=== PATIENT | female | born 1975 | race Caucasian/White ===

== ENCOUNTER 2024-06-21 19:34 | Observation (INO) | payer MEDICAID, SELFPAY ==
[2024-06-21 19:35] VITALS: BMI 40.7
--- NOTE | 2024-06-21 19:39 | EKG_ITS ---
[facility] Test Date: 2024-06-21 Pat Name: LUZ MEZA Department: Room: - Gender: Female Physician Compensation Analyst: : 1975 Requested By: ED Temporary Provider Order Number: [id number] Reading MD: ED Temporary Provider Measurements Intervals [place] Rate: 90 P: 47 IL: 169 QRS: 78 QRSD: 165 T: -5 QT: 434 QTc: 532 Interpretive Statements SINUS RHYTHM INDETERMINATE AXIS RIGHT BUNDLE BRANCH BLOCK [120+ ms QRS DURATION, UPRIGHT V1, 40+ ms S IN I/aVL/V4/V5/V6] MODERATE T-WAVE ABNORMALITY, CONSIDER LATERAL ISCHEMIA [-0.1+ mV T WAVE IN I/aVL/V5/V6] Compared to ECG 03/17/2023 07:43:30 Indeterminate axis now present Sinus tachycardia no longer present Left posterior fascicular block no longer present T-wave abnormality still present Possible ischemia still present /store/S0/[id number]/ecg/[id number].pdf
[2024-06-21 20:18] VITALS: BP 153/97; PULSE 91; RESP 18; TEMP 36.9; O2SAT 96
--- NOTE | 2024-06-21 20:21 | XR_ITS ---
Examination: PA lateral chest 2 views Technique: Upright PA lateral chest 2 views Exam date and time: June 21, 2024 0827 hrs. Indications: Chest pain beginning 3 days ago. Findings: Normal heart size Early pneumonia right middle lobe Pulmonary nodule left upper lobe again depicted, 12 mm Osseous structures intact Impression: Early pneumonia right middle lobe Recommend AP lordotic chest follow-up to confirm pulmonary nodule left upper lobe
--- NOTE | 2024-06-21 20:21 | PD.EDRME ---
Rapid Medical Screening Exam E Arrival date/time: 06/21/24 19:34 48-year-old female presents emergency department complaining of chest pain that radiates to left arm and upper neck with nausea for several days. Chief Complaint: Chest Pain Time Seen by Provider: 06/21/24 20:18 Vital signs: Vital Signs Temperature 98.4 F 06/21/24 20:18 Pulse Rate 91 06/21/24 20:18 Respiratory Rate 18 06/21/24 20:18 Blood Pressure 153/97 H 06/21/24 20:18 Pulse Oximetry (%) 96 06/21/24 20:18 Oxygen Delivery Method Room Air 06/21/24 20:18 Vital signs reviewed by provider: Yes
[2024-06-21 20:47] LABS: Collection Type, Urine Clean Catch
[2024-06-21 21:13] LABS: Bilirubin,Urine Negative (Negative); Blood,Urine Negative (Negative); Clarity,Urine Clear (Clear/Hazy); Color,Urine Yellow (Lt Yel-Yel); Glucose, Urine Negative (Negative); Ketones,Urine Negative (Negative); Leukocyte Esterase,Urine Negative (Negative); Nitrite,Urine Negative (Negative); PH,Urine 6.5 (5.0-7.0); Protein,Urine Trace (Neg - Trace); RBC,Urine 2 /hpf (0-3); Specific Gravity,Urine 1.021 (1.001-1.035); Squamous Epithelial Cell,Urine 2 /hpf (0-5); WBC,Urine 2 /hpf (0-5)
[2024-06-21 21:23] LABS: Amphetamine/Methamp Scrn,U Negative (Negative); Barbiturate Screen,Urine Negative (Negative); Benzodiazepines Screen,Urine Negative (Negative); Benzoylecgonine Screen, Ur Negative (Negative); Fentanyl Screen,Urine Negative (Negative); Opiate Screen,Urine Negative (Negative); THC Screen,Urine Positive (Negative)
[2024-06-21 21:37] LABS: Basophils # (Auto) 0.1 Thou/mm3 (0.0-0.2); Basophils % (Auto) 1 % (0-2.5); Eosinophils # (Auto) 0.2 Thou/mm3 (0.0-0.5); Eosinophils % (Auto) 3 % (0-10); Hematocrit 38.3 % (36.0-46.0); Hemoglobin 12.3 g/dL (12.0-16.0); Immature Granulocytes % (Auto) 0 % (0-0); Immature Granulocytes Auto 0.02 Thou/mm3 (0.00-0.00); Lymphocytes % (Auto) 37 % (10-50); Mean Corpuscular HGB Conc 32.1 g/dl (31.0-37.0); Mean Corpuscular Hemoglobin 28.9 pg (25.0-35.0); Mean Corpuscular Volume 90 fL (80-100); Monocytes # (Auto) 0.5 Thou/mm3 (0.0-0.8); Monocytes % (Auto) 6 % (0-12); Neutrophils # (Auto) 4.3 Thou/mm3 (1.8-7.7); Neutrophils % (Auto) 54 % (37-80); Nucleated Red Blood Cell % 0 /100 WBC (0); Platelet Count 212 Thou/mm3 (140-440); RDW Standard Deviation 44.9 fL (36.4-46.3); Red Blood Count 4.26 Miln/mm3 (4.00-5.20)
[2024-06-21 21:54] LABS: Partial Thromboplastin Time 28.4 Seconds (22.0-36.0); Prothrombin Time 11.4 Seconds (9.0-12.2)
[2024-06-21 21:56] LABS: B-Type Natriuretic Peptide < 20 pg/mL (0-100)
[2024-06-21 22:07] LABS: Alanine Aminotransferase 11 U/L (10-49); Albumin, Serum 4.3 gm/dL (3.5-5.0); Albumin/Globulin Ratio 1.5 (1.2-2.2); Alkaline Phosphatase 80 U/L (46-116); Anion Gap 6 (7-16); Aspartate Amino Transferase 20 U/L (0-34); BUN/Creatinine Ratio 11 Ratio (12-20); Bilirubin,Total 0.6 mg/dL (0.3-1.2); Blood Urea Nitrogen 9 mg/dL (9-23); Carbon Dioxide 33.4 mMol/L (20.0-31.0); Chloride 99 mMol/L (98-107); Creatinine (Component) 0.8 mg/dL (0.6-1.3); Estimated Creatinine Clearance 97.2 mL/min (>60); Globulin 2.8 gm/dL (2.3-3.5); Glucose 94 mg/dL (74-106); Magnesium 1.8 mg/dL (1.6-2.6); Osmolality,Calculated 274 (275-295); Potassium 3.8 mMol/L (3.4-5.1); Sodium 138 mMol/L (136-145); Total Protein 7.1 gm/dL (5.7-8.2); Troponin I < 0.020 ng/mL (0.0-0.045); eGFR > 60 See Note
[2024-06-21 22:15] LABS: Calcium 6.6 mg/dL (8.3-10.6); Calcium (Corrected) 6.6 mg/dL (8.5-10.1)
[2024-06-21 23:48] LABS: Free T4 (Free Thyroxine) 1.19 ng/dL (0.89-1.76)
[2024-06-22] VITALS (18 sets, daily range): BP systolic 131–193; BP diastolic 81–112; PULSE 56–92; RESP 12–98; TEMP 36.6–36.9; O2SAT 94–98; BMI 46.2
--- NOTE | 2024-06-22 01:39 | PD.EDCHEST ---
ED Chest Pain RME/HPI General Chief Complaint: Chest Pain Stated Complaint: CHEST PAIN X 2 DAYS Time Seen by Provider: 06/21/24 20:18 Arrival date/time: 06/21/24 19:34 RME / HPI RME / HPI narrative: 06/21/24 19:34 48-year-old female presents emergency department complaining of chest pain that radiates to left arm and upper neck with nausea for several days. ---- Dr. Lauren?s Main ED Evaluation: 48yo female with pmhx COPD, HTN, asthma, cardiomyopathy, hypothyroidism presents to the ED for a chief complaint of intermittent chest pain x today. Patient states her pain radiates up her neck and to her left arm. She reports associated muscle spasms and cramps, nausea, a headache, numbness, tingling, and sweating. Patient states she took her sublingual nitroglycerin at home without any alleviation of symptoms, so she came in for evaluation. Patient denies any shortness of breath or any other associated symptoms. No known allergies. Patient is currently on a loop recorder, reporting she has a follow-up visit with Dr. Park in 2.5 months to get it read. Related Data Home Medications ?Medication ?Instructions ?Recorded ?Confirmed olanzapine 2.5 mg tablet (Zyprexa) 5 mg PO QDAY 04/25/18 03/28/19 venlafaxine 75 mg capsule,extended 75 mg PO QHS 04/25/18 03/28/19 release 24 hr (Effexor XR) losartan 100 1 tab PO QDAY 04/30/18 03/28/19 mg-hydrochlorothiazide 25 mg tablet amlodipine 5 mg tablet 5 mg PO DAILY 03/28/19 03/28/19 buprenorphine 12 mg-naloxone 3 mg 12 mg buccal BID 03/28/19 03/28/19 sublingual film (Suboxone) levothyroxine 125 mcg tablet 125 mcg PO DAILY 03/28/19 03/28/19 Previous Rx's ?Medication ?Instructions ?Recorded furosemide 20 mg tablet (Lasix) 20 mg PO QAM PRN edema #10 tabs 03/28/19 potassium chloride 10 mEq 10 meq PO QDAY #10 tabs 03/28/19 tablet,extended release nirmatrelvir 300 mg (150 mg See Rx Instructions PO .COMPLEX 09/13/23 x2)-ritonavir 100 mg tablet,dose #30 tabs pack (Paxlovid) Allergies Allergy/AdvReac Type Severity Reaction Status Date / Time No Known Allergies Allergy Verified 06/21/24 19:38 Review of Systems Review of Systems Systems Reviewed: All systems reviewed, normal except as documented Past Medical History Past Medical History NEUROLOGIC: Negative Neurological Disorders or Seizures CARDIAC: Positive Cardiac Disorders, Cardiomyopathy and Hypertension; Negative Congestive Heart Failure RESPIRATORY: Positive Chronic Obstructive Pulmonary Disease (COPD), Asthma and Pneumonia GASTROINTESTINAL: Positive Gastrointestinal Disorders, Gall Bladder Disease and Ulcer; Negative Hepatitis or Colorectal Cancer GENITOURINARY: Negative Genitourinary Disorders or Renal Disease REPRODUCTIVE: Positive Previous Pregnancies; Negative Breast Cancer or Pelvic Inflammatory Disease MUSCULOSKELETAL: Positive Musculoskeletal Disorders, Scoliosis and Fractures ENT: Positive Ear Infection ENDOCRINE: Negative Endocrine Disorders, Diabetes Mellitus Type 1 or Diabetes Mellitus Type 2 HEMATOLOGIC: Positive Blood Disorders and Anemia PSYCHO/SOCIAL: Positive Depression and Anxiety OTHER HISTORY: Positive Shingles, Chicken Pox and Mumps; Negative Hospitalization, Autoimmune Disease, Down Syndrome, Developmental Delay, Falls, Blood Transfusions, Anesthesia Reactions, Organ Transplant, Chemotherapy, Radiation Therapy, Hyperbaric Therapy, MRSA, VRSA, Vancomycin-Resistant Enterococci, Human Immunodeficiency Virus (HIV), Measles, Rubella (Australian Measles), Pertussis, Clostridium Difficile, Breast Cancer, Cervical Cancer or Colorectal Cancer Family History FAMILY HISTORY: Positive Family Respiratory Disorders, Family Cardiac Disorders and Family Cancer; Negative Family Psychiatric Problems, Family Gastrointestinal Problems, Family Surgery or Family Anesthesia Reaction Surgical History SURGICAL: Positive Thyroidectomy, Abdominal Surgery and Tubal Ligation; Negative Cardiac Surgery, Endocrine Surgery, Ear Surgery, Nephrectomy, Joint Replacement, Mastectomy, Lumpectomy or Organ Transplant Social History SMOKING STATUS: Never smoker SUBSTANCE USE: does not use ED Exam Narrative Physical exam: GENERAL APPEARANCE: alert and oriented x 4, well-developed, well-nourished, no acute distress VITALS: All vitals were reviewed and the pulse ox is 98% on room air, which is normal according to my interpretation. HEENT: Normocephalic, atraumatic; pupils equal, round, reactive to light; EOMI; mucous membranes pink, moist; oropharynx clear NECK: Supple LUNGS: CTABL; no wheezes, no rales, no rhonchi HEART: Regular rate, regular rhythm; normal S1, S2; no murmurs ABDOMEN: non distended; normal BS; soft, no tenderness, no guarding, no rebound; no masses, no organomegaly, no hernia BACK: no CVA tenderness EXTREMITIES: atraumatic; no edema NEUROLOGIC: awake; alert and oriented x4; cranial nerves II-XII grossly intact; no focal sensory or motor deficits PSYCHIATRIC: appropriate mood and affect SKIN: warm, dry, normal color; no rashes Course Course Course Narrative: CXR is ordered for determining the etiology of chest pain. Quality Measures none Orders Category Date Time Status EKG (ED ONLY) *Do not use* NOW Care 06/21/24 19:39 Completed EKG (ED Only) Stat Exams 06/21/24 19:39 Draft XR chest 2V Stat Exams 06/21/24 20:21 Completed B-Type Natriuretic Peptide Stat Lab 06/21/24 20:57 Completed CBC Stat Lab 06/21/24 20:57 Completed Comprehensive Metabolic Panel Stat Lab 06/21/24 20:57 Completed Drug Screen,Urine Stat Lab 06/21/24 20:36 Completed Free T4 (Free Thyroxine) Stat Lab 06/21/24 20:57 Completed Magnesium Stat Lab 06/21/24 20:57 Completed Partial Thromboplastin Time Stat Lab 06/21/24 20:57 Completed Prothrombin Time with INR Stat Lab 06/21/24 20:57 Completed TSH [Thyroid Stimulating Hormone] Stat Lab 06/21/24 20:57 Completed Troponin I Stat Lab 06/21/24 20:57 Completed Urinalysis Stat Lab 06/21/24 20:36 Completed Vital Signs Vital signs: Vital Signs Temperature 98.4 F 06/21/24 20:18 Pulse Rate 91 06/21/24 20:18 Respiratory Rate 18 06/21/24 20:18 Blood Pressure 153/97 H 06/21/24 20:18 Pulse Oximetry (%) 96 06/21/24 20:18 Oxygen Delivery Method Room Air 06/21/24 20:18 Chest Pain MDM Narrative MDM Narrative:: Scribe Attestation: 06/22/24 Zena Hogue am scribing for and in the presence of Dr. Lauren. Patient data External records reviewed:: [facility] previous records (Per chart review, patient was seen here on 01/12/24 for anxiety disorder.) Clinical information provided by:: patient Social determinants that could affect healthcare access:: none Patient has the following chronic illnesses:: COPD, HTN, asthma, cardiomyopathy, hypothyroidism How is presenting disease/condition affected by chronic disease/condition?: exacerbated by Evaluation data The following diagnostics were reviewed and interpreted by me:: lab results, radiology exam(s) and EKG tracing(s) Lab and/or radiology exams considered but not ordered:: none Interpretation Summary: CBC is normal, Calcium is low at 6.6, troponin is normal, TSH is elevated at 5.80, Free T4 is normal, UA is unremarkable, UDS is positive for marijuana, according to my interpretation. EKG done at 2014, NSR, rate of 90, normal axis, RBBB, no ectopy, generalized ST abnormalities, QRS: 165, QTc: 483, according to my interpretation. --------- [facility] Report Signed Patient: LUZ MEZA Record#: [id number] Birthdate: 1975 Age/Sex: 48 / F Location: [facility] Attending Dr: Ordering Physician: Sarah Cheung (NGOZI)Dwayne Date of Service: 06/21/24 Procedure(s): XR chest 2V Accession Number(s): [id number] cc: Yulissa Carrington; Art Veras MD; Sarah Cheung (NGOZI)Dwayne~ Examination: PA lateral chest 2 views Technique: Upright PA lateral chest 2 views Exam date and time: June 21, 2024 0827 hrs. Indications: Chest pain beginning 3 days ago. Findings: Normal heart size Early pneumonia right middle lobe Pulmonary nodule left upper lobe again depicted, 12 mm Osseous structures intact Impression: Early pneumonia right middle lobe Recommend AP lordotic chest follow-up to confirm pulmonary nodule left upper lobe Dictated By: Art Veras MD Signed By: <Electronically signed by Art Veras MD in OV> 06/21/24 6425 Medications / Prescriptions Medications or Prescriptions considered but not ordered:: none Medication administrations:: see above Consultations Consultation(s) initiated? (list below): Yes Consultation #1 (Physician, Specialty, Details): Discussed case with [the resident physician, attending Dr. Guerra] from Hospitalist service regarding admission. Discussed patients ED course, exam findings, labs, and radiology results. The Hospitalist [agrees] to accept the patient for admission. Time: 02:29 Diagnosis Chest Pain Differential Diagnosis: pneumothorax and other (STEMI, NSTEMI, PE, aortic dissection) Most likely diagnosis given after review of the tests above:: see below Admission Indicated Admission indicated?: indicated Admission Request Was there a request for admission?: Yes Admission Attestation Admission request attestation: Discussed case with [] from Hospitalist service regarding admission. Discussed patients ED course, exam findings, labs, and radiology results. The Hospitalist [agrees,declines] to accept the patient for admission. Disposition Plan Disposition Plan: Admit Discharge Plan Plan Patient Disposition: Admit Acute Care w/in Hospital Prescriptions/Referrals Prescriptions/Med Rec: No Action venlafaxine [Effexor XR] 75 mg capsule,extended release 24hr 75 mg PO QHS olanzapine [Zyprexa] 2.5 mg tablet 5 mg PO QDAY losartan-hydrochlorothiazide 100-25 mg Tablet 1 tab PO QDAY amlodipine 5 mg Tablet 5 mg PO DAILY levothyroxine 125 mcg Tablet 125 mcg PO DAILY buprenorphine-naloxone [Suboxone] 12-3 mg Film 12 mg buccal BID furosemide [Lasix] 20 mg tablet 20 mg PO QAM PRN (Reason: edema) Qty: 10 0RF potassium chloride 10 mEq tablet extended release 10 meq PO QDAY Qty: 10 0RF Rx Instructions: take with lasix Paxlovid 300 mg (150 mg x 2)-100 mg tablets,dose pack See Rx Instructions .ROUTE .COMPLEX Qty: 30 0RF Rx Instructions: take TWO 150 mg tablets of nirmatrelvir with ONE 100 mg tablet of ritonavir twice daily for 5 days Referrals: Yulissa Carrington PA-C [Primary Care Provider] - In 1 week Problem List Clinical Impression: Hypocalcemia, Chest pain Patient/Caregiver Discharge Instructions Print Language: [place] Island[place] Stand Alone Forms: Evelia Award Info., Patient Portal Info Letter
[2024-06-22] MEDS: MAGNESIUM OXIDE 400 MG TABLET PO (02:49)
[2024-06-22] MEDS: ACETAMINOPHEN IVPB 1,000 MG/100 ML VIAL 250 MG IV (02:49)
--- NOTE | 2024-06-22 04:02 | PD.RESHP ---
Documentation for date of: 06/22/24 HPI History of Present Illness Chief complaint: chest pain History of present illness: HPI: Patient is a 48 year old female with a past medical history significant for essential hypertension, palpitations with implantable loop recorder, depression, anxiety, hypothyroidism s/p total thyroidectomy 2019, obesity, COPD. She follows up with her termite renewal inspector Dr. Park in [place] and PCP at [facility]. Presented to the ED today with a chief complaint of chest pain. Patient endorsed that her chest pain started about 3 days ago. Patient said that she woke up in the morning from sleep and then noticed her chest was hurting. Stated that it was right-sided, both stabbing and pressure like in nature and associated with some tingling of the fingers of her left hand. It lasted for a few moments and then went away. Over the course of the following 3 days patient again had intermittent episodes of chest pain which resolved with sublingual nitroglycerin and acetaminophen. Patient presented to the ED around 3 PM yesterday because she was concerned that her chest pain was not resolving and still had intermittent episodes. Of note patient had complete cardiac workup in the past. She stated that last year December she had a right and left heart catheterization which was reported as normal by her. She also had a transthoracic echocardiogram done which she also stated was normal. Patient also stated that recently she was not compliant with her calcium and vitamin D supplements. ED course: BP 153/97, pulse 91, RR 18, temp 98.4 F, SpO2 96% on room air. Labs significant for Hb 12.3, HCT 38.3, K3.8, Mg 1.8, corrected calcium 6.6, TSH 4.58, Trop <0.02 EKG significant for sinus rhythm, rate 90, RBBB and Q waves in inferior leads. Chest x-ray significant for implantable loop recorder along left fifth rib as well as 12 mm pulmonary nodule left upper lobe. In the ED patient received acetaminophen 1000 Mg IV x 1, magnesium oxide 400 Mg p.o. x 1 and calcium carbonate 600 Mg p.o. x 1. Patient will be admitted to observation for nonspecific chest pain and symptomatic hypocalcemia. Past Medical History Past Medical History Comments PMH COMMENT: Past medical history: ? Palpitations ? Essential hypertension ? Hypothyroidism ? Depression ? Anxiety ? Obesity ? Ex-smoker ? History of alcohol dependence ? COPD Medication list: ?Levothyroxine 137 mcg p.o. daily ? Losartan 100 milligrams p.o. daily ? Aspirin 81 mg p.o. daily ? Gabapentin 300 mg p.o. 3 times daily ? Cymbalta 60 mg p.o. daily ? Suboxone 8/2 1 tab p.o. 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 Previously 20 pack year smoking history. ETHO use: Quit 3 years ago. Previously an alcoholic for 25 years, drank about 24 beers a day. Illicit drug use: Denies Social History Note: lives with and kids Exam Vital Signs Temp Pulse Resp BP Pulse Ox O2 Del Method 98.1 F 60 16 145/95 H 98 Room Air 06/22/24 01:28 06/22/24 01:28 06/22/24 01:28 06/22/24 01:28 06/22/24 01:28 06/22/24 01:28 Results: Labs 06/21/24 20:57 06/21/24 20:57 Labs: Short CBC 06/21/24 Range/Units 20:57 WBC 8.0 (3.6-11.0) Thou/mm3 Hgb 12.3 (12.0-16.0) g/dL Hct 38.3 (36.0-46.0) % Plt Count 212 (140-440) Thou/mm3 BMP 06/21/24 20:57 Sodium 138 Potassium 3.8 Chloride 99 Carbon Dioxide 33.4 H BUN 9 Creatinine 0.8 Glucose 94 Calcium 6.6 L* Cardiac Enzymes 06/21/24 Range/Units 20:57 Troponin I < 0.020 (0.0-0.045) ng/mL Liver Function 06/21/24 Range/Units 20:57 Total Bilirubin 0.6 (0.3-1.2) mg/dL AST 20 (0-34) U/L ALT 11 (10-49) U/L Alkaline Phosphatase 80 (46-116) U/L Albumin 4.3 (3.5-5.0) gm/dL Urine 06/21/24 Range/Units 20:36 Urine Color Yellow (Lt Yel-Yel) Urine Clarity Clear (Clear/Hazy) Urine pH 6.5 (5.0-7.0) Ur Specific [place] 1.021 (1.001-1.035) Urine Protein Trace (Neg - Trace) Urine Glucose (UA) Negative (Negative) Quality Measures Quality Measures none Medications Home Medications and Allergies Home Medications ?Medication ?Instructions ?Recorded ?Confirmed ?Type olanzapine 2.5 mg tablet (Zyprexa) 5 mg PO QDAY 04/25/18 03/28/19 History venlafaxine 75 mg capsule,extended 75 mg PO QHS 04/25/18 03/28/19 History release 24 hr (Effexor XR) losartan 100 1 tab PO QDAY 04/30/18 03/28/19 History mg-hydrochlorothiazide 25 mg tablet amlodipine 5 mg tablet 5 mg PO DAILY 03/28/19 03/28/19 History buprenorphine 12 mg-naloxone 3 mg 12 mg buccal BID 03/28/19 03/28/19 History sublingual film (Suboxone) levothyroxine 125 mcg tablet 125 mcg PO DAILY 03/28/19 03/28/19 History Allergies Allergy/AdvReac Type Severity Reaction Status Date / Time No Known Allergies Allergy Verified 06/21/24 19:38 Visit Medications Acetaminophen (Acetaminophen 325 Mg Tablet) 650 mg PO Q6H PRN PRN Reason: Fever >100.3 or pain Stop: 07/22/24 03:44 Aspirin (Aspirin Ec 81 Mg Tabec) 81 mg PO QDAY MASSIMO Stop: 07/22/24 08:59 Duloxetine HCl (Duloxetine Hcl 30 Mg Capsule) 60 mg PO QDAY MASSIMO Stop: 07/22/24 08:59 Gabapentin (Gabapentin 300 Mg Capsule) 300 mg PO TID MASSIMO Stop: 07/22/24 05:59 Heparin Sodium (Porcine) (Heparin Sod Inj 5000 Unit/Ml Vial) 5,000 unit SC BID MASSIMO Stop: 07/06/24 08:59 Magnesium Sulfate (Magnesium Sulfate Ivpb) 2 gm in 50 mls @ 25 mls/hr IV X1 ONE Stop: 06/22/24 05:56 Levothyroxine Sodium (Levothyroxine Sodium 125 Mcg Tablet) 137 mcg PO ACBR MASSIMO Stop: 07/22/24 05:59 Losartan Potassium (Losartan Potassium 25 Mg Tablet) 100 mg PO QDAY MASSIMO Stop: 07/22/24 08:59 Ondansetron HCl (Ondansetron Inj 2 Mg/Ml Inj 2 Ml) 4 mg IV Q6H PRN; Protocol PRN Reason: NAUSEA OR VOMITING Stop: 07/22/24 03:49 Pantoprazole Sodium (Pantoprazole 40 Mg Tablet) 40 mg PO QDAY MASSIMO Stop: 07/22/24 08:59 Sennosides (Senna Tablet) 1 tab PO QDAY MASSIMO; Protocol Stop: 07/22/24 08:59 Discontinued Medications Calcium Carbonate (Calcium Carbonate 600 Mg Tablet) 600 mg PO X1 ONE Stop: 06/22/24 02:32 Calcium Gluconate (Calcium Gluconate 10% Inj 1 Gm/10 Ml Vial) 1 gm IV X1 ONE Stop: 06/22/24 03:57 Acetaminophen (Ofirmev Inj) 1,000 mg in 100 mls @ 250 mls/hr IV NOW ONE Stop: 06/22/24 02:52 Last Admin: 06/22/24 02:49 Dose: 250 mls/hr Magnesium Oxide (Magnesium Oxide 400 Mg Tablet) 400 mg PO X1 ONE Stop: 06/22/24 02:33 Last Admin: 06/22/24 02:49 Dose: 400 mg Assessment & Plan Plan Patient is a 48 year old female with a past medical history significant for essential hypertension, palpitations with implantable loop recorder, depression, anxiety, hypothyroidism s/p total thyroidectomy 2018, obesity, COPD. She follows up with her termite renewal inspector Dr. Park in [place] and PCP at [facility]. Presented to the ED today with a chief complaint of chest pain. Patient will be admitted to observation for nonspecific chest pain and symptomatic hypocalcemia. 1. Chest pain, unspecified 2. Symptomatic hypocalcemia 3. Palpitations Patient presented with nonspecific chest pain. She stated that it was right-sided stabbing in nature as well as pressure. Also intermittent and resolved with sublingual nitro as well as acetaminophen. Pain did not change in intensity today but patient was worried it might be something serious so she came into the hospital. DDx: Symptomatic hypocalcemia, anxiety, musculoskeletal, pleuritic pain Patient also had an implantable loop recorder placed April 2024 by her recording studio set up worker Dr. Park. EKG significant for sinus rhythm, rate 90, RBBB and Q waves in inferior leads. Trop <0.02 Corrected Ca 6.6, Mg 1.8, K 3.8 Of note patient had complete cardiac workup in the past. She stated that last year December she had a right and left heart catheterization which was reported as normal by her. She also had a transthoracic echocardiogram done which she also stated was normal. Patient also stated that recently she was not compliant with her calcium and vitamin D supplements. Plan: ? Cardiac diet - Telemetry monitoring - PTH - 25 hydroxy vitamin D ? Calcium gluconate 1 g IV x 1 ? Magnesium sulfate 2 g IV x 1 ? KCl 20 mEq p.o. x 1 4. Essential hypertension Home medication losartan 100 Mg p.o. daily Plan: ? Continue home medication losartan 100 Mg p.o. daily 5. Hypothyroidism s/p total thyroidectomy 2018 Patient had total thyroidectomy secondary to malignant nodule. Patient unsure of what type and was lost to follow-up. Home medication levothyroxine 137 mcg p.o. daily, calcium and vitamin D supplements Plan: ? Resume home medication levothyroxine 137 mcg p.o. daily 6. Depression 7. Anxiety Home medication gabapentin 300 Mg p.o. 3 times daily, Cymbalta 60 Mg p.o. daily Plan: ? Resume home medication gabapentin 300 Mg p.o. 3 times daily and Cymbalta 60 Mg p.o. daily Patient quit smoking last year December but previously had 8. Obesity class III Ex-Smoker 96-eexs-piwk history. BMI 40.7 9. History of Alcohol dependence Patient previously had a history of alcohol dependence. Drank for 25 years approximately 24 beers per day. Sober for the past 3 years and currently on Suboxone 8/2 3 times daily. 10. COPD Patient states that she has COPD but not on any home inhalers or medication. Plan: ? DuoNebs as needed Health maintenance: Disposition: IV calcium. Hypocalcemia workup. Observation. Anticipate discharge within next 24 hours Diet: Cardiac Lines: pIVs GI Prophylaxis: Pantoprazole Thrombo Prophylaxis: Heparin Code status: FULL CODE Plan of care discussed with Attending Dr. Sadia Borrego MD PGY 1 Attending Provider Attestation/Addendum 48-year-old obese female with hypertension, hypothyroidism COPD, is being admitted for evaluation and management of chest pain. She currently has a loop recorder. Chest x-ray showed early right-sided pneumonia, there is also a left lung nodule 12 mm. Patient states she's had [place] fever. She seess termite renewal inspector Dr. Park. She's had negative coronary (radial approach) angiogram last December. EKG showed right bundle branch block. Troponin is 0.02. Calcium 6.6.
[2024-06-22] MEDS: CALCIUM CARBONATE 600 MG TABLET PO (04:03)
--- NOTE | 2024-06-22 04:44 | PC.NURSE ---
[address] MADISYN FINE TO GIVE IV CALCIUM AND MAGNESIUM.
[2024-06-22] MEDS: CALCIUM GLUCONATE 10% INJ 1 GM/10 ML VIAL IV (05:19)
[2024-06-22] MEDS: LEVOTHYROXINE SODIUM 25 MCG TABLET PO (05:20)
[2024-06-22] MEDS: Magnesium Sulfate 2 GM Ivpb 2 GM/50 ML BAG IV (05:20)
[2024-06-22] MEDS: POTASSIUM CHLORIDE 20 mEq TABCR PO (05:20)
[2024-06-22] MEDS: GABAPENTIN 300 MG CAPSULE PO ×3 (05:20→21:15)
[2024-06-22] MEDS: LEVOTHYROXINE SODIUM 112 MCG TABLET PO (06:09)
[2024-06-22 07:03] LABS: Basophils % (Auto) 1 % (0-2.5); Eosinophils # (Auto) 0.1 Thou/mm3 (0.0-0.5); Eosinophils % (Auto) 2 % (0-10); Hematocrit 36.1 % (36.0-46.0); Hemoglobin 11.9 g/dL (12.0-16.0); Immature Granulocytes % (Auto) 0 % (0-0); Immature Granulocytes Auto 0.02 Thou/mm3 (0.00-0.00); Lymphocytes # (Auto) 2.4 Thou/mm3 (1.0-4.8); Lymphocytes % (Auto) 35 % (10-50); Mean Corpuscular Hemoglobin 29.1 pg (25.0-35.0); Mean Corpuscular Volume 88 fL (80-100); Monocytes # (Auto) 0.5 Thou/mm3 (0.0-0.8); Monocytes % (Auto) 7 % (0-12); Neutrophils # (Auto) 3.7 Thou/mm3 (1.8-7.7); Neutrophils % (Auto) 55 % (37-80); Nucleated Red Blood Cell % 0 /100 WBC (0); Platelet Count 204 Thou/mm3 (140-440); RDW Standard Deviation 44.9 fL (36.4-46.3); Red Blood Count 4.09 Miln/mm3 (4.00-5.20); White Blood Count 6.8 Thou/mm3 (3.6-11.0)
[2024-06-22 07:49] LABS: Alanine Aminotransferase 13 U/L (10-49); Albumin, Serum 4.2 gm/dL (3.5-5.0); Albumin/Globulin Ratio 1.7 (1.2-2.2); Alkaline Phosphatase 76 U/L (46-116); Anion Gap 8 (7-16); Aspartate Amino Transferase 16 U/L (0-34); BUN/Creatinine Ratio 13 Ratio (12-20); Bilirubin,Total 0.7 mg/dL (0.3-1.2); Blood Urea Nitrogen 9 mg/dL (9-23); Carbon Dioxide 30.7 mMol/L (20.0-31.0); Cardiac Risk Estimate 3.1 RATIO (3.7-5.6); Chloride 98 mMol/L (98-107); Cholesterol 153 mg/dL (132-200); Creatinine (Component) 0.7 mg/dL (0.6-1.3); Estimated Creatinine Clearance 111.1 mL/min (>60); Globulin 2.5 gm/dL (2.3-3.5); Glucose 97 mg/dL (74-106); HDL Cholesterol 50 mg/dL (40-60); LDL Cholesterol,Calculated 90 mg/dL (0-130); Magnesium 2.3 mg/dL (1.6-2.6); Osmolality,Calculated 272 (275-295); Potassium 3.3 mMol/L (3.4-5.1); Sodium 137 mMol/L (136-145); Total Protein 6.7 gm/dL (5.7-8.2); Triglycerides 63 mg/dL (30-150); eGFR > 60 See Note
[2024-06-22 08:12] LABS: Calcium 6.9 mg/dL (8.3-10.6); Calcium (Corrected) 6.9 mg/dL (8.5-10.1)
[2024-06-22] MEDS: SENNA TABLET 1 TAB PO (08:28)
[2024-06-22] MEDS: ASPIRIN EC 81 MG TABEC PO (08:30)
[2024-06-22] MEDS: POTASSIUM CHL 10 mEq IVPB 10 MEQ/100 ML BAG 100 MEQ IV ×3 (08:30→15:46)
[2024-06-22] MEDS: PANTOPRAZOLE 40 MG TABLET PO (08:30)
[2024-06-22] MEDS: LOSARTAN POTASSIUM 25 MG TABLET 100 MG PO (08:31)
[2024-06-22] MEDS: HEPARIN SOD INJ 5000 UNIT/ML VIAL SC ×2 (08:33→21:20)
[2024-06-22] MEDS: DULoxetine HCL 30 MG CAPSULE 60 MG PO (08:46)
[2024-06-22 10:13] LABS: Calcium 7.1 mg/dL (8.3-10.6)
[2024-06-22] MEDS: POTASSIUM CHL 10 mEq IVPB 10 MEQ/100 ML BAG 50 MEQ IV (11:09)
[2024-06-22] MEDS: CALCIUM GLUC/NS 1000MG IVPB 1,000 MG/50 ML BAG 50 MG IV (11:10)
[2024-06-22] MEDS: cefTRIAXone/D5w 1gm IV premix 50 ML IV (11:13)
--- NOTE | 2024-06-22 11:47 | PC.CC ---
Pt Ivis Romero is a 48 yr old female admitted to hospitalist services for chest pain, symptomatic hypocalcemia, palpitations, essential hypertension. ASW met with pt complete initial assessment. At time of encounter pt is noted to be alert and oriented to person, place and situation. Pt expressed understanding admission orders. Pt able to confirm all demographic information. Pt is from home [address] In the home pt lives with her Kristofer Kauffman [phone]. Pt identifies her as surrogate DM. At baseline pt reports being independent with her ADLs and with ambulation. Pt is not diabetic and is not on dialysis. Pt does not require supplemental O2. Pt is followed by [facility] for primary care. At time of D/c pt will return home with transport provided by her family.
--- NOTE | 2024-06-22 11:49 | ECHO_ITS ---
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 16 - 28 cm?/m? Ascending Aorta Diameter 3.0 cm M-MODE Aortic Root Diameter MM 2.9 cm LA Systolic Diameter MM 3.9 cm LA Ao Ratio MM 1.3 AV Cusp Separation MM 2.2 cm DOPPLER AV Peak Velocity 164.0 cm/s AV Peak Gradient 10.8 mmHg AV Mean Gradient 6.0 mmHg AV Velocity Time Integral 38.4 cm LVOT Peak Velocity 105.0 cm/s LVOT Peak Gradient 4.4 mmHg LVOT Velocity Time Integral 25.6 cm LVOT Cardiac Index 2184.4 cm?/min?m? AV Area Cont Eq vti 2.1 cm? AV Area Cont Eq pk 2.0 cm? MV Peak Velocity 116.0 cm/s MV Peak Gradient 5.4 mmHg MV Mean Velocity 65.8 cm/s MV Mean Gradient 2.0 mmHg MV Area PHT 3.1 cm? MR Peak Velocity 486.0 cm/s MR Peak Gradient 94.5 mmHg Mitral E Point Velocity 91.7 cm/s Mitral A Point Velocity 85.4 cm/s Mitral E to A Ratio 1.1 LV E' Lateral Velocity 11.7 cm/s Mitral E to LV E' Lateral Ratio 7.8 LV E' Septal Velocity 7.5 cm/s Mitral E to LV E' Septal Ratio 12.2 TR Peak Velocity 246.0 cm/s TR Peak Gradient 24.2 mmHg FINDINGS Left Ventricle Normal left ventricular size, wall thickness, systolic function with no obvious regional wall motion abnormalities. The ejection fraction is visually estimated at 55-60%. Right Ventricle The right ventricle is normal in size and systolic function. The estimated right ventricular systoli c pressure, 29mmHg. RAP 5. Left Atrium The left atrium is normal by two-dimensional, color flow and Doppler imaging with no structural abnormalities, no thrombus formation present. Right Atrium The right atrium is normal by two-dimensional imaging, color flow and Doppler imaging with no struct ural abnormalities, no thrombus formation present. Atrial Septum The interatrial septum appears normal with no evidence of a shunt. Aorta The aorta is normal by two-dimensional, color flow and Doppler interrogation. Mitral Valve The mitral valve is normal by two-dimensional, color flow and Doppler interrogation. There is mild m itral valve regurgitation. Aortic Valve The aortic valve is trileaflet and normal by two-dimensional, color flow and Doppler interrogation. There is no significant aortic valve regurgitation. Tricuspid Valve The tricuspid valve is normal by two-dimensional, color flow and Doppler interrogation. There is tra ce tricuspid valve regurgitation. Pulmonic Valve There is no significant pulmonic valve regurgitation. Vessels The pulmonary artery appears normal. The inferior vena cava pulmonary and hepatic veins appear tootie l. Pericardium The pericardium is normal by two-dimensional imaging. There is no significant pericardial effusion. CONCLUSIONS Indication: Chest pain Normal LV size and function. Stage I diastolic dysfunction. Estimated EF 55-60% Normal RV size and function. Mild MR. Trace TR. EF appeared normal but images of the apex are not clear. Recommended to follow-up echo with primary casino assistant manager in [place] with [facility] as it is unavailable at this institution. Asher Robert (Electronically Signed) Final Date: 23 June 2024 12:50
--- NOTE | 2024-06-22 12:02 | PD.RESPRO ---
Documentation for date of: 06/22/24 Subjective Subjective Interval history: Patient seen today at the bedside fine awake, alert, oriented x 3. No overnight events reported. Vital signs at this time significant for hypertension, started on nifedipine. Chest x-ray showed signs of pneumonia started on started on ceftriaxone. Corrected calcium was found to be low on morning labs was repleted, ordered PTH, vitamin D, we will follow-up on those. Cardiology Dr. Robert consulted, appreciate recommendations. Exam Vital Signs Temp Pulse Resp BP Pulse Ox O2 Del Method 98.5 F 61 14 152/81 H 95 Room Air 06/22/24 10:40 06/22/24 10:40 06/22/24 10:40 06/22/24 10:40 06/22/24 10:40 06/22/24 10:40 Narrative Exam Physical Exam GENERAL: NAD, AAOx3, obese HEENT: Moist mucosa. Eyes open, symmetrical, & clear CARDIO: Heart RRR, no obvious murmurs PULM: No noted coughing/[id number]-[id number] wheezing GI: Abdomen soft, nondistended, no pain on palpation. BSx4 SKIN/MSK/EXT: No wounds/rashes/edema/amputations, no pain on palpation. Pedal pulses present B/L, paresthesias in left upper, bilateral lower extremities NEURO: AAOx3, no focal neuro deficits, able to move all 4 extremities Objective Labs 06/22/24 06:18 06/22/24 06:18 Labs: Laboratory Results - last 24 hr 06/21/24 06/21/24 06/22/24 20:36 20:57 06:18 WBC 8.0 6.8 RBC 4.26 4.09 Hgb 12.3 11.9 L Hct 38.3 36.1 MCV 90 88 MCH 28.9 29.1 MCHC 32.1 33.0 RDW Std Deviation 44.9 44.9 Plt Count 212 204 Neut % (Auto) 54 55 Lymph % (Auto) 37 35 [place] % (Auto) 6 7 Eos % (Auto) 3 2 Baso % (Auto) 1 1 Neut # (Auto) 4.3 3.7 Lymph # (Auto) 3.0 2.4 [place] # (Auto) 0.5 0.5 Eos # (Auto) 0.2 0.1 Baso # (Auto) 0.1 0.0 Immature Gran # (Auto) 0.02 H 0.02 H Absolute Nucleated RBC 0.00 0.00 Immature Gran % 0 0 Nucleated RBC % 0 0 PT 11.4 INR 1.0 APTT 28.4 Sodium 138 137 Potassium 3.8 3.3 L D Chloride 99 98 Carbon Dioxide 33.4 H 30.7 Anion Gap 6 L 8 BUN 9 9 Creatinine 0.8 0.7 Estim Creat Clear Calc 97.2 111.1 eGFR > 60 > 60 BUN/Creatinine Ratio 11 L 13 Glucose 94 97 Calculated Osmolality 274 L 272 L Calcium 6.6 L* 6.9 L Corrected Calcium 6.6 L* 6.9 L* Magnesium 1.8 2.3 Total Bilirubin 0.6 0.7 AST 20 16 ALT 11 13 Alkaline Phosphatase 80 76 Troponin I < 0.020 B-Natriuretic Peptide < 20 Total Protein 7.1 6.7 Albumin 4.3 4.2 Globulin 2.8 2.5 Albumin/Globulin Ratio 1.5 1.7 Triglycerides 63 Cholesterol 153 LDL Cholesterol, Calc 90 HDL Cholesterol 50 Cholesterol/HDL Ratio 3.1 L TSH 5.80 H Free T4 1.19 Ur Collection Type Clean Catch Urine Color Yellow Urine Clarity Clear Urine pH 6.5 Ur Specific [place] 1.021 Urine Protein Trace Urine Glucose (UA) Negative Urine Ketones Negative Urine Blood Negative Urine Nitrite Negative Urine Bilirubin Negative Urine Urobilinogen (Auto) 2.0 Ur Leukocyte Esterase Negative Urine RBC 2 Urine WBC 2 Ur Squamous Epith Cells 2 Urine Bacteria None Urine Opiates Screen Negative Urine Fentanyl Screen Negative Ur Barbiturates Screen Negative U Amphetamin/Meth Scrn Negative U Benzodiazepines Scrn Negative U Cocaine Metab Screen Negative U Marijuana (THC) Screen Positive A 06/22/24 09:23 WBC RBC Hgb Hct MCV MCH MCHC RDW Std Deviation Plt Count Neut % (Auto) Lymph % (Auto) [place] % (Auto) Eos % (Auto) Baso % (Auto) Neut # (Auto) Lymph # (Auto) [place] # (Auto) Eos # (Auto) Baso # (Auto) Immature Gran # (Auto) Absolute Nucleated RBC Immature Gran % Nucleated RBC % PT INR APTT Sodium Potassium Chloride Carbon Dioxide Anion Gap BUN Creatinine Estim Creat Clear Calc eGFR BUN/Creatinine Ratio Glucose Calculated Osmolality Calcium 7.1 L Corrected Calcium Magnesium Total Bilirubin AST ALT Alkaline Phosphatase Troponin I B-Natriuretic Peptide Total Protein Albumin Globulin Albumin/Globulin Ratio Triglycerides Cholesterol LDL Cholesterol, Calc HDL Cholesterol Cholesterol/HDL Ratio TSH Free T4 Ur Collection Type Urine Color Urine Clarity Urine pH Ur Specific [place] Urine Protein Urine Glucose (UA) Urine Ketones Urine Blood Urine Nitrite Urine Bilirubin Urine Urobilinogen (Auto) Ur Leukocyte Esterase Urine RBC Urine WBC Ur Squamous Epith Cells Urine Bacteria Urine Opiates Screen Urine Fentanyl Screen Ur Barbiturates Screen U Amphetamin/Meth Scrn U Benzodiazepines Scrn U Cocaine Metab Screen U Marijuana (THC) Screen Quality Measures Quality Measures none Assessment & Plan Assessment Current Active Medications: Generic Name Dose Route Start Last Admin Trade Name Freq PRN Reason Stop Dose Admin Acetaminophen 650 mg 06/22/24 03:45 Acetaminophen 325 Mg Tablet PO 07/22/24 03:44 Q6H PRN Fever >100.3 or pain Aspirin 81 mg 06/22/24 09:00 06/22/24 08:30 Aspirin Ec 81 Mg Tabec PO 07/22/24 08:59 81 mg QDAY MASSIMO Administration Duloxetine HCl 60 mg 06/22/24 09:00 06/22/24 08:46 Duloxetine Hcl 30 Mg Capsule PO 07/22/24 08:59 60 mg QDAY MASSIMO Administration Gabapentin 300 mg 06/22/24 06:00 06/22/24 05:20 Gabapentin 300 Mg Capsule PO 07/22/24 05:59 300 mg TID MASSIMO Administration Heparin Sodium (Porcine) 5,000 unit 06/22/24 09:00 06/22/24 08:33 Heparin Sod Inj 5000 Unit/Ml Vial SC 07/06/24 08:59 5,000 unit BID MASSIMO Administration Potassium Chloride 10 meq in 100 mls @ 100 mls/hr 06/22/24 08:30 06/22/24 11:09 Kcl Ivpb IV 06/22/24 12:29 50 mls/hr Q1H MASSIMO Administration Ceftriaxone Sodium/Dextrose 50 mls @ 100 mls/hr 06/22/24 10:07 06/22/24 11:13 Rocephin/D5w 1gm Iv Premix IV 06/29/24 10:06 100 mls/hr QDAY MASSIMO Administration Levothyroxine Sodium 112 mcg 06/22/24 06:00 06/22/24 06:09 Levothyroxine Sodium 112 Mcg Tablet PO 07/22/24 05:59 112 mcg ACBR MASSIMO Administration Levothyroxine Sodium 25 mcg 06/22/24 06:00 06/22/24 05:20 Levothyroxine Sodium 25 Mcg Tablet PO 07/22/24 05:59 25 mcg ACBR MASSIMO Administration Losartan Potassium 100 mg 06/22/24 09:00 06/22/24 08:31 Losartan Potassium 25 Mg Tablet PO 07/22/24 08:59 100 mg QDAY MASSIMO Administration Ondansetron HCl 4 mg 06/22/24 03:50 Ondansetron Inj 2 Mg/Ml Inj 2 Ml IV 07/22/24 03:49 Q6H PRN NAUSEA OR VOMITING Protocol Pantoprazole Sodium 40 mg 06/22/24 09:00 06/22/24 08:30 Pantoprazole 40 Mg Tablet PO 07/22/24 08:59 40 mg QDAY MASSIMO Administration Sennosides 1 tab 06/22/24 09:00 06/22/24 08:28 Senna Tablet PO 07/22/24 08:59 1 tab QDAY MASSIMO Administration Protocol Plan 48 year old female with a past medical history significant for essential hypertension, palpitations with implantable loop recorder, depression, anxiety, hypothyroidism s/p total thyroidectomy 2018, obesity, COPD. She follows up with her securities settlement processor Dr. Park in [place] and PCP at [facility] [[email or web address] Presented to the ED today with a chief complaint of chest pain. Patient will be admitted to observation for nonspecific chest pain and symptomatic hypocalcemia. #Chest pain, unspecified #Palpitations Patient presented with nonspecific chest pain. Pain described as right-sided stabbing in nature as well as pressure like Also intermittent and resolved with sublingual nitro as well as acetaminophen. Pain did not change in intensity today but patient was worried it might be something serious so she came into the hospital. Patient states this chest pain has been going on for about 6 months coming in and out has used nitro in the past which helped with the pain but this time pain was ongoing for 2 to 3 days nitro was not helping. At this time patient has no chest pain only paresthesias in the upper and lower extremities. DDx: Symptomatic hypocalcemia, anxiety, musculoskeletal, pleuritic pain Patient also had an implantable loop recorder placed April [address] Park. EKG significant for sinus rhythm, rate 90, RBBB and Q waves in inferior leads. Corrected Ca 6.6, Mg 1.8, K 3.8, Trop <0.02 Of note patient had complete cardiac workup in the past. She stated that last year December she had a right and left heart catheterization which was reported as normal by her. She also had a transthoracic echocardiogram done which she also stated was normal. Patient also stated that recently she was not compliant with her calcium and vitamin D supplements. - Cardiology consulted, appreciate recommendations - Telemetry monitoring - PTH - 25 hydroxy vitamin D - Calcium gluconate 1 g IV x 1 #Community-acquired pneumonia Evidence of early pneumonia on chest x-ray Patient without SIRS criteria - On ceftriaxone 1 g daily # Hypertensive urgency Home medication losartan 100 Mg p.o. daily - Continue home medication losartan 100 Mg p.o. 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 Patient unsure of what type and was lost to follow-up. Home medication levothyroxine 137 mcg p.o. daily, calcium and vitamin D supplements ? Resume home medication levothyroxine 137 mcg p.o. daily # Depression #Anxiety Home medication gabapentin 300 Mg p.o. 3 times daily, Cymbalta 60 Mg p.o. daily ? on home medication gabapentin 300 Mg p.o. 3 times daily and Cymbalta 60 Mg p.o. daily #Former smoker #Obesity class III Ex-Smoker [id number] history. BMI 40.7 #History of Alcohol dependence Patient previously had a history of alcohol dependence. Drank for 25 years approximately 24 beers per day. Sober for the past 3 years and currently on Suboxone 8/2 3 times daily. #COPD Patient states that she has COPD but not on any home inhalers or medication. ? DuoNebs as needed Case discussed with my senior Dr. Jules PGY-[address] Yonatan Portillo MD PGY-1 Disposition: Med telemetry Fluids: None Feeding: Cardiac diet Thrombo prophylaxis: Heparin Gastric Ulcer prophylaxis: Pantoprazole CODE STATUS: Full code Senior resident attestation: Patient evaluated and examined at the bedside, plan of care discussed with rest of the team including my attending physician, except as noted. Patient is a 48-year-old female past medical history of hypertension, palpitations with implantable loop, followed by securities settlement processor Dr. Park in [place], history of anxiety and hypothyroidism following total thyroidectomy, and COPD. Patient came into the ER complaining of nonspecific chest pain. She took nitroglycerin at home but found no relief and decided to come to the emergency room. Noted to have hypertensive urgency and hypercalcemia on labs. Troponins negative, will repeat troponins due to persistent chest pain. Chest x-ray showed pneumonia, will start antibiotics. #Chest pain #Pneumonia #Hypertensive urgency #History of COPD #Hypokalemia #Hypocalcemia Quresh PGY2
[2024-06-22] MEDS: ACETAMINOPHEN 325 MG TABLET 650 MG PO (12:42)
--- NOTE | 2024-06-22 13:52 | ESCONSULT_ITS ---
<Statement entered by Asher Robert MD - 06/23/24 01:43> I have personally seen and examined the patient separately on the above date of service and discussed the plan of care with the resident. I reviewed the resident Dr. Sharma consultation progress note and agree with the resident findings and plan in the note above and have also edited the documentation to reflect my findings and plan. Patient known to me from one of the previous admissions in March 2023. 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 Park in January 2024, morbid obesity, essential hypertension, hypothyroidism, depression, anxiety, history of cholelithiasis, asthma, COPD, current smoker, history of scoliosis, alcohol dependence, history of marijuana use presented to the emergency department for further evaluation of chest pain. Patient apparently has been having chest pain and palpitations which started a few days ago. Which is mostly right-sided and the stabbing in nature and was intermittent associated with some tingling and numbness of the left hand. She has been having on and off chest pains for the last year along with some palpitations for which she had extensive workup done at [facility] by primary manager integration Dr. Park. Patient apparently had a Holter monitoring and eventually a loop recorder was placed in January 2024. I reviewed the records from [facility] and it showed that patient did have mild systolic congestive heart failure with an EF of 45% suggestive of possible Takotsubo syndrome and patient did have a left heart cardiac catheterization did not show any overt CAD but there was questionable mild myocardial bridging that was noted. EKG reviewed here and it showed some Q waves in the inferior leads otherwise shows right bundle branch block and normal sinus rhythm without other acute ST-T changes. Troponins 2 sets were negative and patient does not complain of any chest pain or chest pressure at the present point of time. Chest x-ray did not show any overt heart failure. Recommend echocardiogram to rule out any regional wall motion for medicine to reevaluate her LV ejection fraction and see if patient improved from her previous Takotsubo syndrome. Patient given her history of Takotsubo syndrome along with mild heart failure as well as mild myocardial bridging should be on beta-shira metoprolol XL 25 mg once daily and continue to uptitrate it. Continue amlodipine also if there is blood pressure room has both beta-blockers and calcium channel blockers due to help the myocardial bridging. Patient is on ARB and recommend to continue with losartan for now. Strict input output, daily weights and 2 g sodium diet. Continue brass roller given the patient history of palpitations the patient can follow-up with primary manager integration for the loop recorder results for further evaluation. Check TSH and free T4 for now along with lipid profile and A1c. On admission patient also noted to have severe hypocalcemia at 6.6 and even corrected calcium was only 6.8. Patient also had hypomagnesemia at 1.8 and mild hypokalemia at 3.8. Patient does have a history of thyroid cancer status post thyroidectomy recommend to obtain the operative report and consider further evaluation of the calcium patient declined wishing to have possible palpitations. Check PTH as well as TSH and free T4 as noted above. Management of rest of the medical conditions as per primary team. Thank you for the consult and allowing me to participate in the care of the patient. Cardiology will continue to follow. Asher Robert M.D. Interventional Cardiology HPI Data of Consult Requesting Physician: Lyn Tam MD Admitting Provider: Yfn Mccullough MD Attending Provider: Lyn Tam MD Primary Care Provider: Yulissa Carrington PA-C Consult Narrative History of present illness: Ivis is a 48 y/o female with PMHx of hypothyroidism s/p total thyroidectomy [address] Olivas, HTN, palpitations s/p implantable loop recorder (Done in April 2024), depression, anxiety, obesity, COPD, and substance abuse (Meth) who is currently being evaluated for palpitations that have been ongoing for about 3 days ago, described as intermittent and now constant and worsening, that have becme painful rated 5/10, not alleviated with aspirin or nitro, not worse with exertion or position, and has had these symptoms before. She says that she has has these symptoms before, she also says that she sees Dr. Park manager integration and he had done a Cardiac cath recently which was normal as well. She also gotten an Echo recently and it was also normal as well. She also states that she has gotten a thyrodiectomy for possible cancer, however did not have her parathyroids removed. She also takes magnesium as well but does not take calcium supplements consistently. She has been told that she has had low calcium before. She does note that she has also noticed facial twitching at times. She denies any SOB, NVD, constipation, headache at this time. ED Course: She arrived with BP 153/97, pulse 91, RR 18, temp 98.4 F, SpO2 96% on room air. Labs showed, Hgb 12.3, HCT 38.3, K3.8, Mg 1.8, corrected calcium 6.6, TSH 4.58, Trop <0.02, EKG significant for sinus rhythm, rate 90, RBBB and Q waves in inferior leads. Chest x-ray significant for implantable loop recorder along left fifth rib as well as 12 mm pulmonary nodule left upper lobe. In the ED patient received acetaminophen 1000 Mg IV x 1, magnesium oxide 400 Mg p.o. x 1 and calcium carbonate 600 Mg p.o. x 1. Medicine and cardiology were consulted and pt was admitted to floors. PMHx: As above Surgeries: Total thyroidectomy, uterine ablation, cholecystectomy, and umbilical hernia repair Allergies: NKDA Meds: Levothyroxine 137 mcg p.o. daily, Losartan 100 milligrams p.o. daily, Aspirin 81 mg p.o. daily, Gabapentin 300 mg p.o. 3 times daily, Cymbalta 60 mg p.o. daily, Suboxone 8/2 1 tab p.o. 3 times daily Family Hx: Hx of CAD and heart attacks in parents later in life. Siblings have pacemakers put into them due to having sick sinus syndrome. Social Hx: About 20 pack year smoking hx, with 4 kids, quit drinking about 3 years ago and was an alcoholic at some point Lives with and kids. Hasnt used meth in over 20 years. Takes suboxone cc:: cc: Lyn Tam MD Review of Systems Review of Systems Narrative Review of Systems: Constitutional: No fever, chills, fatigue, weakness, weight loss HEENT: No eye pain, vision loss, ear pain, hearing loss, dysphagia, Cardiovascular: + chest pain, +palpitations, no edema, pain with walking Respiratory: No cough, shortness of breath, wheezing GI: No NVD, abdominal pain, constipation, blood in stool, loss of appetite, heartburn Extremities: No presence of pitting edema MSK: No back pain, joint pain, joint swelling Neuro: No dizziness, weakness, headaches, seizures, tremors, +facial twitching Psych: No anxiety, depression Exam Vital Signs Temp Pulse Resp BP Pulse Ox O2 Del Method 98.5 F 61 14 152/81 H 95 Room Air 06/22/24 10:40 06/22/24 10:40 06/22/24 10:40 06/22/24 10:40 06/22/24 10:40 06/22/24 10:40 Narrative Exam General: AAOx3, NAD, morbidly obese female lying down HEENT: Moist mucous membranes, conjunctiva clear, EOMI, PERRLA, does have some facial twitching Cardiovascular: S1, S2, radial pulses +2 bilat, RRR Pulmonary: CTAB bilat no cough, no wheezing GI: No tenderness to light or deep palpitation, no guarding, rigidity, rebound tenderness or distension Extremities: No presence of trace or pitting edema in lower extremities bilaterally, dorsalis pedis pulses +2 bilaterally Neuro: AAOx3, no focal motor or sensory deficits in the UE or LE bilat Psych: Good judgement, thought and behavior. Cooperative Results Labs 06/22/24 06:18 06/22/24 06:18 Labs: Short CBC 06/21/24 06/22/24 Range/Units 20:57 06:18 WBC 8.0 6.8 (3.6-11.0) Thou/mm3 Hgb 12.3 11.9 L (12.0-16.0) g/dL Hct 38.3 36.1 (36.0-46.0) % Plt Count 212 204 (140-440) Thou/mm3 BMP 06/21/24 06/22/24 06/22/24 20:57 06:18 09:23 Sodium 138 137 Potassium 3.8 3.3 L D Chloride 99 98 Carbon Dioxide 33.4 H 30.7 BUN 9 9 Creatinine 0.8 0.7 Glucose 94 97 Calcium 6.6 L* 6.9 L 7.1 L Cardiac Enzymes 06/21/24 Range/Units 20:57 Troponin I < 0.020 (0.0-0.045) ng/mL Liver Function 06/21/24 06/22/24 Range/Units 20:57 06:18 Total Bilirubin 0.6 0.7 (0.3-1.2) mg/dL AST 20 16 (0-34) U/L ALT 11 13 (10-49) U/L Alkaline Phosphatase 80 76 (46-116) U/L Albumin 4.3 4.2 (3.5-5.0) gm/dL Urine 06/21/24 Range/Units 20:36 Urine Color Yellow (Lt Yel-Yel) Urine Clarity Clear (Clear/Hazy) Urine pH 6.5 (5.0-7.0) Ur Specific [place] 1.021 (1.001-1.035) Urine Protein Trace (Neg - Trace) Urine Glucose (UA) Negative (Negative) Quality Measures Quality Measures none Medications Home Medications and Allergies Home Medications ?Medication ?Instructions ?Recorded ?Confirmed ?Type olanzapine 2.5 mg tablet (Zyprexa) 5 mg PO QDAY 04/25/18 03/28/19 History venlafaxine 75 mg capsule,extended 75 mg PO QHS 04/25/18 03/28/19 History release 24 hr (Effexor XR) losartan 100 1 tab PO QDAY 04/30/18 03/28/19 History mg-hydrochlorothiazide 25 mg tablet amlodipine 5 mg tablet 5 mg PO DAILY 03/28/19 03/28/19 History buprenorphine 12 mg-naloxone 3 mg 12 mg buccal BID 03/28/19 03/28/19 History sublingual film (Suboxone) levothyroxine 125 mcg tablet 125 mcg PO DAILY 03/28/19 03/28/19 History buprenorphine 8 mg-naloxone 2 mg 1 film buccal 3XD 06/22/24 06/22/24 History sublingual film gabapentin 300 mg capsule 300 mg PO 3XD 06/22/24 06/22/24 History levothyroxine 137 mcg tablet 137 mcg PO 1XD 06/22/24 06/22/24 History Allergies Allergy/AdvReac Type Severity Reaction Status Date / Time No Known Allergies Allergy Verified 06/21/24 19:38 Visit Medications Acetaminophen (Acetaminophen 325 Mg Tablet) 650 mg PO Q6H PRN PRN Reason: Fever >100.3 or pain Stop: 07/22/24 03:44 Last Admin: 06/22/24 12:42 Dose: 650 mg Aspirin (Aspirin Ec 81 Mg Tabec) 81 mg PO QDAY [facility] Stop: 07/22/24 08:59 Last Admin: 06/22/24 08:30 Dose: 81 mg Duloxetine HCl (Duloxetine Hcl 30 Mg Capsule) 60 mg PO QDAY [facility] Stop: 07/22/24 08:59 Last Admin: 06/22/24 08:46 Dose: 60 mg Gabapentin (Gabapentin 300 Mg Capsule) 300 mg PO TID [facility] Stop: 07/22/24 05:59 Last Admin: 06/22/24 05:20 Dose: 300 mg Heparin Sodium (Porcine) (Heparin Sod Inj 5000 Unit/Ml Vial) 5,000 unit SC BID [facility] Stop: 07/06/24 08:59 Last Admin: 06/22/24 08:33 Dose: 5,000 unit Ceftriaxone Sodium/Dextrose (Rocephin/D5w 1gm Iv Premix) 50 mls @ 100 mls/hr IV QDAY [facility] Stop: 06/29/24 10:06 Last Infusion: 06/22/24 12:16 Dose: Infused Levothyroxine Sodium (Levothyroxine Sodium 112 Mcg Tablet) 112 mcg PO [facility] Stop: 07/22/24 05:59 Last Admin: 06/22/24 06:09 Dose: 112 mcg Levothyroxine Sodium (Levothyroxine Sodium 25 Mcg Tablet) 25 mcg PO [facility] Stop: 07/22/24 05:59 Last Admin: 06/22/24 05:20 Dose: 25 mcg Losartan Potassium (Losartan Potassium 25 Mg Tablet) 100 mg PO QDAY [facility] Stop: 07/22/24 08:59 Last Admin: 06/22/24 08:31 Dose: 100 mg Nifedipine (Nifedipine Xl 30 Mg Tabcr) 30 mg PO QDAY [facility] Stop: 07/22/24 13:29 Ondansetron HCl (Ondansetron Inj 2 Mg/Ml Inj 2 Ml) 4 mg IV Q6H PRN; Protocol PRN Reason: NAUSEA OR VOMITING Stop: 07/22/24 03:49 Pantoprazole Sodium (Pantoprazole 40 Mg Tablet) 40 mg PO QDAY [facility] Stop: 07/22/24 08:59 Last Admin: 06/22/24 08:30 Dose: 40 mg Sennosides (Senna Tablet) 1 tab PO QDAY [facility]; Protocol Stop: 07/22/24 08:59 Last Admin: 06/22/24 08:28 Dose: 1 tab Discontinued Medications Calcium Carbonate (Calcium Carbonate 600 Mg Tablet) 600 mg PO X1 ONE Stop: 06/22/24 02:32 Last Admin: 06/22/24 04:03 Dose: 600 mg Calcium Gluconate (Calcium Gluconate 10% Inj 1 Gm/10 Ml Vial) 1 gm IV X1 ONE Stop: 06/22/24 03:57 Last Admin: 06/22/24 05:19 Dose: 1 gm Acetaminophen (Ofirmev Inj) 1,000 mg in 100 mls @ 250 mls/hr IV NOW ONE Stop: 06/22/24 02:52 Last Infusion: 06/22/24 03:30 Dose: Infused Magnesium Sulfate (Magnesium Sulfate Ivpb) 2 gm in 50 mls @ 25 mls/hr IV X1 ONE Stop: 06/22/24 05:56 Last Infusion: 06/22/24 07:14 Dose: Infused Potassium Chloride (Kcl Ivpb) 10 meq in 100 mls @ 100 mls/hr IV Q1H [facility] Stop: 06/22/24 12:29 Last Admin: 06/22/24 12:43 Dose: 100 mls/hr Calcium Chloride 10 ml/ Sodium (Chloride) 110 mls @ 110 mls/hr IV X1 ONE Stop: 06/22/24 09:59 Last Admin: 06/22/24 11:05 Dose: Not Given Calcium Gluconate/Sodium Chloride (Calcium Gluc/Ns 1000mg Ivpb) 1,000 mg in 50 mls @ 50 mls/hr IV X1 ONE Stop: 06/22/24 11:14 Last Infusion: 06/22/24 12:16 Dose: Infused Magnesium Oxide (Magnesium Oxide 400 Mg Tablet) 400 mg PO X1 ONE Stop: 06/22/24 02:33 Last Admin: 06/22/24 02:49 Dose: 400 mg Potassium Chloride (Potassium Chloride 20 Meq Tabcr) 20 meq PO X1 ONE Stop: 06/22/24 04:24 Last Admin: 06/22/24 05:20 Dose: 20 meq Assessment & Plan Plan Assessment Ivis is a 48 y/o female with PMHx of hypothyroidism s/p total thyroidectomy [address] Olivas, HTN, palpitations s/p implantable loop recorder (Done in April 2024), depression, anxiety, obesity, COPD, and substance abuse (Meth) who is currently being admitted for evaluation of chest pain and palpitations. #Chest pain #Symptomatic hypocalcemia #Palpitations At this point, chest pain and palpitations could most likely be attributed due to symptomatic hypocalcemia which has been present in the past She has gotten a loop recorder implanted in her by Dr. Park. Previous cardiac workup including echo and cath have been unremarkable At this point, we will need to further work up her hypocalcemia and address those levels to see if pt improves symptoms scott EKG significant for sinus rhythm, rate 90, RBBB and Q waves in inferior leads. Trop <0.02 Corrected Ca 6.6, Mg 1.8, K 3.8 Pt is not having hypocalcemia at this point due to issues with albumin, pt does not have CKD either so it cannot be secondary either Plan: ? Cardiac diet - Telemetry monitoring - PTH - Follow up Echo - 25 hydroxy vitamin D -Replenish calcium - Keep potassium and mag above 4 and 2 respectively #Essential hypertension Home medication losartan 100 Mg p.o. daily Plan: ? Continue home medication losartan 100 Mg p.o. daily #Elevated BUN Pt's BUN levels went from 52 to 48, Cr went from 1.3 to 1.1 At this point, we need to investigate if pt is having GI bleed (hgb is stable at this time), steroid use, pre or post renal MONALISA, or hypovolemia Plan: Will let primary manage and further workup #Hypothyroidism s/p total thyroidectomy 2018 #Depression #Anxiety #Obesity class III #History of Alcohol dependence #COPD Managed by primary hospitalist team Patient seen and care discussed with my attending physician, Dr. Jakob Mirza, PGY-1 Attending Provider Attestation/Addendum 48-year-old obese female with hypertension, hypothyroidism COPD, is being admitted for evaluation and management of chest pain. She currently has a loop recorder. Chest x-ray showed early right-sided pneumonia, there is also a left lung nodule 12 mm. Patient states she's had [place] fever. She seess manager integration Dr. Park. She's had negative coronary (radial approach) angiogram last December. EKG showed right bundle branch block. Troponin is 0.02. Calcium 6.6.
--- NOTE | 2024-06-22 14:35 | PC.NURSE ---
RECEIVED REPORT FROM ADE IN ER. PATIENT ARRIVED AT 14:05 NO POTASSIUM RUNNING. I WAS ON LUNCH WHEN PATIENT ARRIVED ON FLOOR. WILL CONTINUE POTASSIUM.
[2024-06-22 15:25] LABS: Troponin I < 0.020 ng/mL (0.0-0.045)
[2024-06-22] MEDS: NIFEdipine XL 30 MG TABCR PO (15:45)
--- NOTE | 2024-06-22 15:52 | PC.NURSE ---
Taking patients suboxone to pharmacy one film. Patient took one IN ER this morning at 1am from her purse. I educated patient not to please not self medicate herself from any other medications from her purse.
[2024-06-22 20:41] LABS: Parathyroid Hormone Intact 22.7 pg/ml (18.5-88.0)
[2024-06-23] VITALS (11 sets, daily range): BP systolic 129–167; BP diastolic 82–110; PULSE 60–77; RESP 16–97; TEMP 36.1–36.4; O2SAT 95–99
[2024-06-23] MEDS: LEVOTHYROXINE SODIUM 112 MCG TABLET PO (05:33)
[2024-06-23] MEDS: LEVOTHYROXINE SODIUM 25 MCG TABLET PO (05:33)
[2024-06-23] MEDS: GABAPENTIN 300 MG CAPSULE PO ×2 (05:33→13:46)
[2024-06-23] MEDS: ACETAMINOPHEN 325 MG TABLET 650 MG PO (05:52)
[2024-06-23 06:49] LABS: Basophils % (Auto) 1 % (0-2.5); Eosinophils # (Auto) 0.2 Thou/mm3 (0.0-0.5); Eosinophils % (Auto) 2 % (0-10); Hematocrit 41.7 % (36.0-46.0); Hemoglobin 13.3 g/dL (12.0-16.0); Immature Granulocytes % (Auto) 0 % (0-0); Immature Granulocytes Auto 0.02 Thou/mm3 (0.00-0.00); Lymphocytes # (Auto) 2.4 Thou/mm3 (1.0-4.8); Lymphocytes % (Auto) 33 % (10-50); Mean Corpuscular HGB Conc 31.9 g/dl (31.0-37.0); Mean Corpuscular Hemoglobin 28.6 pg (25.0-35.0); Mean Corpuscular Volume 90 fL (80-100); Monocytes # (Auto) 0.4 Thou/mm3 (0.0-0.8); Monocytes % (Auto) 6 % (0-12); Neutrophils # (Auto) 4.2 Thou/mm3 (1.8-7.7); Neutrophils % (Auto) 58 % (37-80); Nucleated Red Blood Cell % 0 /100 WBC (0); Platelet Count 220 Thou/mm3 (140-440); RDW Standard Deviation 46.1 fL (36.4-46.3); Red Blood Count 4.65 Miln/mm3 (4.00-5.20); White Blood Count 7.3 Thou/mm3 (3.6-11.0)
[2024-06-23 07:09] LABS: Alanine Aminotransferase 11 U/L (10-49); Albumin, Serum 4.2 gm/dL (3.5-5.0); Albumin/Globulin Ratio 1.4 (1.2-2.2); Alkaline Phosphatase 80 U/L (46-116); Anion Gap 6 (7-16); Aspartate Amino Transferase 15 U/L (0-34); BUN/Creatinine Ratio 13 Ratio (12-20); Bilirubin,Total 0.7 mg/dL (0.3-1.2); Blood Urea Nitrogen 10 mg/dL (9-23); Calcium 7.2 mg/dL (8.3-10.6); Calcium (Corrected) 7.2 mg/dL (8.5-10.1); Carbon Dioxide 32.6 mMol/L (20.0-31.0); Chloride 102 mMol/L (98-107); Creatinine (Component) 0.8 mg/dL (0.6-1.3); Estimated Creatinine Clearance 104.7 mL/min (>60); Glucose 92 mg/dL (74-106); Osmolality,Calculated 280 (275-295); Phosphorous 4.8 mg/dL (2.4-5.1); Potassium 4.6 mMol/L (3.4-5.1); Sodium 141 mMol/L (136-145); Total Protein 7.2 gm/dL (5.7-8.2); eGFR > 60 See Note
[2024-06-23] MEDS: BUPRENORPHINE SL (07:42)
[2024-06-23] MEDS: NALOXONE SL (07:42)
[2024-06-23] MEDS: LOSARTAN POTASSIUM 25 MG TABLET 100 MG PO (08:35)
[2024-06-23] MEDS: SENNA TABLET 1 TAB PO (08:35)
[2024-06-23] MEDS: PANTOPRAZOLE 40 MG TABLET PO (08:36)
[2024-06-23] MEDS: ASPIRIN EC 81 MG TABEC PO (08:36)
[2024-06-23] MEDS: DULoxetine HCL 30 MG CAPSULE 60 MG PO (08:36)
[2024-06-23] MEDS: HEPARIN SOD INJ 5000 UNIT/ML VIAL SC (08:38)
[2024-06-23] MEDS: cefTRIAXone/D5w 1gm IV premix 50 ML IV (08:40)
[2024-06-23] MEDS: NIFEdipine XL 30 MG TABCR PO (08:48)
[2024-06-23 09:05] LABS: Glucose Estimated Average 117 mg/dL (80-131); Hemoglobin A1C 5.7 % Hgb (4.8-6.0)
[2024-06-23] MEDS: METOPROLOL SUCCINATE XL 25 MG TABCR PO (09:20)
[2024-06-23 11:07] LABS: Vitamin D 25 Hydroxy Total 23.1 ng/mL (7.3-40.2)
--- NOTE | 2024-06-23 11:13 | ESPR_ITS ---
<Statement entered by Asher Robert MD - 06/23/24 21:19> I have personally seen and examined the patient separately on the above date of service and discussed the plan of care with the resident. I reviewed the resident Dr. Sharma consultation progress note and agree with the resident findings and plan in the note above and have also edited the documentation to reflect my findings and plan. Patient seen and examined at the bedside. Patient doing much better and denies any chest pain or chest pressure. Echocardiogram showed an EF of 55 to 60% with no major regional wall motion abnormalities but the PACs would not be seen well but appears to be marky. Recommended to follow-up with primary yard switcher and get an echo with Def[facility] which is not available at this institution. She did have possible Takotsubo previously which probably has improved at this point of time. Patient troponins were negative on admission and now denies any complaints. Reviewed cardiac catheterization. [facility] and did show that patient had mild LAD bridging and hence recommended to start the patient on beta-shira and continue amlodipine. Patient should be on both beta-shira as well as calcium channel shira based on the blood pressure measurements. Otherwise patient recommended to continue rest of her medications as indicated. Calcium still continues to be low and patient's PTH and vitamin D level are normal. Patient still continues to have occasional palpitations and recommend to follow-up with her primary yard switcher for the Holter monitoring results as the primary team is discharging the patient today and telemetry here is uneventful. Management of rest of the medical conditions as per primary team and other consultants. Thank you for the consult and allowing me to participate in the care of the patient. Cardiology will continue to follow. Asher Robert M.D. Interventional Cardiology Documentation for date of: 06/23/24 Subjective Subjective Interval history: Patient examined at bedside today. No significant events on telemetry overnight was maintaining heart rates in the 70s. Patient examined at bedside today. Reports that she is experiencing no chest pain or palpitations this time she does not feel short of breath. She says she slept great. She does not use a CPAP overnight. Does not have sleep apnea. She is wondering when she can go home. Patient informed that her calcium levels are still low and needs to be further monitored for that. Also said that she has had low calcium before. No other complaints at this time Exam Vital Signs Temp Pulse Resp BP Pulse Ox O2 Del Method 96.9 F 60 16 160/105 H 98 Room Air 06/23/24 08:00 06/23/24 09:20 06/23/24 08:16 06/23/24 09:20 06/23/24 08:00 06/23/24 08:00 Narrative Exam General: AAOx3, NAD, morbidly obese female lying down HEENT: Moist mucous membranes, conjunctiva clear, EOMI, PERRLA, does have some facial twitching Cardiovascular: S1, S2, radial pulses +2 bilat, RRR Pulmonary: CTAB bilat no cough, no wheezing GI: No tenderness to light or deep palpitation, no guarding, rigidity, rebound tenderness or distension Extremities: No presence of trace or pitting edema in lower extremities bilaterally, dorsalis pedis pulses +2 bilaterally Neuro: AAOx3, no focal motor or sensory deficits in the UE or LE bilat Psych: Good judgement, thought and behavior. Cooperative Objective Labs 06/23/24 05:47 06/23/24 05:47 Labs: Laboratory Results - last 24 hr 06/22/24 06/22/24 06/23/24 06:18 14:54 05:47 WBC 7.3 RBC 4.65 Hgb 13.3 Hct 41.7 MCV 90 MCH 28.6 MCHC 31.9 RDW Std Deviation 46.1 Plt Count 220 Neut % (Auto) 58 Lymph % (Auto) 33 [place] % (Auto) 6 Eos % (Auto) 2 Baso % (Auto) 1 Neut # (Auto) 4.2 Lymph # (Auto) 2.4 [place] # (Auto) 0.4 Eos # (Auto) 0.2 Baso # (Auto) 0.0 Immature Gran # (Auto) 0.02 H Absolute Nucleated RBC 0.00 Immature Gran % 0 Nucleated RBC % 0 Sodium 141 Potassium 4.6 D Chloride 102 Carbon Dioxide 32.6 H Anion Gap 6 L BUN 10 Creatinine 0.8 Estim Creat Clear Calc 104.7 eGFR > 60 BUN/Creatinine Ratio [address] Glu mg/dL 117 Hemoglobin A1c 5.7 Calculated Osmolality 280 Calcium 7.2 L Corrected Calcium 7.2 L Phosphorus 4.8 Magnesium 2.0 Total Bilirubin 0.7 AST 15 ALT 11 Alkaline Phosphatase 80 Troponin I < 0.020 Total Protein 7.2 Albumin 4.2 Globulin 3.0 Albumin/Globulin Ratio 1.4 25-OH Vitamin D Total 23.1 PTH Intact 22.7 Quality Measures Quality Measures none Assessment & Plan Assessment Current Active Medications: Generic Name Dose Route Start Last Admin Trade Name Freq PRN Reason Stop Dose Admin Acetaminophen 650 mg 06/22/24 03:45 06/23/24 05:52 Acetaminophen 325 Mg Tablet PO 07/22/24 03:44 650 mg Q6H PRN Administration Fever >100.3 or pain Aspirin 81 mg 06/22/24 09:00 06/23/24 08:36 Aspirin Ec 81 Mg Tabec PO 07/22/24 08:59 81 mg QDAY MASSIMO Administration Carvedilol 6.25 mg 06/23/24 12:00 Carvedilol 3.125 Mg Tablet PO 07/23/24 11:59 BIDWM MASSIMO Buprenorphine/ 0 ea 06/23/24 07:00 06/23/24 07:42 Naloxone 8mg/2mg SL 07/23/24 06:59 1 film Sublingual Film BID@[id number],1900 MASSIMO Administration Protocol Duloxetine HCl 60 mg 06/22/24 09:00 06/23/24 08:36 Duloxetine Hcl 30 Mg Capsule PO 07/22/24 08:59 60 mg QDAY MASSIMO Administration Gabapentin 300 mg 06/22/24 06:00 06/23/24 05:33 Gabapentin 300 Mg Capsule PO 07/22/24 05:59 300 mg TID MASSIMO Administration Heparin Sodium (Porcine) 5,000 unit 06/22/24 09:00 06/23/24 08:38 Heparin Sod Inj 5000 Unit/Ml Vial SC 07/06/24 08:59 5,000 unit BID MASSIMO Administration Ceftriaxone Sodium/Dextrose 50 mls @ 100 mls/hr 06/22/24 10:07 06/23/24 08:40 Rocephin/D5w 1gm Iv Premix IV 06/29/24 10:06 100 mls/hr QDAY MASSIMO Administration Calcium Gluconate/Sodium Chloride 1,000 mg in 50 mls @ 50 mls/hr 06/23/24 10:52 Calcium Gluc/Ns 1000mg Ivpb IV 06/23/24 11:51 X1 ONE Levothyroxine Sodium 112 mcg 06/22/24 06:00 06/23/24 05:33 Levothyroxine Sodium 112 Mcg Tablet PO 07/22/24 05:59 112 mcg ACBR MASSIMO Administration Levothyroxine Sodium 25 mcg 06/22/24 06:00 06/23/24 05:33 Levothyroxine Sodium 25 Mcg Tablet PO 07/22/24 05:59 25 mcg ACBR MASSIMO Administration Losartan Potassium 100 mg 06/22/24 09:00 06/23/24 08:35 Losartan Potassium 25 Mg Tablet PO 07/22/24 08:59 100 mg QDAY MASSIMO Administration Nifedipine 30 mg 06/22/24 13:30 06/23/24 08:48 Nifedipine Xl 30 Mg Tabcr PO 07/22/24 13:29 30 mg QDAY MASSIMO Administration Ondansetron HCl 4 mg 06/22/24 03:50 Ondansetron Inj 2 Mg/Ml Inj 2 Ml IV 07/22/24 03:49 Q6H PRN NAUSEA OR VOMITING Protocol Pantoprazole Sodium 40 mg 06/22/24 09:00 06/23/24 08:36 Pantoprazole 40 Mg Tablet PO 07/22/24 08:59 40 mg QDAY MASSIMO Administration Sennosides 1 tab 06/22/24 09:00 06/23/24 08:35 Senna Tablet PO 07/22/24 08:59 1 tab QDAY MASSIMO Administration Protocol Plan Assessment Ivis is a 48 y/o female with PMHx of hypothyroidism s/p total thyroidectomy [address] Olivas, HTN, palpitations s/p implantable loop recorder (Done in April 2024), depression, anxiety, obesity, COPD, and substance abuse (Meth) who is currently being admitted for evaluation of chest pain and palpitations. #Chest pain #Symptomatic hypocalcemia #Palpitations #? Hx of Takotsubo syndrome #Hx of HFrEF At this point, chest pain and palpitations could most likely be attributed due to symptomatic hypocalcemia which has been present in the past She has gotten a loop recorder implanted in her by Dr. Park. Previous cardiac workup including echo and cath have been unremarkable At this point, we will need to further work up her hypocalcemia and address those levels to see if pt improves symptoms scott EKG significant for sinus rhythm, rate 90, RBBB and Q waves in inferior leads. Trop <0.02 Corrected Ca 6.6, Mg 1.8, K 3.8 Pt is not having hypocalcemia at this point due to issues with albumin, pt does not have CKD either so it cannot be secondary either Some records from [facility] were reviewed and patient could have possibly experience Takotsubo, echo was reviewed and showed some mild systolic congestive heart failure with EF of 45 and left heart cath did not show overt CAD PTH and Vitamin D Normal Will need to see if there was a decline in her heart function, pt will also need to follow up with her yard switcher, Dr. Park and her loop recorder results Also need to further workup for hypocalcemia as PTH and Vit D normal Plan: ? Cardiac diet - Telemetry monitoring - Follow up Echo read - Replenish calcium ?Follow-up urinary calcium - Keep potassium and mag above 4 and 2 respectively #Essential hypertension Home medication losartan 100 Mg p.o. daily Plan: ?Continue home medication losartan 100 Mg p.o. dailyyyy ?Coreg 6.25 BID and nifedipine 30 mg qday started by primary team #Hypothyroidism s/p total thyroidectomy 2018 #Depression #Anxiety #Obesity class III #History of Alcohol dependence #COPD Managed by primary hospitalist team Patient seen and care discussed with my attending physician, Dr. Jakob Mirza, PGY-1
[2024-06-23] MEDS: IBUPROFEN TAB 400 MG TABLET PO (11:25)
[2024-06-23] MEDS: carVEDILOL 3.125 MG TABLET 6.25 MG PO (12:11)
[2024-06-23] MEDS: CALCIUM GLUC/NS 1000MG IVPB 1,000 MG/50 ML BAG 50 MG IV (12:12)
--- NOTE | 2024-06-23 12:35 | PD.RESDS ---
Planned Discharge Date 06/23/24 DS: Providers Provider Date of admission: 06/22/24 03:45 Primary care physician: Yulissa Carrington PA-C Admitting Provider: Yfn Mccullough MD Attending Provider on Admission: Lam Storey MD Consults: 06/22/24 10:28 Consult to Cardiology Stat Comment: Consulting Provider: Asher Robert Attending Provider on DC: Lam Storey MD Discharging Provider: Nitesh Portillo MD Anticipated date of discharge: 06/23/24 DS: Diagnosis Problem List Completed Was Problem List Reviewed/Reconciled?: Yes Hospital Course Hospital Course Hospital course: 48 year old female with a past medical history significant for essential hypertension, palpitations with implantable loop recorder, depression, anxiety, hypothyroidism s/p total thyroidectomy 2019, obesity, COPD who presented to the ED due to right-sided nonspecific chest pain. Patient will be admitted to observation for nonspecific chest pain and symptomatic hypocalcemia. During hospital stay patient was calcium levels were repleted, labs were ordered including PTH vitamin D all which were within normal limits. She had evidence of community-acquired pneumonia which was treated with IV antibiotics namely ceftriaxone. Patient on admission had very high blood pressure likely hypertensive urgency which was managed with losartan 100 mg and nifedipine 30 mg daily and was also started on Coreg 6.25 mg twice daily. Cardiology was consulted and recommendations were given and was evaluated with echocardiogram. For anxiety depression patient's home gabapentin and Cymbalta were resumed as taken at home. Hypothyroidism was managed with resuming patient's levothyroxine. Patient history of alcohol dependence and is currently undergoing Suboxone therapy which was resumed as taken. Patient has history of COPD DuoNebs were prescribed as needed. At this time patient is medically stable for discharge. Recommended to follow up with primary care provider within 1 week of discharge. Recommend to follow up with Cardiology within 2 weeks of discharge. Follow-up with endocrinology for follow up on calcium levels, you may need a referral from your primary doctor for Motorized Squad Captain appointment. Will discharge patient with calcium and vitamin D supplements. Please return to emergency room, if symptoms worsen. Problem list: #Chest pain, unspecified #Symptomatic hypocalcemia #? Hx of Takotsubo syndrome #Hx of HFrEF #Palpitations #Community-acquired pneumonia # Hypertensive urgency-resolved #Hypothyroidism s/p total thyroidectomy 2018 #Symptomatic hypocalcemia # Depression #Anxiety #Former smoker #Obesity class III #History of Alcohol dependence #COPD Case discussed with my attending Dr. Raleigh Portillo MD PGY-1 Status at Discharge Functional status at discharge: independent ambulation Overall status at discharge: patient is back to baseline Time Spent with Patient Time attestation: Total time spent providing and/or coordinating discharge services: Time spent: Greater than 30 minutes Exam Vital Signs Temp Pulse Resp BP Pulse Ox O2 Del Method 96.9 F 76 16 150/110 H 98 Room Air 06/23/24 08:00 06/23/24 12:11 06/23/24 08:16 06/23/24 12:11 06/23/24 08:00 06/23/24 08:00 Narrative Exam Physical Exam GENERAL: NAD, AAOx3, obese HEENT: Moist mucosa. Eyes open, symmetrical, & clear CARDIO: Heart RRR, no obvious murmurs PULM: No noted coughing/[id number]-[id number]-[id number] wheezing GI: Abdomen soft, nondistended, no pain on palpation. BSx4 SKIN/MSK/EXT: No wounds/rashes/edema/amputations, no pain on palpation. Pedal pulses present B/L, paresthesias in left upper, bilateral lower extremities NEURO: AAOx3, no focal neuro deficits, able to move all 4 extremities Discharge Plan Plan Patient Disposition: HOME (Self Care) Care Plan Goals: Recommended to follow up with primary care provider within 1 week of discharge. Recommend to follow up with Cardiology within 2 weeks of discharge . Followup with endocrinology for follow up on calcium levels, you may need a referral from your primary doctor for Motorized Squad Captain appointment, Will discharge patient with calcium and vitamin D supplements. Please return to emergency room, if symptoms worsen. Prescriptions/Referrals Prescriptions/Med Rec: New losartan 50 mg tablet 50 mg PO BID 30 Days Qty: 60 0RF nifedipine 30 mg Tablet Extended Release 24hr 30 mg PO QDAY 30 Days Qty: 30 0RF metoprolol succinate 25 mg Tablet Extended Release 24 Hr 25 mg PO QDAY 30 Days Qty: 30 0RF cholecalciferol (vitamin D3) 250 mcg (10,000 unit) capsule 250 mcg PO QWEEK Qty: 10 0RF amoxicillin 500 mg capsule 500 mg PO TID Qty: 14 0RF Continued levothyroxine 137 mcg tablet 137 mcg PO 1XD Patient Comments: TAKE ONE TABLET BY MOUTH ONCE DAILY BEFORE BREAKFAST gabapentin 300 mg capsule 300 mg PO 3XD buprenorphine-naloxone 8-2 mg film 1 film BUCCAL 3XD Patient Comments: COMPLETELY DISSOLVE 1 FILM UNDER THE TONGUE THREE TIMES A DAY FOR 4 TO 8 MINUTES aspirin 81 mg Tablet 81 mg PO QDAY duloxetine 60 mg capsule,delayed release(DR/EC) 60 mg PO DAILY magnesium oxide 400 mg (241.3 mg magnesium) tablet 400 mg PO BID Rx Instructions: last dose a wek ago before admission. calcium carbonate 500 mg calcium (1,250 mg) tablet 500 mg PO DAILY Patient Comments: TAKE ONE TABLET BY MOUTH EVERY DAY WITH FOOD Rx Instructions: last dose a month ago before admission. ramelteon 8 mg tablet 8 mg PO HS PRN (Reason: Sleep) Referrals: Yulissa Carrington PA-C [Primary Care Provider] - Patient/Caregiver Discharge Instructions Education Materials: Discharge Instructions for ..., ED Chest Pain, Uncertain Cause Print Language: Colombian Stand Alone Forms: Evelia Award Info., Patient Portal Info Letter, Work/Release Restrictions Discharge Order Discharge Orders: Discharge (Routine); Ordered 06/23/24 Ordered By: Nitesh Portillo Quality Discharge Quality Measures VTE prophylaxis Attestestation Attestation I reviewed labs, imaging, EKG, home medications and prior available records. Face to face evaluation was performed by me. I have personally examined the patient and discussed assessment and plan with the IM team. I reviewed the resident note and agree with the plan with exceptions as below. Atypical chest pain Uncontrolled hypertension Right middle lobe pneumonia Hypocalcemia, symptomatic Her chest pain is likely due to uncontrolled hypertension versus pneumonia. Unlikely ACS. Will discharge on p.o. amoxicillin Continue Coreg, losartan, and nifedipine. Monitor BP as outpatient Follow-up echocardiogram as outpatient Workup of her hypocalcemia is nondiagnostic so far. Continue outpatient follow-up with endocrinology. Calcium was repleted as inpatient Time spent is 40 minutes. More than 50% of the time was spent on patient education and coordination of care.
[2024-06-23 14:47] LABS: Calcium, Random Urine < 1 mg/dL (2-18)
== END 2024-06-23 14:45 | disposition home or self-care (01) ==
LOC: SERX 06-22 02:32 → SERHOLD 06-22 07:23 → S3NX 06-22 16:46 → SERHOLD 06-23 08:18 → S3NX 06-23 08:19
PROVIDERS: Student in an Organized Health Care Education/Training Program; Admitting Provider Internal Medicine; Emergency Provider Emergency Medicine; PCP Physician Assistant; Visit Provider Student in an Organized Health Care Education/Training Program
DX: R07.89 Other chest pain (principal); E66.813 Obesity, class 3; E83.51 Hypocalcemia; E83.52 Hypercalcemia; E87.6 Hypokalemia; E89.0 Postprocedural hypothyroidism; F10.20 Alcohol dependence, uncomplicated; F32.A Depression, unspecified; F41.9 Anxiety disorder, unspecified; I16.0 Hypertensive urgency; I42.9 Cardiomyopathy, unspecified; I45.10 Unspecified right bundle-branch block; I50.22 Chronic systolic (congestive) heart failure; J18.9 Pneumonia, unspecified organism; I11.0 Hypertensive heart disease with heart failure; M41.9 Scoliosis, unspecified; Z68.42 Body mass index [BMI] 45.0-49.9, adult; Z01.810 Encounter for preprocedural cardiovascular examination
CPT/HCPCS: 93314; 36415; 71046; 80053; 80061; 80307; 81001; 82306; 82310; 82340; 83036; 83735; 83880; 83970; 84100; 84439; 84443; 84484; 85025; 85610; 85730; 87400; 87811; 93005; 93306; 96365; 96366; 96372; 99285; G0378; J0131; J0612; J0613; J0696; J1643; J3475; J3480; A9270

== ENCOUNTER 2024-08-25 12:23 | Emergency (ER) | payer MEDICAID, SELFPAY ==
[2024-08-25 13:24] VITALS: BP 134/90; PULSE 47; RESP 18; TEMP 36.9; O2SAT 97; BMI 42.9
--- NOTE | 2024-08-25 13:26 | EKG_ITS ---
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: : 1975 Requested By: Marleen Monreal Order Number: [id number] Reading MD: Marleen Monreal Measurements Intervals [place] Rate: 49 P: 27 NC: 186 QRS: 50 QRSD: 154 T: -3 QT: 542 QTc: 493 Interpretive Statements SINUS BRADYCARDIA INDETERMINATE AXIS RIGHT BUNDLE BRANCH BLOCK [120+ ms QRS DURATION, UPRIGHT V1, 40+ ms S IN I/aVL/V4/V5/V6] POSSIBLE ANTERIOR MYOCARDIAL INFARCTION , OF INDETERMINATE AGE [30 ms Q WAVE IN V3/V4, OR R < 0.2 mV IN V4] Compared to ECG 06/21/2024 20:15:22 Myocardial infarct finding now present Sinus rhythm no longer present T-wave abnormality no longer present Possible ischemia no longer present /store/S0/[id number].pdf
--- NOTE | 2024-08-25 13:26 | XR_ITS ---
Examination: PA lateral chest 2 views Technique: Upright PA lateral chest 2 views Exam date and time: August 25, 2024 1300 hrs. Indications: Chest pain today. Findings: Prominent pulmonary nodule left upper lobe again noted Mild heart failure Mild enlargement cardiac contour with prominent vascular congestion Impression: Mild heart failure
--- NOTE | 2024-08-25 13:27 | XR_ITS ---
Examination: CT brain head without contrast. 2-D sagittal coronal reconstructions Date and time of exam:August 25, 2024 1359 hrs. Indications: Headache generalized body weakness today CTDI: vol (mGy):54.3 DLP: (mGycm):1111 Technique: Multiple CT axial sections of the brain have been obtained, 5 mm slice thickness. Contrast has not been administered. 2-D sagittal, coronal reconstructions have been obtained Low dose protocols were performed. One or more of the following dose reduction techniques were used; automated exposure control, adjustment of the mA and/or KV according to patient size, use of iterative reconstruction technique. Findings: No significant ventricular enlargement. Intra-axial or extra-axial hemorrhage density is not seen. No mass effect or midline shift Basal cisterns are not remarkable. Fourth ventricle is midline. Cranial vault intact. Significant sphenoid sinusitis Impression: Negative for acute hemorrhage, mass effect or midline shift Advise clinical correlation and follow-up accordingly
--- NOTE | 2024-08-25 13:28 | PD.EDRME ---
Rapid Medical Screening Exam RME Arrival date/time: 08/25/24 12:23 This is a 48-year-old female that comes in with complaints of fatigue, brain fog, chest pain. Patient states that she has been having the symptoms for the past few months. Patient is being worked up by primary provider. Patient was told recently that her calcium is low and she has been sent to an project management professional for this problem. The reason patient came today was because her symptoms were getting worse per patient. Patient has a history of having a loop recorder because of history of bradycardia. Patient reports history of stress-induced cardiomyopathy. Patient also has a history of high blood pressure, depression, cholecystectomy, thyroid removal, tubal ligation and ablation. I have greeted and performed a focused initial assessment of this patient. Initial appropriate labs ordered at this time. A comprehensive ED assessment and evaluation of the patient and analysis of all test and completion of medical decision making process will be conducted by additional ED provider. Chief Complaint: General Adult/Misc Complain Time Seen by Provider: 08/25/24 12:52 Vital signs: Vital Signs Temperature 98.4 F 08/25/24 13:24 Pulse Rate 47 L 08/25/24 13:24 Respiratory Rate 18 08/25/24 13:24 Blood Pressure 134/90 H 08/25/24 13:24 Pulse Oximetry (%) 97 08/25/24 13:24 Oxygen Delivery Method Room Air 08/25/24 13:24
[2024-08-25 13:51] LABS: Basophils # (Auto) 0.1 Thou/mm3 (0.0-0.2); Basophils % (Auto) 1 % (0-2.5); Eosinophils # (Auto) 0.2 Thou/mm3 (0.0-0.5); Eosinophils % (Auto) 4 % (0-10); Hemoglobin 12.1 g/dL (12.0-16.0); Immature Granulocytes % (Auto) 0 % (0-0); Immature Granulocytes Auto 0.02 Thou/mm3 (0.00-0.00); Lymphocytes # (Auto) 1.6 Thou/mm3 (1.0-4.8); Lymphocytes % (Auto) 30 % (10-50); Mean Corpuscular HGB Conc 31.8 g/dl (31.0-37.0); Mean Corpuscular Hemoglobin 30.3 pg (25.0-35.0); Mean Corpuscular Volume 95 fL (80-100); Monocytes # (Auto) 0.3 Thou/mm3 (0.0-0.8); Monocytes % (Auto) 6 % (0-12); Neutrophils # (Auto) 3.2 Thou/mm3 (1.8-7.7); Neutrophils % (Auto) 59 % (37-80); Nucleated Red Blood Cell % 0 /100 WBC (0); Platelet Count 207 Thou/mm3 (140-440); RDW Standard Deviation 47.2 fL (36.4-46.3); White Blood Count 5.5 Thou/mm3 (3.6-11.0)
[2024-08-25 14:02] LABS: Collection Type, Urine Voided
[2024-08-25 14:04] LABS: B-Type Natriuretic Peptide 78 pg/mL (0-100)
[2024-08-25 14:06] LABS: Alanine Aminotransferase 68 U/L (10-49); Albumin/Globulin Ratio 1.5 (1.2-2.2); Alkaline Phosphatase 87 U/L (46-116); Anion Gap 6 (7-16); Aspartate Amino Transferase 41 U/L (0-34); BUN/Creatinine Ratio 11 Ratio (12-20); Bilirubin,Total 0.4 mg/dL (0.3-1.2); Blood Urea Nitrogen 10 mg/dL (9-23); Chloride 103 mMol/L (98-107); Creatinine (Component) 0.9 mg/dL (0.6-1.3); Estimated Creatinine Clearance 92.3 mL/min (>60); Globulin 2.6 gm/dL (2.3-3.5); Glucose 137 mg/dL (74-106); Osmolality,Calculated 280 (275-295); Potassium 4.2 mMol/L (3.4-5.1); Sodium 140 mMol/L (136-145); Total Protein 6.6 gm/dL (5.7-8.2); Troponin I < 0.002 ng/mL (0.0-0.045); eGFR > 60 See Note
[2024-08-25 14:11] LABS: Calcium 6.8 mg/dL (8.3-10.6); Calcium (Corrected) 6.8 mg/dL (8.5-10.1)
[2024-08-25 14:19] LABS: Amorphous Crystals,Urine Present (Absent); Bilirubin,Urine Negative (Negative); Blood,Urine Negative (Negative); Clarity,Urine Clear (Clear/Hazy); Color,Urine Yellow (Lt Yel-Yel); Culture Indicated,Urine Not Indicated; Glucose, Urine Negative (Negative); Ketones,Urine Negative (Negative); Leukocyte Esterase,Urine Negative (Negative); Nitrite,Urine Negative (Negative); PH,Urine 6.5 (5.0-7.0); Protein,Urine Trace (Neg - Trace); RBC,Urine 2 /hpf (0-3); Specific Gravity,Urine 1.028 (1.001-1.035); Squamous Epithelial Cell,Urine 1 /hpf (0-5); WBC,Urine 2 /hpf (0-5)
[2024-08-25 14:46] LABS: Amphetamine/Methamp Scrn,U Negative (Negative); Barbiturate Screen,Urine Negative (Negative); Benzodiazepines Screen,Urine Negative (Negative); Benzoylecgonine Screen, Ur Negative (Negative); Fentanyl Screen,Urine Negative (Negative); Opiate Screen,Urine Negative (Negative); THC Screen,Urine Positive (Negative)
--- NOTE | 2024-08-25 15:46 | PD.EDADULT ---
ED General RME/HPI General Chief complaint: General Adult/Misc Complain Stated complaint: LOW CA++-BRAIN FOG/MUSC CRAMPS/FATIGUE 3-4 DAYS Time Seen by Provider: 08/25/24 12:52 Arrival date/time: 08/25/24 12:23 RME / HPI RME / HPI narrative: 08/25/24 12:23 This is a 48-year-old female that comes in with complaints of fatigue, brain fog, chest pain. Patient states that she has been having the symptoms for the past few months. Patient is being worked up by primary provider. Patient was told recently that her calcium is low and she has been sent to an bass viol repairer for this problem. The reason patient came today was because her symptoms were getting worse per patient. Patient has a history of having a loop recorder because of history of bradycardia. Patient reports history of stress-induced cardiomyopathy. Patient also has a history of high blood pressure, depression, cholecystectomy, thyroid removal, tubal ligation and ablation. I have greeted and performed a focused initial assessment of this patient. Initial appropriate labs ordered at this time. A comprehensive ED assessment and evaluation of the patient and analysis of all test and completion of medical decision making process will be conducted by additional ED provider. DR. REY MAIN ED EVALUATION: Related Data Home Medications ?Medication ?Instructions ?Recorded ?Confirmed buprenorphine 8 mg-naloxone 2 mg 1 film buccal 3XD 06/22/24 06/22/24 sublingual film gabapentin 300 mg capsule 300 mg PO 3XD 06/22/24 06/22/24 levothyroxine 137 mcg tablet 137 mcg PO 1XD 06/22/24 06/22/24 aspirin 81 mg tablet 81 mg PO QDAY 06/23/24 06/23/24 calcium carbonate 500 mg PO DAILY 06/23/24 06/23/24 duloxetine 60 mg capsule,delayed 60 mg PO DAILY 06/23/24 06/23/24 release magnesium oxide 400 mg (241.3 mg 400 mg PO BID 06/23/24 06/23/24 magnesium) tablet ramelteon 8 mg tablet 8 mg PO HS PRN Sleep 06/23/24 06/23/24 Previous Rx's ?Medication ?Instructions ?Recorded cholecalciferol (vitamin D3) 250 250 mcg PO QWEEK #10 caps 06/23/24 mcg (10,000 unit) capsule amoxicillin 500 mg capsule 500 mg PO TID Pneumonia #14 caps 06/24/24 Allergies Allergy/AdvReac Type Severity Reaction Status Date / Time No Known Allergies Allergy Verified 08/25/24 12:27 Course Orders Category Date Time Status EKG (ED ONLY) *Do not use* NOW Care 08/25/24 13:[address] head/brain wo con Stat Exams 08/25/24 13:27 Completed EKG (ED Only) Stat Exams 08/25/24 13:26 Draft XR chest 2V Stat Exams 08/25/24 13:26 Completed BNP [B-Type Natriuretic Peptide] Stat Lab 08/25/24 13:40 Completed CBC Stat Lab 08/25/24 13:40 Completed Comprehensive Metabolic Panel Stat Lab 08/25/24 13:40 Results Drug Screen,Urine Stat Lab 08/25/24 13:45 Completed Magnesium Stat Lab 08/25/24 13:40 Results PT [Prothrombin Time with INR] Stat Lab 08/25/24 13:40 Completed Phosphorous Stat Lab 08/25/24 13:40 Results Troponin I Stat Lab 08/25/24 13:40 Results Urinalysis, C/S if Indicated Stat Lab 08/25/24 13:45 Completed Calcium Gluc/Ns 1000MG Ivpb [Calcium Gluc/Ns 1000mg Med 08/25/24 15:26 Active Ivpb] 1,000 mg in 50 ml IV X1 Vital Signs Vital signs: Vital Signs Temperature 98.4 F 08/25/24 13:24 Pulse Rate 47 L 08/25/24 13:24 Respiratory Rate 18 08/25/24 13:24 Blood Pressure 134/90 H 08/25/24 13:24 Pulse Oximetry (%) 97 08/25/24 13:24 Oxygen Delivery Method Room Air 08/25/24 13:24 MDM Medications Medication administrations:: Medication Administration History Calcium Gluconate/Sodium Chloride (Calcium Gluc/Ns 1000mg Ivpb) 1,000 mg in 50 mls @ 50 mls/hr IV X1 ONE Stop: 08/25/24 16:25 Medical Decision Making MDM Narrative MDM Narrative: ICamille am scribing for and in the presence of Dr. Rey. Lab Data 08/25/24 13:40 08/25/24 13:40 Labs: Lab Results 08/25/24 08/25/24 Range/Units 13:40 13:45 WBC 5.5 (3.6-11.0) Thou/mm3 RBC 4.00 (4.00-5.20) Miln/mm3 Hgb 12.1 (12.0-16.0) g/dL Hct 38.0 (36.0-46.0) % MCV 95 (80-100) fL MCH 30.3 (25.0-35.0) pg MCHC 31.8 (31.0-37.0) g/dl RDW Std Deviation 47.2 H (36.4-46.3) fL Plt Count 207 (140-440) Thou/mm3 Neut % (Auto) 59 (37-80) % Lymph % (Auto) 30 (10-50) % [place] % (Auto) 6 (0-12) % Eos % (Auto) 4 (0-10) % Baso % (Auto) 1 (0-2.5) % Neut # (Auto) 3.2 (1.8-7.7) Thou/mm3 Lymph # (Auto) 1.6 (1.0-4.8) Thou/mm3 [place] # (Auto) 0.3 (0.0-0.8) Thou/mm3 Eos # (Auto) 0.2 (0.0-0.5) Thou/mm3 Baso # (Auto) 0.1 (0.0-0.2) Thou/mm3 Immature Gran # (Auto) 0.02 H (0.00-0.00) Thou/mm3 Absolute Nucleated RBC 0.00 (0.00-0.00) Thou/mm3 Immature Gran % 0 (0-0) % Nucleated RBC % 0 (0) /100 WBC PT 11.0 (9.0-12.2) Seconds INR 1.0 (0.9-1.3) Sodium 140 (136-145) mMol/L Potassium 4.2 (3.4-5.1) mMol/L Chloride 103 (98-107) mMol/L Carbon Dioxide 31.0 (20.0-31.0) mMol/L Anion Gap 6 L (7-16) BUN 10 (9-23) mg/dL Creatinine 0.9 (0.6-1.3) mg/dL Estim Creat Clear Calc 92.3 (>60) mL/min eGFR > 60 (60 - ) See Note BUN/Creatinine Ratio 11 L (12-20) Ratio Glucose 137 H (74-106) mg/dL Calculated Osmolality 280 (275-295) Calcium 6.8 L* (8.3-10.6) mg/dL Corrected Calcium 6.8 L* (8.5-10.1) mg/dL Total Bilirubin 0.4 (0.3-1.2) mg/dL AST 41 H (0-34) U/L ALT 68 H (10-49) U/L Alkaline Phosphatase 87 (46-116) U/L Troponin I < 0.002 (0.0-0.045) ng/mL B-Natriuretic Peptide 78 (0-100) pg/mL Total Protein 6.6 (5.7-8.2) gm/dL Albumin 4.0 (3.5-5.0) gm/dL Globulin 2.6 (2.3-3.5) gm/dL Albumin/Globulin Ratio 1.5 (1.2-2.2) Ur Collection Type Voided Urine Color Yellow (Lt Yel-Yel) Urine Clarity Clear (Clear/Hazy) Urine pH 6.5 (5.0-7.0) Ur Specific [place] 1.028 (1.001-1.035) Urine Protein Trace (Neg - Trace) Urine Glucose (UA) Negative (Negative) Urine Ketones Negative (Negative) Urine Blood Negative (Negative) Urine Nitrite Negative (Negative) Urine Bilirubin Negative (Negative) Urine Urobilinogen (Auto) 2.0 (0.0-1.0) mg/dL Ur Leukocyte Esterase Negative (Negative) Urine RBC 2 (0-3) /hpf Urine WBC 2 (0-5) /hpf Ur Squamous Epith Cells 1 (0-5) /hpf Amorphous Crystals Present A (Absent) Urine Bacteria None (None) Ur Culture Indicated? Not Indicated Urine Opiates Screen Negative (Negative) Urine Fentanyl Screen Negative (Negative) Ur Barbiturates Screen Negative (Negative) U Amphetamin/Meth Scrn Negative (Negative) U Benzodiazepines Scrn Negative (Negative) U Cocaine Metab Screen Negative (Negative) U Marijuana (THC) Screen Positive A (Negative) Discharge Plan Prescriptions/Referrals Prescriptions/Med Rec: No Action levothyroxine 137 mcg tablet 137 mcg PO 1XD Patient Comments: TAKE ONE TABLET BY MOUTH ONCE DAILY BEFORE BREAKFAST gabapentin 300 mg capsule 300 mg PO 3XD buprenorphine-naloxone 8-2 mg film 1 film BUCCAL 3XD Patient Comments: COMPLETELY DISSOLVE 1 FILM UNDER THE TONGUE THREE TIMES A DAY FOR 4 TO 8 MINUTES aspirin 81 mg Tablet 81 mg PO QDAY duloxetine 60 mg capsule,delayed release(DR/EC) 60 mg PO DAILY magnesium oxide 400 mg (241.3 mg magnesium) tablet 400 mg PO BID Rx Instructions: last dose a wek ago before admission. calcium carbonate 500 mg calcium (1,250 mg) tablet 500 mg PO DAILY Patient Comments: TAKE ONE TABLET BY MOUTH EVERY DAY WITH FOOD Rx Instructions: last dose a month ago before admission. ramelteon 8 mg tablet 8 mg PO HS PRN (Reason: Sleep) cholecalciferol (vitamin D3) 250 mcg (10,000 unit) capsule 250 mcg PO QWEEK Qty: 10 0RF amoxicillin 500 mg capsule 500 mg PO TID Qty: 14 0RF Referrals: Micheline Becerril FNP [Primary Care Provider] - In 1 week Patient/Caregiver Discharge Instructions Print Language: Divehi
[2024-08-25 16:01] LABS: Magnesium 2.1 mg/dL (1.6-2.6); Phosphorous 5.2 mg/dL (2.4-5.1)
--- NOTE | 2024-08-25 20:42 | PD.EDADDENDU ---
Emergency Room Addendum <Imelda Castro - Last Filed: 08/25/24 21:40> Addendum Narrative: [address] Rey. Past medical, surgical, social and family history reviewed. Vitals and home medications reviewed. Results and treatment plan discussed. I will assume the care of the patient at this time and will follow the patient, pending final disposition. Please refer to the emergency department record for history and examination from initial visit. The following addendum documentation note is intended to reflect any pending information, findings, or radiology results not included in the patient?s initial chart. The previous provider canceled the ER note; however, orders were made at 15:26 for Calcium 1,000 mg in 50 mL IV. The patient was placed in the RP area at 21:05. Patient was evaluated by me at 21:16. This is a 48-year-old female presents with progressive fatigue, brain fog, and chest pain that have been ongoing for the past several months. She reports that her symptoms have worsened recently, prompting today's visit. The patient is currently under evaluation by her primary care provider and was recently found to have low calcium levels, for which she has been referred to an transportation solutions manager. <Zenaeric Portillo - Last Filed: 08/26/24 03:03> Addendum Narrative: [address] Rey. Past medical, surgical, social and family history reviewed. Vitals and home medications reviewed. Results and treatment plan discussed. I will assume the care of the patient at this time and will follow the patient, pending final disposition. Please refer to the emergency department record for history and examination from initial visit. The following addendum documentation note is intended to reflect any pending information, findings, or radiology results not included in the patient?s initial chart. The previous provider canceled the ER note; however, orders were made at 15:26 for Calcium 1,000 mg in 50 mL IV. The patient was placed in the RP area at 21:05. Patient was evaluated by me at 21:16. This is a 48-year-old female presents with progressive fatigue, brain fog, and chest pain that have been ongoing for the past several months. She reports that her symptoms have worsened recently, prompting today's visit. The patient is currently under evaluation by her primary care provider and was recently found to have low calcium levels, for which she has been referred to an transportation solutions manager. 0302: Patient is resting comfortably at this time and feels significantly better. Patient received Calcium Gluconate here. Patient is stable to be discharged home. MD Attestation <Imelda Castro - Last Filed: 08/25/24 21:40> MD Attestation Scribe Attestation: I, Bhavna Castro, am scribing for and in the presence of Dr. Chun. Provider Notation: Although this document has been carefully reviewed, there may still be some phonetic and other typographical errors. These errors are purely grammatical due to imperfections in the software program and should not be construed in any way to compromise the substance of the patient's medical care during this visit.
[2024-08-25 21:18] VITALS: BP 142/78; PULSE 50; RESP 16; TEMP 36.7; O2SAT 98
[2024-08-25] MEDS: CALCIUM GLUC/NS 1000MG IVPB 1,000 MG/50 ML BAG 50 MG IV (21:26)
[2024-08-25] MEDS: ACETAMINOPHEN 325 MG TABLET 650 MG PO (23:00)
[2024-08-25 23:55] VITALS: BP 113/68; PULSE 69; RESP 19; TEMP 37.1; O2SAT 95
[2024-08-26 02:29] VITALS: BP 138/85; PULSE 50; RESP 14; TEMP 36.7; O2SAT 94
== END 2024-08-26 03:27 | disposition home or self-care (01) ==
PROVIDERS: Nurse Practitioner Family; Emergency Provider Emergency Medicine; PCP Nurse Practitioner Family
DX: R53.83 Other fatigue (principal); R07.9 Chest pain, unspecified
CPT/HCPCS: 36415; 70450; 71046; 80053; 80307; 81001; 83735; 83880; 83970; 84100; 84484; 85025; 85610; 93005; 96365; 99284; J0613; A9270

== ENCOUNTER 2024-08-28 15:57 | Inpatient (IN) | payer MEDICAID, SELFPAY ==
[2024-08-28] VITALS (8 sets, daily range): BP systolic 160–195; BP diastolic 87–121; PULSE 41–53; RESP 13–18; TEMP 36.7–37; O2SAT 96–99; BMI 42.5
--- NOTE | 2024-08-28 16:20 | PD.EDWEAK ---
ED Weakness RME/HPI General Chief complaint: Dizziness Stated complaint: DIZZY, FATIGUE, CHEST PAIN Time Seen by Provider: 08/28/24 16:07 Arrival date/time: 08/28/24 15:57 Limitations: no limitations RME / HPI RME / HPI Narrative: DR. GUILLEN MAIN ED EVALUATION: 48 year old female presents to the Emergency Department accompanied by her with multiple complaints including generalized weakness, fatigue, body aches/ muscle cramping, dizziness, decreased appetite, and numbness and tingling to all 4 extremities. Symptoms are mild to moderate. Patient states her calcium level is low and that her appointment with her PCP is until the 24th of this month. PMHx: Essential hypertension, palpitations with implantable loop recorder, depression, anxiety, hypothyroidism s/p total thyroidectomy 2019, obesity, COPD. She follows up with her lead material handler Dr. Park in [place] and PCP at [facility]. Social Hx: No tobacco, alcohol, or substance use. Related Data Home Medications ?Medication ?Instructions ?Recorded ?Confirmed buprenorphine 8 mg-naloxone 2 mg 1 film buccal 3XD 06/22/24 06/22/24 sublingual film gabapentin 300 mg capsule 300 mg PO 3XD 06/22/24 06/22/24 levothyroxine 137 mcg tablet 137 mcg PO 1XD 06/22/24 06/22/24 aspirin 81 mg tablet 81 mg PO QDAY 06/23/24 06/23/24 calcium carbonate 500 mg PO DAILY 06/23/24 06/23/24 duloxetine 60 mg capsule,delayed 60 mg PO DAILY 06/23/24 06/23/24 release magnesium oxide 400 mg (241.3 mg 400 mg PO BID 06/23/24 06/23/24 magnesium) tablet ramelteon 8 mg tablet 8 mg PO HS PRN Sleep 06/23/24 06/23/24 losartan 50 mg tablet 50 mg PO BID 08/28/24 08/28/24 Previous Rx's ?Medication ?Instructions ?Recorded cholecalciferol (vitamin D3) 250 250 mcg PO QWEEK #10 caps 06/23/24 mcg (10,000 unit) capsule amoxicillin 500 mg capsule 500 mg PO TID Pneumonia #14 caps 06/24/24 Allergies Allergy/AdvReac Type Severity Reaction Status Date / Time No Known Allergies Allergy Verified 08/28/24 16:01 Review of Systems Review of Systems Systems Reviewed: All systems reviewed, normal except as documented Narrative Review of Systems: GEN: No fever, no chills, no weight loss, + fatigue, + decreased appetite EYES: No discharge, no visual changes, no pain HEENT: No ear pain, no congestion, no sore throat PULM: No shortness of breath, no cough, no congestion CV: No chest pain, no dyspnea on exertion, no palpitations GI: No nausea, no vomiting, no diarrhea, no pain, no constipation : No frequency, no urgency and no dysuria MUSC/SKEL: + body aches/ muscle cramping, no back pain SKIN: No rash PSYCH: No hallucinations, no depression HEME/LYMPH: No easy bleeding or bruising tendencies NEURO: No weakness, no headache, + generalized weakness, + dizziness, + numbness and tingling to all 4 extremities Past Medical History Past Medical History CARDIAC: Positive Cardiac Disorders, Cardiomyopathy and Hypertension RESPIRATORY: Positive Chronic Obstructive Pulmonary Disease (COPD), Asthma and Pneumonia GASTROINTESTINAL: Positive Gastrointestinal Disorders, Gall Bladder Disease and Ulcer; Negative Hepatitis GENITOURINARY: Negative Genitourinary Disorders or Renal Disease REPRODUCTIVE: Positive Previous Pregnancies; Negative Pelvic Inflammatory Disease MUSCULOSKELETAL: Positive Musculoskeletal Disorders, Scoliosis and Fractures ENT: Positive Ear Infection HEMATOLOGIC: Positive Blood Disorders and Anemia PSYCHO/SOCIAL: Positive Depression and Anxiety OTHER HISTORY: Positive Shingles, Chicken Pox and Mumps Family History FAMILY HISTORY: Positive Family Respiratory Disorders, Family Cardiac Disorders and Family Cancer; Negative Family Psychiatric Problems, Family Gastrointestinal Problems, Family Surgery or Family Anesthesia Reaction Surgical History SURGICAL: Positive Thyroidectomy, Abdominal Surgery and Tubal Ligation; Negative Cardiac Surgery, Endocrine Surgery, Ear Surgery, Nephrectomy, Joint Replacement, Mastectomy or Lumpectomy Social History SMOKING STATUS: Former smoker SUBSTANCE USE: does not use ALCOHOL: Never ED Exam General Limitations: Present no limitations General appearance: Present alert, in no apparent distress, obese and other (tearful and emotional) Head Head exam: Present atraumatic, normocephalic and normal inspection Eye Eye exam: Present normal appearance, PERRL and EOMI ENT ENT exam: Present normal exam, normal oropharynx and mucous membranes moist Neck Neck exam: Present normal inspection, full ROM and trachea midline Chest Chest inspection: Present normal inspection and symmetric chest wall rise Respiratory Respiratory exam: Present normal lung sounds bilaterally Cardiovascular Cardiovascular exam: Present regular rate, normal rhythm and normal heart sounds Abdominal Exam Abdominal exam: Present soft and normal bowel sounds Extremities Exam Extremities exam: Present normal inspection and full ROM Back Exam Back exam: Present normal inspection and full ROM Neurological Exam Neurological exam: Present alert, oriented X3 and CN II-XII intact Psychiatric Psychiatric exam: Present normal affect and normal mood Skin Skin exam: Present warm, dry, intact and normal color Course Course Course Narrative: 1800: Patient was signed out to Dr. Lauren. Past medical, surgical, social and family history reviewed. Vitals and home medications reviewed. Results and treatment plan discussed. They will assume the care of the patient at this time and will follow the patient, pending remainder of diagnostic tests and final disposition. Quality Measures none Orders Category Date Time Status Server Developer Q4H START 00 Care 08/28/24 16:34 Active EKG (ED ONLY) *Do not use* NOW Care 08/28/24 16:25 Completed EKG (ED ONLY) *Do not use* NOW Care 08/28/24 20:01 Completed EKG (ED Only) Stat Exams 08/28/24 16:25 Draft EKG (ED Only) Stat Exams 08/28/24 20:01 Ordered XR chest 1V portable Stat Exams 08/28/24 19:14 Completed B-Type Natriuretic Peptide Stat Lab 08/28/24 16:44 Completed CBC Stat Lab 08/28/24 16:44 Completed CMP [Comprehensive Metabolic Panel] Stat Lab 08/28/24 21:08 Completed Calcium, Ionized Stat Lab 08/28/24 16:44 Completed Comprehensive Metabolic Panel Stat Lab 08/28/24 16:44 Completed Free T4 (Free Thyroxine) Stat Lab 08/28/24 21:08 Completed Lipase Stat Lab 08/28/24 16:44 Completed Magnesium Stat Lab 08/28/24 16:44 Completed PTH [Parathyroid Hormone Intact] Stat Lab 08/28/24 16:44 Received Partial Thromboplastin Time Stat Lab 08/28/24 16:44 Completed Prothrombin Time with INR Stat Lab 08/28/24 16:44 Completed TSH [Thyroid Stimulating Hormone] Stat Lab 08/28/24 16:44 Completed Troponin I Stat Lab 08/28/24 21:08 Completed Urinalysis Stat Lab 08/28/24 17:02 Completed Vitamin D 25 Hydroxy Total Stat Lab 08/28/24 16:44 Received Acetaminophen Ivpb [Ofirmev Inj] Med 08/28/24 18:47 Discontinued 1,000 mg in 100 ml IV X1 Calcium Carbonate Med 08/28/24 17:15 Discontinued 1,200 mg PO X1 ONE Calcium Chloride 10% Inj 10 ml Med 08/28/24 17:15 Discontinued Dextrose 5%-Water [D5w] 100 ml IV X1 Sodium Chloride 0.9% 1000 ml [Ns] 1,000 ml Med 08/28/24 16:45 Active IV 100 mls/hr Vital Signs Vital signs: Vital Signs Temperature 98.6 F 08/28/24 16:39 Pulse Rate 52 L 08/28/24 16:39 Respiratory Rate 18 08/28/24 16:39 Blood Pressure 195/121 H 08/28/24 16:39 Pulse Oximetry (%) 99 08/28/24 16:39 Oxygen Delivery Method Room Air 08/28/24 16:39 Procedures -ED EKG Interpretation #1: Date of EK08/28/24 Time of EK:36 Rate: 50 Interpretation: Interpreted by me Additional EKG comment: sinus bradycardia, rate 50, right bundle branch block, no STEMI Weakness MDM Narrative MDM Narrative:: Camille Manzanares am scribing for and in the presence of Dr. Guillen. Patient data External records reviewed:: [facility] previous records (Reviewed last ED visit dated 08/26/24, discharged with the following: Chronic hypokalemia) Clinical information provided by:: patient and spouse Social determinants that could affect healthcare access:: none Patient has the following chronic illnesses:: Essential hypertension, palpitations with implantable loop recorder, depression, anxiety, hypothyroidism s/p total thyroidectomy 2019, obesity, COPD. She follows up with her lead material handler Dr. Park in [place] and PCP at [facility]. How is presenting disease/condition affected by chronic disease/condition?: exacerbated by Evaluation data The following diagnostics were reviewed and interpreted by me:: lab results and EKG tracing(s) Lab and/or radiology exams considered but not ordered:: none Interpretation Summary: Pending diagnostic tests, patient signout to the warehouse worker 2nd shift provider. Medications / Prescriptions Medications or Prescriptions considered but not ordered:: none Medication administrations:: Medication Administration History Acetaminophen (Acetaminophen 325 Mg Tablet) 650 mg PO Q6H PRN PRN Reason: Fever >100 or pain 1-3 Stop: 09/27/24 22:55 Aspirin (Aspirin Ec 81 Mg Tabec) 81 mg PO QDAY MASSIMO Stop: 09/28/24 08:59 Duloxetine HCl (Duloxetine Hcl 30 Mg Capsule) 60 mg PO HS MASSIMO Stop: 09/27/24 23:19 Last Admin: 08/28/24 23:50 Dose: 60 mg Documented By: EF Gabapentin (Gabapentin 300 Mg Capsule) 300 mg PO TID PRN PRN Reason: cramps and neuropathic pain Stop: 09/28/24 05:59 Sodium Chloride (Ns) 1,000 mls @ 100 mls/hr IV .Q10H MASSIMO Stop: 09/27/24 16:44 Last Admin: 08/28/24 17:37 Dose: 100 mls/hr Documented By: CHIKA Levothyroxine Sodium (Levothyroxine Sodium 25 Mcg Tablet) 25 mcg PO ACBR MASSIMO Stop: 09/28/24 05:59 Levothyroxine Sodium (Levothyroxine Sodium 112 Mcg Tablet) 112 mcg PO ACBR MASSIMO Stop: 09/28/24 05:59 Losartan Potassium (Losartan Potassium 25 Mg Tablet) 50 mg PO QDAY MASSIMO Stop: 09/28/24 08:59 Discontinued Medications Calcium Carbonate (Calcium Carbonate 600 Mg Tablet) 1,200 mg PO X1 ONE Stop: 08/28/24 17:16 Last Admin: 08/28/24 18:19 Dose: 1,200 mg Documented By: CHIKA Hydralazine HCl (Hydralazine Inj 20 Mg/Ml Vial) 5 mg IV X1 ONE Stop: 08/28/24 23:10 Last Admin: 08/28/24 23:49 Dose: 5 mg Documented By: NELSON Calcium Chloride 10 ml/ (Dextrose) 110 mls @ 110 mls/hr IV X1 ONE Stop: 08/28/24 18:14 Last Infusion: 08/28/24 19:20 Dose: Infused Documented By: Admin: 08/28/24 18:20 Dose: 110 mls/hr Documented By: CHIKA Acetaminophen (Ofirmev Inj) 1,000 mg in 100 mls @ 250 mls/hr IV X1 ONE Stop: 08/28/24 19:10 Last Infusion: 08/28/24 19:59 Dose: Infused Documented By: Admin: 08/28/24 19:35 Dose: 250 mls/hr Documented By: EF see above Consultations Consultation(s) initiated? (list below): No Diagnosis Weakness Differential Diagnosis: acute myocardial infarction, anemia, hypoglycemia, sepsis and dehydration Most likely diagnosis given after review of the tests above:: No official diagnoses at this time, still pending diagnostic tests. Patient signout to the warehouse worker 2nd shift provider. Admission Indicated Admission indicated?: not indicated Explain why admission is indicated or not indicated:: No final disposition plan at this time, still pending diagnostic tests. Patient signout to the warehouse worker 2nd shift provider. Admission Request Was there a request for admission?: No Disposition Plan Disposition Plan: other (specify) (Patient signout to the warehouse worker 2nd shift provider. ) Discharge Plan Plan Patient Disposition: Admit Acute Care w/in Hospital Problem List Clinical Impression: Hypocalcemia, Chest pain, Anemia, mild
--- NOTE | 2024-08-28 16:25 | EKG_ITS ---
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
[2024-08-28 16:49] LABS: Calcium, Ionized 3.4 mg/dL (4.6-5.6)
[2024-08-28 17:04] LABS: Basophils # (Auto) 0.1 Thou/mm3 (0.0-0.2); Basophils % (Auto) 1 % (0-2.5); Eosinophils # (Auto) 0.2 Thou/mm3 (0.0-0.5); Eosinophils % (Auto) 4 % (0-10); Hematocrit 35.6 % (36.0-46.0); Hemoglobin 11.7 g/dL (12.0-16.0); Immature Granulocytes % (Auto) 0 % (0-0); Immature Granulocytes Auto 0.01 Thou/mm3 (0.00-0.00); Lymphocytes # (Auto) 2.5 Thou/mm3 (1.0-4.8); Lymphocytes % (Auto) 39 % (10-50); Mean Corpuscular HGB Conc 32.9 g/dl (31.0-37.0); Mean Corpuscular Hemoglobin 30.5 pg (25.0-35.0); Mean Corpuscular Volume 93 fL (80-100); Monocytes # (Auto) 0.4 Thou/mm3 (0.0-0.8); Monocytes % (Auto) 6 % (0-12); Neutrophils # (Auto) 3.1 Thou/mm3 (1.8-7.7); Neutrophils % (Auto) 50 % (37-80); Nucleated Red Blood Cell % 0 /100 WBC (0); Platelet Count 181 Thou/mm3 (140-440); Red Blood Count 3.83 Miln/mm3 (4.00-5.20); White Blood Count 6.2 Thou/mm3 (3.6-11.0)
--- NOTE | 2024-08-28 17:04 | PC.NURSE ---
Patient seen in the emergency room for CC of dizzyiness that has progressively gotten worse in the last 3 days. Pt stated she feels like she is in a rocking boat and c/o chest pain that is mild but still disturbing her. Currently blood pressure was elevated and heart rate is low at 50. Pt has a loop recorder that was placed Apr 2024 and has family history of cardiac issues. Andria pt is in bed continous to c/o dizziness.
[2024-08-28 17:07] LABS: B-Type Natriuretic Peptide 218 pg/mL (0-100)
[2024-08-28 17:11] LABS: Partial Thromboplastin Time 27.1 Seconds (22.0-36.0); Prothrombin Time 10.9 Seconds (9.0-12.2)
[2024-08-28 17:12] LABS: Alanine Aminotransferase 44 U/L (10-49); Albumin, Serum 3.9 gm/dL (3.5-5.0); Albumin/Globulin Ratio 1.5 (1.2-2.2); Alkaline Phosphatase 80 U/L (46-116); Anion Gap 7 (7-16); Aspartate Amino Transferase 28 U/L (0-34); BUN/Creatinine Ratio 12 Ratio (12-20); Bilirubin,Total 0.4 mg/dL (0.3-1.2); Blood Urea Nitrogen 11 mg/dL (9-23); Calcium 6.9 mg/dL (8.3-10.6); Carbon Dioxide 30.8 mMol/L (20.0-31.0); Chloride 104 mMol/L (98-107); Creatinine (Component) 0.9 mg/dL (0.6-1.3); Estimated Creatinine Clearance 88.5 mL/min (>60); Globulin 2.6 gm/dL (2.3-3.5); Glucose 90 mg/dL (74-106); Lipase 31 U/L (12-53); Magnesium 1.9 mg/dL (1.6-2.6); Osmolality,Calculated 282 (275-295); Potassium 4.1 mMol/L (3.4-5.1); Sodium 142 mMol/L (136-145); Thyroid Stimulating Hormone 6.42 uIU/mL (0.55-4.78); Total Protein 6.5 gm/dL (5.7-8.2); eGFR > 60 See Note
[2024-08-28 17:35] LABS: Collection Type, Urine Clean Catch
[2024-08-28] MEDS: SODIUM CHLORIDE 0.9% 1000 ML 1,000 ML 100 ML IV (17:37)
[2024-08-28 17:46] LABS: Bilirubin,Urine Negative (Negative); Blood,Urine Negative (Negative); Clarity,Urine Clear (Clear/Hazy); Color,Urine Lt-Yellow (Lt Yel-Yel); Glucose, Urine Negative (Negative); Ketones,Urine Negative (Negative); Leukocyte Esterase,Urine Negative (Negative); Nitrite,Urine Negative (Negative); Protein,Urine Negative (Neg - Trace); RBC,Urine 4 /hpf (0-3); Squamous Epithelial Cell,Urine 6 /hpf (0-5); Urobilinogen,Urine Negative mg/dL (0.0-1.0); WBC,Urine 2 /hpf (0-5)
--- NOTE | 2024-08-28 18:14 | EDNOTE_ITS ---
Emergency Room Addendum Addendum Narrative: 1800: Care assumed from Dr. Chi, the previous shift emergency physician. Past medical, surgical, social and family history reviewed. Vitals and home medications reviewed. I will assume the care of the patient at this time, pending remainder of diagnostic tests and final disposition. Please refer to the emergency department record for history and examination from initial visit.? 48 year old female with past medical history significant for essential hypertension, palpitations with implantable loop recorder, depression, anxiety, hypothyroidism s/p total thyroidectomy 2019, obesity, COPD. She follows up with her software support technician Dr. Park in [place] and PCP at [facility]. Patient presents with mulitple complaints including generalized weakness, dyspnea, diffuse body aches/ muscle cramping, dizziness, decreased appetite, and numbness and tingling to all 4 extremities. Symptoms are mild to moderate. Patient states her calcium level is low and here is was 6.9. 1920: Discussed test HPI, PMHx, lab, radiology results and/or management with resident working with hospitalist Dr. Tam. Will admit for further evaluation and management. Accepts patient for admission. Diagnoses: -Hypocalcemia -Chest pain -Anemia, mild EKG: Dated 08/28/2024 at 1636 hours. Interpreted by me: sinus bradycardia, rate 50, normal axis, right bundle branch block CRITICAL CARE: TIME: 45 minutes. The high probability of sudden, clinically significant deterioration in the patient?s condition required the highest level of my preparedness to intervene urgently. The services I provided to this patient were to treat and/or prevent clinically significant deterioration. Services included the following: chart data review, reviewing nursing notes and/or old charts, documentation time, framing consultant collaboration regarding findings and treatment options, medication orders and management, direct patient care, vital sign assessments and ordering, interpreting and reviewing diagnostic studies and lab tests. Aggregate critical care time includes only time during which I was engaged in work directly related to the patient?s care, as described above, whether at [facility] or elsewhere in the Emergency Department. It did not include time spent performing other reported procedures or the services of residents, students, nurses or physician assistants.
[2024-08-28] MEDS: CALCIUM CARBONATE 600 MG TABLET 1200 MG PO (18:19)
[2024-08-28] MEDS: Calcium Chloride 10% Inj 10 ML in DEXTROSE 5%-WATER 100 ML 110 ML IV (18:20)
--- NOTE | 2024-08-28 19:14 | XR_ITS ---
Examination: AP chest single view Technique: AP portable upright chest single view Exam date and time: August 28, 2024, 1820 hrs. Comparison August 25, 2024 Indications: Chest pain today Findings: Mild enlargement cardiac contour Moderate vascular congestion Minor subsegmental atelectasis right base No lobar pneumonia Impression: Moderate vascular congestion
[2024-08-28] MEDS: ACETAMINOPHEN IVPB 1,000 MG/100 ML VIAL 250 MG IV (19:35)
--- NOTE | 2024-08-28 20:01 | EKG_ITS ---
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
[2024-08-28 21:38] LABS: Alanine Aminotransferase 46 U/L (10-49); Albumin, Serum 3.9 gm/dL (3.5-5.0); Albumin/Globulin Ratio 1.4 (1.2-2.2); Alkaline Phosphatase 78 U/L (46-116); Anion Gap 7 (7-16); Aspartate Amino Transferase 31 U/L (0-34); BUN/Creatinine Ratio 16 Ratio (12-20); Bilirubin,Total 0.6 mg/dL (0.3-1.2); Blood Urea Nitrogen 11 mg/dL (9-23); Calcium 8.4 mg/dL (8.3-10.6); Calcium (Corrected) 8.5 mg/dL (8.5-10.1); Chloride 105 mMol/L (98-107); Creatinine (Component) 0.7 mg/dL (0.6-1.3); Estimated Creatinine Clearance 113.8 mL/min (>60); Free T4 (Free Thyroxine) 1.14 ng/dL (0.89-1.76); Globulin 2.7 gm/dL (2.3-3.5); Glucose 97 mg/dL (74-106); Osmolality,Calculated 280 (275-295); Sodium 141 mMol/L (136-145); Total Protein 6.6 gm/dL (5.7-8.2); Troponin I < 0.020 ng/mL (0.0-0.045); eGFR > 60 See Note
[2024-08-28] MEDS: hydrALAZINE INJ 20 MG/ML VIAL 5 MG IV (23:49)
[2024-08-28] MEDS: DULoxetine HCL 30 MG CAPSULE 60 MG PO (23:50)
--- NOTE | 2024-08-28 23:55 | ESHP_ITS ---
<Statement entered by Lyn Tam MD - 08/30/24 04:57> 48-year-old female with multiple comorbidities including hypothyroidism status post thyroidectomy, presentation, status post implantable loop recorder (done 04/2024) Takotsubo stress-induced cardiomyopathy with heart failure with preserved EF who presented with generalized weakness found to have symptomatic sinus bradycardia with no evidence of any AV block. Also noted to have hypocalcemia and subsequently plan to give the patient IV calcium.I reviewed above note and agree with findings and plans. I have also personally examined the patient with medicine team and went over assessment and plan with medical team including pharmacy graduate intern and resident physician. Documentation for date of: 08/28/24 HPI History of Present Illness History of present illness: Ivis is a 48 y/o female with PMHx of hypothyroidism s/p total thyroidectomy [address] Olivas, HTN, palpitations s/p implantable loop recorder (Done in April 2024), Takotsubo stress-induced cardiomyopathy, HFpEF (EF ~55-60%, G1DD), depression, anxiety, obesity, ? COPD, and substance abuse (Meth) who comes to [facility] on August 28, 2024 for an evaluation of muscle cramps in upper and lower extremities, weakness, fatigue and some chest pain. Patient reports that the symptoms have been going on for some time. Patient reports that she did come in the ED for similar complaints a couple of days ago and was found to have low calcium and discharged on calcium supplements. She said that her symptoms did not improve and decided to come get evaluated. Her heart rate which was low when being evaluated, she says that her heart rate has never gotten this low which was in the 40s. She says that she was going to follow-up with an address change clerk and her appointment is on September 14 and she was supposed to get her appointment earlier however her primary care doctor referred her to an ENT instead of an address change clerk. 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 She does confirm having low Calcium consistently and that she only got a total thyroidectomy. She denies any recent travel, and changes to diet. She does complain of a little nausea at the time. She has been taking her medicines as prescribed including calcium supplements. Denies hx of seizures. No other complaints at this time. ED Course: She came to the ED with a temperature of 98.6, heart rate of 52, respiratory of 18, blood pressure of 195/121, saturating 99% on room air. She was worked up and found to have a sodium of 142, potassium 4.1, bicarb 31, BUN/creatinine of 11 and 0.9 respectively, glucose of 90, white count 6.2, hemoglobin 11.7, corrected calcium of 7, AST ALT 20 and 44 respectively, TSH of 6.42, albumin 3.9. Patient was given calcium carbonate 1200 mg, calcium chloride 10 mg. Medicine was consulted and patient admitted to floors. PMHx: As above Surgeries: Total thyroidectomy, uterine ablation, cholecystectomy, and umbilical hernia repair Allergies: NKDA Meds: Levothyroxine 137 mcg p.o. daily, Losartan 100 milligrams p.o. daily, Aspirin 81 mg p.o. daily, Gabapentin 300 mg p.o. 3 times daily, Cymbalta 60 mg p.o. daily, Suboxone 8/ 1 tab p.o. 3 times daily Family Hx: Hx of CAD and heart attacks in parents later in life. Siblings have pacemakers put into them due to having sick sinus syndrome. Social Hx: About 20 pack year smoking hx, with 4 kids, quit drinking about 3 years ago and was an alcoholic at some point Lives with and kids. Hasnt used meth in over 20 years. Takes suboxone Review of Systems Review of Systems Narrative Review of Systems: Constitutional: No fever, chills, +fatigue, +weakness, no weight loss HEENT: No eye pain, vision loss, ear pain, hearing loss, dysphagia, Cardiovascular: No chest pain, palpitations, edema, pain with walking Respiratory: No cough, shortness of breath, wheezing GI: No NVD, abdominal pain, constipation, blood in stool, loss of appetite, heartburn Extremities: No presence of pitting edema MSK: No back pain, joint pain, joint swelling Neuro: No dizziness, numbness, +tremors, + weakness, + tetany Psych: No anxiety, depression Exam Vital Signs Temp Pulse Resp BP Pulse Ox O2 Del Method 98.0 F 53 L 13 177/91 H 96 Room Air 08/28/24 23:14 08/28/24 23:49 08/28/24 23:14 08/28/24 23:49 08/28/24 23:14 08/28/24 23:14 Narrative Exam General: AAOx3, NAD, morbidly obese female lying down HEENT: Moist mucous membranes, conjunctiva clear, EOMI, PERRLA, possible + chvostek sign Cardiovascular: S1, S2, radial pulses +2 bilat, RRR Pulmonary: CTAB bilat no cough, no wheezing GI: No tenderness to light or deep palpitation, no guarding, rigidity, rebound tenderness or distension Extremities: No presence of trace or pitting edema in lower extremities bilaterally, dorsalis pedis pulses +2 bilaterally Neuro: AAOx3, no focal motor or sensory deficits in the UE or LE bilat Psych: Good judgement, thought and behavior. Cooperative Results: Labs 08/28/24 16:44 08/28/24 21:08 Labs: Short CBC 08/28/24 Range/Units 16:44 WBC 6.2 (3.6-11.0) Thou/mm3 Hgb 11.7 L (12.0-16.0) g/dL Hct 35.6 L (36.0-46.0) % Plt Count 181 (140-440) Thou/mm3 BMP 08/28/24 08/28/24 16:44 21:08 Sodium 142 141 Potassium 4.1 4.0 Chloride 104 105 Carbon Dioxide 30.8 29.0 BUN 11 11 Creatinine 0.9 0.7 Glucose 90 97 Calcium 6.9 L 8.4 D Cardiac Enzymes 08/28/24 Range/Units 21:08 Troponin I < 0.020 (0.0-0.045) ng/mL Liver Function 08/28/24 08/28/24 Range/Units 16:44 21:08 Total Bilirubin 0.4 0.6 (0.3-1.2) mg/dL AST 28 31 (0-34) U/L ALT 44 46 (10-49) U/L Alkaline Phosphatase 80 78 (46-116) U/L Albumin 3.9 3.9 (3.5-5.0) gm/dL Urine 08/28/24 Range/Units 17:02 Urine Color Lt-Yellow (Lt Yel-Yel) Urine Clarity Clear (Clear/Hazy) Urine pH 8.0 H (5.0-7.0) Ur Specific [place] 1.020 (1.001-1.035) Urine Protein Negative (Neg - Trace) Urine Glucose (UA) Negative (Negative) Quality Measures Quality Measures none Medications Home Medications and Allergies Home Medications ?Medication ?Instructions ?Recorded ?Confirmed ?Type buprenorphine 8 mg-naloxone 2 mg 1 film buccal 3XD 01/0706/22/24 History sublingual film gabapentin 300 mg capsule 300 mg PO 3XD 06/22/2406/22 History levothyroxine 137 mcg tablet 137 mcg PO 1XD 06/22/24 0 06/22/24 History aspirin 81 mg tablet 81 mg PO QDAY 06/23/2406/23 History calcium carbonate 500 mg PO DAILY 06/23/2402/07 History duloxetine 60 mg capsule,delayed 60 mg PO DAILY 06/23/24 History release magnesium oxide 400 mg (241.3 mg 400 mg PO BID 5 06/23/24 History magnesium) tablet ramelteon 8 mg tablet 8 mg PO HS PRN Sleep 5 06/23/24 History losartan 50 mg tablet 50 mg PO BID 08/28/24 History Allergies Allergy/AdvReac Type Severity Reaction Status Date / Time No Known Allergies Allergy Verified 08/28/24 16:01 Visit Medications Acetaminophen (Acetaminophen 325 Mg Tablet) 650 mg PO Q6H PRN PRN Reason: Fever >100 or pain 1-3 Stop: 09/27/24 22:55 Aspirin (Aspirin Ec 81 Mg Tabec) 81 mg PO QDAY MASSIMO Stop: 09/28/24 08:59 Duloxetine HCl (Duloxetine Hcl 30 Mg Capsule) 60 mg PO HS MASSIMO Stop: 09/27/24 23:19 Last Admin: 08/28/24 23:50 Dose: 60 mg Gabapentin (Gabapentin 300 Mg Capsule) 300 mg PO TID PRN PRN Reason: cramps and neuropathic pain Stop: 09/28/24 05:59 Sodium Chloride (Ns) 1,000 mls @ 100 mls/hr IV .Q10H MASSIMO Stop: 09/27/24 16:44 Last Admin: 08/28/24 17:37 Dose: 100 mls/hr Levothyroxine Sodium (Levothyroxine Sodium 25 Mcg Tablet) 25 mcg PO ACBR MASSIMO Stop: 09/28/24 05:59 Levothyroxine Sodium (Levothyroxine Sodium 112 Mcg Tablet) 112 mcg PO ACBR MASSIMO Stop: 09/28/24 05:59 Losartan Potassium (Losartan Potassium 25 Mg Tablet) 50 mg PO QDAY MASSIMO Stop: 09/28/24 08:59 Discontinued Medications Calcium Carbonate (Calcium Carbonate 600 Mg Tablet) 1,200 mg PO X1 ONE Stop: 08/28/24 17:16 Last Admin: 08/28/24 18:19 Dose: 1,200 mg Hydralazine HCl (Hydralazine Inj 20 Mg/Ml Vial) 5 mg IV X1 ONE Stop: 08/28/24 23:10 Last Admin: 08/28/24 23:49 Dose: 5 mg Calcium Chloride 10 ml/ (Dextrose) 110 mls @ 110 mls/hr IV X1 ONE Stop: 08/28/24 18:14 Last Infusion: 08/28/24 19:20 Dose: Infused Acetaminophen (Ofirmev Inj) 1,000 mg in 100 mls @ 250 mls/hr IV X1 ONE Stop: 08/28/24 19:10 Last Infusion: 08/28/24 19:59 Dose: Infused Assessment & Plan Plan Assessment Ivis is a 48 y/o female with PMHx of hypothyroidism s/p total thyroidectomy [address] Olivas, HTN, palpitations s/p implantable loop recorder (Done in April 2024), Takotsubo stress-induced cardiomyopathy, HFpEF (EF ~55-60%, G1DD), depression, anxiety, obesity, ? COPD, and substance abuse (Meth) who is admitted for evaluation of symptomatic bradycardia and hypocalcemia. #Symptomatic sinus bradycardia #RBBB, chronic #HFpEF with EF 55-60%, G1DD #S/p Implantable loop recorder #Hx of Takotsubo stress induced cardiomyopathy DDx: Hypothyroidism, CAD, medication side effect Echo from June 2024: Normal LV size and function. Stage I diastolic dysfunction. Estimated EF 55-60% Normal RV size and function. Mild MR. Trace TR. EF appeared normal but images of the apex are not clear. Recommended to follow-up echo with primary soccer referee in [place] with [employer] as it is unavailable at this institution. Sees soccer referee Dr. Park in [place] EKG today and from a couple of days ago shows sinus bradycardia with a rate in the 40s and right bundle branch block Patient has been having implantable loop recorder since April At this point we do not see AV block, or prolongation of MI Patient has been having ongoing symptoms including palpitations BNP~ 200s TSH was elevated, however, T4 normal Medication side effects only include metoprolol at this time Plan: ? Consider cardiology consult ? Keep magnesium and potassium above 2 and 4 respectively ? Telemetry ? Avoid beta-shira and any other medicines that can slow heart rate ? Consider starting SGLT-2 as part of GDMT ? Atropine 1 mg every 3 minutes as needed for bradycardia 30 or below #Symptomatic chronic hypocalcemia #Status post total thyroidectomy, 2019 #Prolonged QT Patient is symptomatic, having tetany, possible chvostek sign Previous PTH is normal done in June 2024 QT 542 Patient could be having persistent hypocalcemia as patient has history of total thyroidectomy and parathyroids can be affected PTH still can be normal despite hypocalcemia and if there is dysfunction with parathyroid Patient is supposed to see Endo on September 14 Plan: ? Follow-up activated vitamin D ? Follow-up random urine calcium ? Follow-up PTH ? Trend calcium and phosphorus ? Avoid QT prolonging agents ? Consider stool softeners ? Telemetry ? Seizure precautions #History of CAD #Hypertensive emergency #Essential hypertension Patient is symptomatic including chest pains possible headache, no signs of endorgan damage at this time Home medication losartan 100 Mg p.o. daily Gave hydralazine 5 mg IV twice Cardiac cath records show mild LAD bridging Plan: ? Continue home medication losartan 50 mg by mouth every day ? Do not correct systolic blood pressure more than 25% within the first 24 hours ? Hydralazine 5 mg IV every 4 hours as needed for SBP above 180 ? Continued home aspirin #History of hypothyroidism TSH 6.42, free T4 normal Can be reactive at this point, could be attributing to bradycardia Plan: ? Resume home Synthroid 137 mcg #History of meth abuse #History of THC abuse #History of depression #History of anxiety #History of morbid obesity U tox shows marijuana Patient has not used meth in over 20 years per patient Plan: ? Will hold on resuming home Suboxone due to possible QT prolongation ? Resumed home Cymbalta 60 mg at bedtime Patient seen and care discussed with my attending physician, Dr. Yonatan Mirza, PGY-1 Attending Provider Attestation/Addendum 48-year-old obese female with hypertension, hypothyroidism COPD, is being admitted for evaluation and management of chest pain. She currently has a loop recorder. Chest x-ray showed early right-sided pneumonia, there is also a left lung nodule 12 mm. Patient states she's had [place] fever. She seess soccer referee Dr. Park. She's had negative coronary (radial approach) angiogram last December. EKG showed right bundle branch block. Troponin is 0.02. Calcium 6.6.
[2024-08-29] VITALS (15 sets, daily range): BP systolic 120–202; BP diastolic 64–105; PULSE 43–66; RESP 16–18; TEMP 36–36.6; O2SAT 97–98
[2024-08-29] MEDS: hydrALAZINE INJ 20 MG/ML VIAL 5 MG IV (04:59)
[2024-08-29] MEDS: SODIUM CHLORIDE 0.9% 1000 ML 1,000 ML 100 ML IV (05:01)
[2024-08-29] MEDS: GABAPENTIN 300 MG CAPSULE PO ×2 (05:07→14:44)
[2024-08-29] MEDS: LEVOTHYROXINE SODIUM 112 MCG TABLET PO (05:42)
[2024-08-29] MEDS: LEVOTHYROXINE SODIUM 25 MCG TABLET PO (05:42)
[2024-08-29 06:57] LABS: Basophils # (Auto) 0.1 Thou/mm3 (0.0-0.2); Basophils % (Auto) 1 % (0-2.5); Eosinophils # (Auto) 0.2 Thou/mm3 (0.0-0.5); Eosinophils % (Auto) 3 % (0-10); Hemoglobin 12.3 g/dL (12.0-16.0); Immature Granulocytes % (Auto) 0 % (0-0); Immature Granulocytes Auto 0.01 Thou/mm3 (0.00-0.00); Lymphocytes # (Auto) 1.8 Thou/mm3 (1.0-4.8); Lymphocytes % (Auto) 26 % (10-50); Mean Corpuscular HGB Conc 33.2 g/dl (31.0-37.0); Mean Corpuscular Hemoglobin 30.3 pg (25.0-35.0); Mean Corpuscular Volume 91 fL (80-100); Monocytes # (Auto) 0.4 Thou/mm3 (0.0-0.8); Monocytes % (Auto) 5 % (0-12); Neutrophils # (Auto) 4.4 Thou/mm3 (1.8-7.7); Neutrophils % (Auto) 65 % (37-80); Nucleated Red Blood Cell % 0 /100 WBC (0); Platelet Count 189 Thou/mm3 (140-440); Red Blood Count 4.06 Miln/mm3 (4.00-5.20); White Blood Count 6.8 Thou/mm3 (3.6-11.0)
[2024-08-29 07:14] LABS: Alanine Aminotransferase 43 U/L (10-49); Albumin, Serum 4.2 gm/dL (3.5-5.0); Albumin/Globulin Ratio 1.6 (1.2-2.2); Alkaline Phosphatase 84 U/L (46-116); Anion Gap 8 (7-16); Aspartate Amino Transferase 26 U/L (0-34); BUN/Creatinine Ratio 10 Ratio (12-20); Bilirubin,Total 0.7 mg/dL (0.3-1.2); Blood Urea Nitrogen 8 mg/dL (9-23); Calcium 7.9 mg/dL (8.3-10.6); Calcium (Corrected) 7.9 mg/dL (8.5-10.1); Chloride 102 mMol/L (98-107); Creatinine (Component) 0.8 mg/dL (0.6-1.3); Estimated Creatinine Clearance 106.3 mL/min (>60); Globulin 2.7 gm/dL (2.3-3.5); Glucose 103 mg/dL (74-106); Magnesium 1.6 mg/dL (1.6-2.6); Osmolality,Calculated 277 (275-295); Phosphorous 5.3 mg/dL (2.4-5.1); Potassium 4.4 mMol/L (3.4-5.1); Sodium 140 mMol/L (136-145); Total Protein 6.9 gm/dL (5.7-8.2); eGFR > 60 See Note
[2024-08-29] MEDS: CALCITRIOL 0.25 mCg CAPSULE 0.5 MCG PO ×2 (09:19→21:04)
[2024-08-29] MEDS: CALCIUM CARBONATE 600 MG TABLET 1200 MG PO ×2 (09:19→21:04)
[2024-08-29] MEDS: Magnesium Sulfate 4 GM Ivpb 4 GM/50 ML BAG IV ×2 (09:19→21:09)
[2024-08-29] MEDS: ASPIRIN EC 81 MG TABEC PO (09:19)
[2024-08-29] MEDS: LOSARTAN POTASSIUM 25 MG TABLET 50 MG PO ×2 (09:20→21:01)
--- NOTE | 2024-08-29 11:25 | PD.RESPRO ---
Documentation for date of: 08/29/24 Subjective Subjective Interval history: Patient is an overnight admit. Patient states that she has been feeling cramps in her lower extremities and tingling and numbness around her jaw and mouth for some time which has progressively worsened. Patient has been seeing her primary care regularly who referred her to an flask fitter for the management of her hypocalcemia status post total thyroidectomy. Patient has an upcoming appointment, in September. Patient states that she continues to have muscle cramps around her thighs and has a severe headache due to high blood pressure. Patient states she regularly takes all of her medication. Patient denies any palpitations right now however she says that she has substernal chest pain which does not radiate which has been happening for weeks now. Denies orthopnea, PND or diaphoresis. Patient blood pressure remains elevated despite hydralazine and losartan therefore started the patient hydralazine p.o. 3 times daily and held metoprolol and nifedipine due to bradycardia. Patient continues to have a heart rate in the 40s. Labs are reviewed and are within normal findings repeat PTH is pending and TSH is 6.42 and free T41.14. Exam Vital Signs Temp Pulse Resp BP Pulse Ox O2 Del Method 97.0 F 47 L 18 182/104 H 98 Room Air 08/29/24 04:16 08/29/24 09:20 08/29/24 04:16 08/29/24 09:20 08/29/24 04:16 08/29/24 04:16 Narrative Exam GENERAL: A&Ox3 morbidly obese female pleasant to speak to NEURO: no focal neurological deficits HEENT: Atraumatic, Normocephalic. mucous membranes moist. Eyes open, symmetrical, & clear HEART: Normal Heart Sounds LUNGS: Clear to auscultation with no wheezing or crackles. ABDOMEN: soft, non-distended, non-tender, bowel sounds heard, no guarding or rebound tenderness SKIN: No Rash or ecchymoses EXTREMITIES: No edema, tenderness, able to move all 4 extremities, pedal pulses palpated Objective Labs 08/29/24 06:45 08/29/24 14:20 Labs: Laboratory Results - last 24 hr 08/28/24 08/28/24 08/28/24 16:44 17:02 21:08 WBC 6.2 RBC 3.83 L Hgb 11.7 L Hct 35.6 L MCV 93 MCH 30.5 MCHC 32.9 RDW Std Deviation 45.0 Plt Count 181 Neut % (Auto) 50 Lymph % (Auto) 39 Giles % (Auto) 6 Eos % (Auto) 4 Baso % (Auto) 1 Neut # (Auto) 3.1 Lymph # (Auto) 2.5 Giles # (Auto) 0.4 Eos # (Auto) 0.2 Baso # (Auto) 0.1 Immature Gran # (Auto) 0.01 H Absolute Nucleated RBC 0.00 Immature Gran % 0 Nucleated RBC % 0 PT 10.9 INR 1.0 APTT 27.1 Sodium 142 141 Potassium 4.1 4.0 Chloride 104 105 Carbon Dioxide 30.8 29.0 Anion Gap 7 7 BUN 11 11 Creatinine 0.9 0.7 Estim Creat Clear Calc 88.5 113.8 eGFR > 60 > 60 BUN/Creatinine Ratio 12 16 Glucose 90 97 Calculated Osmolality 282 280 Calcium 6.9 L 8.4 D Corrected Calcium 7.0 L 8.5 D Ionized Calcium 3.4 L Phosphorus Magnesium 1.9 Total Bilirubin 0.4 0.6 AST 28 31 ALT 44 46 Alkaline Phosphatase 80 78 Troponin I < 0.020 B-Natriuretic Peptide 218 H Total Protein 6.5 6.6 Albumin 3.9 3.9 Globulin 2.6 2.7 Albumin/Globulin Ratio 1.5 1.4 Lipase 31 TSH 6.42 H Free T4 1.14 Ur Collection Type Clean Catch Urine Color Lt-Yellow Urine Clarity Clear Urine pH 8.0 H Ur Specific [place] 1.020 Urine Protein Negative Urine Glucose (UA) Negative Urine Ketones Negative Urine Blood Negative Urine Nitrite Negative Urine Bilirubin Negative Urine Urobilinogen (Auto) Negative Ur Leukocyte Esterase Negative Urine RBC 4 H Urine WBC 2 Ur Squamous Epith Cells 6 H Urine Bacteria None 08/29/24 06:45 WBC 6.8 RBC 4.06 Hgb 12.3 Hct 37.0 MCV 91 MCH 30.3 MCHC 33.2 RDW Std Deviation 43.0 Plt Count 189 Neut % (Auto) 65 Lymph % (Auto) 26 Giles % (Auto) 5 Eos % (Auto) 3 Baso % (Auto) 1 Neut # (Auto) 4.4 Lymph # (Auto) 1.8 Giles # (Auto) 0.4 Eos # (Auto) 0.2 Baso # (Auto) 0.1 Immature Gran # (Auto) 0.01 H Absolute Nucleated RBC 0.00 Immature Gran % 0 Nucleated RBC % 0 PT INR APTT Sodium 140 Potassium 4.4 Chloride 102 Carbon Dioxide 30.0 Anion Gap 8 BUN 8 L Creatinine 0.8 Estim Creat Clear Calc 106.3 eGFR > 60 BUN/Creatinine Ratio 10 L Glucose 103 Calculated Osmolality 277 Calcium 7.9 L Corrected Calcium 7.9 L Ionized Calcium Phosphorus 5.3 H Magnesium 1.6 Total Bilirubin 0.7 AST 26 ALT 43 Alkaline Phosphatase 84 Troponin I B-Natriuretic Peptide Total Protein 6.9 Albumin 4.2 Globulin 2.7 Albumin/Globulin Ratio 1.6 Lipase TSH Free T4 Ur Collection Type Urine Color Urine Clarity Urine pH Ur Specific [place] Urine Protein Urine Glucose (UA) Urine Ketones Urine Blood Urine Nitrite Urine Bilirubin Urine Urobilinogen (Auto) Ur Leukocyte Esterase Urine RBC Urine WBC Ur Squamous Epith Cells Urine Bacteria Quality Measures Quality Measures none Assessment & Plan Assessment Current Active Medications: Generic Name Dose Route Start Last Admin Trade Name Freq PRN Reason Stop Dose Admin Acetaminophen 650 mg 08/28/24 22:56 Acetaminophen 325 Mg Tablet PO 09/27/24 22:55 Q6H PRN Fever >100 or pain 1-3 Aspirin 81 mg 08/29/24 09:00 08/29/24 09:19 Aspirin Ec 81 Mg Tabec PO 09/28/24 08:59 81 mg QDAY MASSIMO Administration Atropine Sulfate 1 mg 08/29/24 04:14 Atropine Sulf Inj 0.1 Mg/Ml Syr 10 Ml IV Q3MIN PRN for bradycardia 30 or below Calcitriol 0.5 mcg 08/29/24 09:00 08/29/24 09:19 Calcitriol 0.25 Mcg Capsule PO 09/28/24 08:59 0.5 mcg BID MASSIMO Administration Calcium Carbonate 1,200 mg 08/29/24 09:00 08/29/24 09:19 Calcium Carbonate 600 Mg Tablet PO 09/28/24 08:59 1,200 mg BID MASSIMO Administration Buprenorphine/ 0 ea 08/29/24 10:32 Naloxone 8-2 Mg Film SL 09/28/24 10:31 Q8H PRN OPIOID WITHDDRAWAL Duloxetine HCl 60 mg 08/28/24 23:20 08/28/24 23:50 Duloxetine Hcl 30 Mg Capsule PO 09/27/24 23:19 60 mg HS MASSIMO Administration Gabapentin 300 mg 08/28/24 23:10 08/29/24 05:07 Gabapentin 300 Mg Capsule PO 09/28/24 05:59 300 mg TID PRN Administration cramps and neuropathic pain Hydralazine HCl 5 mg 08/29/24 03:50 Hydralazine Inj 20 Mg/Ml Vial IV 09/28/24 03:49 Q4H PRN SBP above 180 Magnesium Sulfate 4 gm in 50 mls @ 12.5 mls/hr 08/29/24 08:40 08/29/24 09:19 Magnesium Sulfate Ivpb IV 08/29/24 12:39 12.5 mls/hr X1 ONE Administration Influenza Virus Vaccine Quadrival 0.5 ml 08/30/24 09:00 Influenza Virus Quadrivalent 0.5 Ml Syringe IMi 08/30/24 09:01 .ONCE ONE Levothyroxine Sodium 25 mcg 08/29/24 06:00 08/29/24 05:42 Levothyroxine Sodium 25 Mcg Tablet PO 09/28/24 05:59 25 mcg ACBR MASSIMO Administration Levothyroxine Sodium 112 mcg 08/29/24 06:00 08/29/24 05:42 Levothyroxine Sodium 112 Mcg Tablet PO 09/28/24 05:59 112 mcg ACBR MASSIMO Administration Losartan Potassium 50 mg 08/29/24 21:00 Losartan Potassium 25 Mg Tablet PO 09/28/24 20:59 BID MASSIMO Plan Ivis is a 48 y/o female with PMHx of hypothyroidism s/p total thyroidectomy [address] Olivas, HTN, palpitations s/p implantable loop recorder (Done in April 2024), Takotsubo stress-induced cardiomyopathy, HFpEF (EF ~55-60%, G1DD), depression, anxiety, obesity, ? COPD, and substance abuse (Meth) who is admitted for evaluation of symptomatic bradycardia and hypocalcemia. #Symptomatic sinus bradycardia #RBBB, chronic #HFpEF with EF 55-60%, G1DD #S/p Implantable loop recorder #Hx of Takotsubo stress induced cardiomyopathy DDx: Hypothyroidism, CAD, medication side effect -Pt has ongoing symptoms of palpitations, and diziness, pt has an implantable loop recorder since April -EKG shows sinus bradycardia with a rate in the 40s and right bundle branch block -BNP 218 -TSH 6.42, T4 normal -bradycardia could be secondary to hypocalcemia and medications (pt takes metoprolol and nifedipine) Echo from June 2024: Normal LV size and function. Stage I diastolic dysfunction. Estimated EF 55-60% Normal RV size and function. Mild MR. Trace TR. EF appeared normal but images of the apex are not clear. Recommended to follow-up echo with primary supervisory lifeguard in [place] with [employer] as it is unavailable at this institution. -Sees supervisory lifeguard Dr. Park in [place] Plan: -Keep magnesium and potassium above 2 and 4 respectively -Avoid beta-shira and any other medicines that can slow heart rate -Atropine 1 mg every 3 minutes as needed for bradycardia 30 or below -Cardio consulted, appreciate recommendations #Symptomatic chronic hypocalcemia likely secondary to #hypoparathyroidectomy #Status post total thyroidectomy, 2019 #Hx. Hypothyroidism -Patient is complaining of numbness, tingling around the mouth and hands and feet, Pt also has been experiencing cramps in LE, symptoms of tetany -Previous PTH is 22.7 in jun 2024, calcium 7.9 on admission Plan: -calcium chloride 10% and calcium carbonate 1200mg given x1 in the ED -repeat PTH pending -continue home levothyroxine 137mcg daily -calcium carbonate 1200mg PO BID -calcitorol 0.5mcg PO BID #History of CAD #Hypertensive emergency #Essential hypertension -Patient is symptomatic including chest pains possible headache, no signs of endorgan damage at this time -Home medication losartan 50mg BID, nifidipine and metoprolol -In the ED hydralazine 5 mg IVx2 is given -Cardiac cath records show mild LAD bridging Plan: -Do not correct systolic blood pressure more than 25% within the first 24 hours -Hydralazine 5 mg IV every 4 hours as needed for SBP above 180 -Continued home aspirin -Continue home medication losartan 50 mg by mouth every day -hydralazine 25mg PO TID #History of depression #History of anxiety #History of morbid obesity -resumed home suboxone with pain parameter of 5 -Resumed home Cymbalta 60 mg at bedtime #History of meth abuse #History of THC abuse -U tox shows marijuana -Patient has not used meth in over 20 years per patient Health Maintenance Disposition: telemetry DVT Prophylaxis: levonox 40mg SC Qday GI Prophylaxis: not indicated Diet: Cardiac Diet Lines: Peripheral lines Code status: Full Assessment and plan discussed with my senior resident & attending physician Dr. Dr. Preston (PGY-1)- Internal medicine resident Attending Provider Attestation/Addendum I have examined the patient, reviewed labs and imaging findings, discussed the case with the resident(s), and reviewed entered orders. I agree with the plan of care as outlined in this note, with these additional summaries/recommendations: Patient with symptomatic hypocalcemia likely the result of undertreated hypoparathyroidism after total thyroidectomy in 2019. She reports she was on 500 mg of calcium carbonate daily and calcitriol twice daily with several signs and symptoms consistent with hypocalcemia including tetany and perioral numbness as well as long QT interval and bradycardia. Adjusted patient's regimen to calcium carbonate 1200 twice daily and calcitriol 0.5 mcg twice daily. Consider increasing calcium carbonate to 3 times daily if persistent issues with hypocalcemia on current regimen. Continue to monitor BMP closely and keep patient on monitoring specialist for bradycardia. Freddie Fuentes MD
--- NOTE | 2024-08-29 13:04 | EKG_ITS ---
[facility] Test Date: 2024-08-29 Pat Name: LUZ MEZA [facility] Group Insurance Specialist: JARED : 1975 Requested By: Les Infante Order Number: [id number] Reading MD: Les Infante Measurements Intervals [place] Rate: 42 P: 41 MA: 175 QRS: 74 QRSD: 157 T: 26 QT: 572 QTc: 481 Interpretive Statements SINUS BRADYCARDIA RIGHT BUNDLE BRANCH BLOCK Compared to ECG 08/28/2024 20:07:09 Right bundle-branch block now present Intraventricular conduction delay no longer present /store/S0/[id number]/[id number].pdf
[2024-08-29] MEDS: hydrALAZINE HCL 25 MG TABLET PO ×2 (14:43→21:02)
[2024-08-29] MEDS: [UNRECOGNIZED DRUG - OTHER] SL (14:57)
[2024-08-29 15:17] LABS: Anion Gap 11 (7-16); BUN/Creatinine Ratio 11 Ratio (12-20); Blood Urea Nitrogen 9 mg/dL (9-23); Carbon Dioxide 28.1 mMol/L (20.0-31.0); Chloride 101 mMol/L (98-107); Creatinine (Component) 0.8 mg/dL (0.6-1.3); Estimated Creatinine Clearance 106.3 mL/min (>60); Glucose 96 mg/dL (74-106); Osmolality,Calculated 278 (275-295); Potassium 4.4 mMol/L (3.4-5.1); Sodium 140 mMol/L (136-145); eGFR > 60 See Note
--- NOTE | 2024-08-29 16:06 | PC.SS ---
This is 48-year-old, , female who presented to the ED for chest pain. Patient appeared alert and oriented to self, place and situation. Patient was pleasant, her mood and behavior were ordinary. Patient's thought process was logical and linear. Patient reported that she resides at home with her and two adult children. Patient is semi-independent with ADLs, no DME use. Patient's PCP is Micheline Becerril at [facility]. Patient appointed her , Kristofer, as her emergency contact. When medically clear, patient will return home, no transportation.
--- NOTE | 2024-08-29 16:45 | ESCONSULT_ITS ---
HPI Data of Consult Patient: known to practice within the last 3 years Consult date: 08/29/24 Requesting Physician: Lyn Tam MD Admitting Provider: Lyn Tam MD Attending Provider: Lyn Tam MD Primary Care Provider: NGOZI Cortez Consult Narrative Reason for consult: Sinus Bradycardia, Chest Pain History of present illness: Ms. Blackman is a 48-year-old female with past medical history of hypothyroidism status post thyroidectomy [address] Olivas, hypertension, palpitations status post implantable loop recorder (April 2024) Takotsubo stress-induced cardiomyopathy, HFpEF EF 55 to 60%, diastolic heart failure, grade 1 diastolic dysfunction, depression, anxiety, obesity, COPD, ?obstructive sleep apnea and substance use who presented to [facility] emergency department on 08/28/2024 with a chief complaint of muscle cramps in upper and lower extremities, weakness, fatigue and some chest pain. Patient reports that she has been having symptoms on and off for some time, reported that she did come to emergency department for similar complaints couple of days ago was found to have low calcium and was discharged on calcium supplements. She said that she has no improvement in her symptoms since calcium supplementation reports that her heart rate has been in the low 40s, complains of intermittent on and off chest pain, shortness of breath on exertion, dizziness and on and off palpitations intermittently. Patient complains of dizziness on and off randomly, does complain of some tinnitus at times, denies any postural changes and dizziness, does report dizziness on sudden movement of head. Patient complains of on and off intermittent nonradiating chest pain substernal which resolves on its own. Patient denies orthopnea, PND or diaphoresis, reports some shortness of breath on exertion attributes it to exercise tolerance. Patient overall reports feeling weak tired on a daily basis. Patient also complains of tingling on face at times. Patient follows Dr. Park in [place] as her internet architect, reports that she did have an appointment on July 30 post discharge in June 2024 but was unable to make to the appointment because of family emergency, reports her next appointment is on 06 September. Patient had extensive workup done outpatient for with internet architect including echo, cardiac cath which has been unremarkable. Had implantable loop recorder placed by Dr. Sena, is following for results. Patient did have past medical history of Takotsubo stress-induced cardiomyopathy with systolic heart failure with an EF of 45% in November 2023 at [facility], possible mild mid LAD bridging on cardiac catheterization but no overt CAD in December 2023. Repeat echocardiogram in June 2024 showed normal LV size and function, stage I diastolic dysfunction, EF 55 to 60%, normal RV size and function, mild MR, trace TR. Patient's echo images were not clear and was recommended to obtain echo with IV Definity as it was unavailable at this institution. Patient does have improved EF compared to previous echo. Patient was discharged on nifedipine 30 mg daily, metoprolol succinate 25 mg, losartan 50 mg twice daily, supplemental magnesium and calcium during previous hospitalization. Patient has been compliant with medications. Patient does report that she was referred to an spa therapist, has her first appointment on September 14, also reports following up with an chromosomal disorders counselor. Patient does report taking thyroid medication early in the morning, reports adequate compliance. ED course on initial presentation in ED patient's blood pressure 195/121, heart rate 52, respiratory rate 18, temp 98.6, O2 sat 99 on room air. ED labs significant for RBC 3.83, hemoglobin 11.7, platelet 181, sodium 142, potassium 4.1, chloride 104, venous CO2 30.8, BUN 11, creatinine 0.9, GFR more than 60, glucose 90, corrected calcium 7.0, ionized calcium 3.4, magnesium 1.9 liver panel unremarkable ED, BNP 218, TSH 6.42, free T4 1.14 Pending parathyroid and vitamin D levels Chest x-ray in ED showed moderate vascular congestion EKG from ED shows sinus bradycardia rate 41. Cardiology consulted for symptomatic sinus bradycardia concern. cc:: cc: Lyn Tam MD Review of Systems Review of Systems Narrative Review of Systems: ROS: -CONSTITUTIONAL: Denies weight loss, fever and chills. -HEENT: Denies changes in vision and hearing. Positive for tinnitus -RESPIRATORY: Positive for SOB on exertion and denies cough. -CV: Positive for palpitations and Chest Pain. -GI: Denies abdominal pain, nausea, vomiting,constipation and diarrhea. -: Denies dysuria and urinary frequency. -MSK: Denies myalgia and joint pain. -SKIN: Denies rash and pruritus. -NEUROLOGICAL: Denies headache and syncope. Positive for dizziness -PSYCHIATRIC: Denies recent changes in mood. Denies anxiety and depression. Past Medical History Past Medical History Comments PMH COMMENT: PMH: Positive for hypothyroidism status post thyroidectomy [address] 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 Patient is on Suboxone, has history of opiate use urine tox screen positive for marijuana -Martial Status: lives with kids and has been Family History: Family history significant for cardiac disease, reports 2 brothers had heart disease and in 50s, history of pacemaker placement in both sisters Exam Vital Signs Temp Pulse Resp BP Pulse Ox O2 Del Method 97.0 F 49 L 18 188/92 H 98 Room Air 08/29/24 13:40 08/29/24 14:43 08/29/24 13:40 08/29/24 14:43 08/29/24 13:40 08/29/24 13:40 Narrative Exam Physical Exam General: Awake and in no acute distress. Conversational and non-toxic appearing. HEENT: Normocephalic, atraumatic, mucous membranes moist. Heart: Regular rate and rhythm, no murmurs. Lungs: Clear to auscultation with no wheezing or crackles. Abdomen: Soft, obese, nondistended, nontender, positive bowel sounds. ?No guarding or rebound tenderness. Neurologic: Alert and oriented x3, no gross neurological deficit, and patient able to move all 4 extremities. Extremities: No edema. Skin: No rash or ecchymoses. Results Labs 08/30/24 05:15 08/30/24 05:15 Labs: Short CBC 08/28/24 08/29/24 Range/Units 16:44 06:45 WBC 6.2 6.8 (3.6-11.0) Thou/mm3 Hgb 11.7 L 12.3 (12.0-16.0) g/dL Hct 35.6 L 37.0 (36.0-46.0) % Plt Count 181 189 (140-440) Thou/mm3 BMP 08/28/24 08/28/24 08/29/24 16:44 21:08 06:45 Sodium 142 141 140 Potassium 4.1 4.0 4.4 Chloride 104 105 102 Carbon Dioxide 30.8 29.0 30.0 BUN 11 11 8 L Creatinine 0.9 0.7 0.8 Glucose 90 97 103 Calcium 6.9 L 8.4 D 7.9 L 08/29/24 14:20 Sodium 140 Potassium 4.4 Chloride 101 Carbon Dioxide 28.1 BUN 9 Creatinine 0.8 Glucose 96 Calcium 8.0 L Cardiac Enzymes 08/28/24 Range/Units 21:08 Troponin I < 0.020 (0.0-0.045) ng/mL Liver Function 08/28/24 08/28/24 08/29/24 Range/Units 16:44 21:08 06:45 Total Bilirubin 0.4 0.6 0.7 (0.3-1.2) mg/dL AST 28 31 26 (0-34) U/L ALT 44 46 43 (10-49) U/L Alkaline Phosphatase 80 78 84 (46-116) U/L Albumin 3.9 3.9 4.2 (3.5-5.0) gm/dL Urine 08/28/24 Range/Units 17:02 Urine Color Lt-Yellow (Lt Yel-Yel) Urine Clarity Clear (Clear/Hazy) Urine pH 8.0 H (5.0-7.0) Ur Specific [place] 1.020 (1.001-1.035) Urine Protein Negative (Neg - Trace) Urine Glucose (UA) Negative (Negative) Quality Measures Quality Measures none Medications Home Medications and Allergies Home Medications ?Medication ?Instructions ?Recorded ?Confirmed ?Type buprenorphine 8 mg-naloxone 2 mg 1 film buccal 3XD 01/0708/29/24 History sublingual film gabapentin 300 mg capsule 300 mg PO 3XD 06/22/2408/29 History levothyroxine 137 mcg tablet 137 mcg PO 1XD 06/22/24 0 08/29/24 History aspirin 81 mg tablet 81 mg PO QDAY 06/23/2408/29 History calcium carbonate 500 mg PO DAILY 06/23/24 History duloxetine 60 mg capsule,delayed 60 mg PO DAILY 08/29/24 History release magnesium oxide 400 mg (241.3 mg 400 mg PO BID 5 08/29/24 History magnesium) tablet ramelteon 8 mg tablet 8 mg PO HS PRN Sleep 5 08/29/24 History losartan 50 mg tablet 50 mg PO BID 08/28/24 History cholecalciferol (vitamin D3) 125 125 mcg PO BID 08/29/24 History mcg (5,000 unit) capsule Allergies Allergy/AdvReac Type Severity Reaction Status Date / Time No Known Allergies Allergy Verified 08/28/24 16:01 Visit Medications Acetaminophen (Acetaminophen 325 Mg Tablet) 650 mg PO Q6H PRN PRN Reason: Fever >100 or pain 1-3 Stop: 09/27/24 22:55 Aspirin (Aspirin Ec 81 Mg Tabec) 81 mg PO QDAY [facility] Stop: 09/28/24 08:59 Last Admin: 08/29/24 09:19 Dose: 81 mg Atropine Sulfate (Atropine Sulf Inj 0.1 Mg/Ml Syr 10 Ml) 1 mg IV Q3MIN PRN PRN Reason: for bradycardia 30 or below Calcitriol (Calcitriol 0.25 Mcg Capsule) 0.5 mcg PO BID [facility] Stop: 09/28/24 08:59 Last Admin: 08/29/24 09:19 Dose: 0.5 mcg Calcium Carbonate (Calcium Carbonate 600 Mg Tablet) 1,200 mg PO BID [facility] Stop: 09/28/24 08:59 Last Admin: 08/29/24 09:19 Dose: 1,200 mg Patient Own Medication 1 ea/IV Miscellaneous Supplies 1 btl 0 ea SL Q8H PRN PRN Reason: OPIOID WITHDDRAWAL Stop: 09/28/24 10:31 Last Admin: 08/29/24 14:57 Dose: 1 film Duloxetine HCl (Duloxetine Hcl 30 Mg Capsule) 60 mg PO HS [facility] Stop: 09/27/24 23:19 Last Admin: 08/28/24 23:50 Dose: 60 mg Enoxaparin Sodium (Enoxaparin Sod Inj 40 Mg/0.4 Ml Syringe) 40 mg SC QDAY [facility] Stop: 09/12/24 15:14 Gabapentin (Gabapentin 300 Mg Capsule) 300 mg PO TID PRN PRN Reason: cramps and neuropathic pain Stop: 09/28/24 05:59 Last Admin: 08/29/24 14:44 Dose: 300 mg Hydralazine HCl (Hydralazine Inj 20 Mg/Ml Vial) 5 mg IV Q4H PRN PRN Reason: SBP above 180 Stop: 09/28/24 03:49 Hydralazine HCl (Hydralazine Hcl 25 Mg Tablet) 25 mg PO BID [facility] Stop: 09/28/24 13:14 Last Admin: 08/29/24 14:43 Dose: 25 mg Influenza Virus Vaccine Quadrival (Influenza Virus Quadrivalent 0.5 Ml Syringe) 0.5 ml IMi .ONCE ONE Stop: 08/30/24 09:01 Levothyroxine Sodium (Levothyroxine Sodium 25 Mcg Tablet) 25 mcg PO ACBR [facility] Stop: 09/28/24 05:59 Last Admin: 08/29/24 05:42 Dose: 25 mcg Levothyroxine Sodium (Levothyroxine Sodium 112 Mcg Tablet) 112 mcg PO ACBR [facility] Stop: 09/28/24 05:59 Last Admin: 08/29/24 05:42 Dose: 112 mcg Losartan Potassium (Losartan Potassium 25 Mg Tablet) 50 mg PO BID [facility] Stop: 09/28/24 20:59 Discontinued Medications Calcium Carbonate (Calcium Carbonate 600 Mg Tablet) 1,200 mg PO X1 ONE Stop: 08/28/24 17:16 Last Admin: 08/28/24 18:19 Dose: 1,200 mg Buprenorphine/ (Naloxone 8-2 Mg Film) 0 ea SL Q8H PRN PRN Reason: OPIOID WITHDDRAWAL Stop: 09/28/24 10:31 Hydralazine HCl (Hydralazine Inj 20 Mg/Ml Vial) 5 mg IV X1 ONE Stop: 08/28/24 23:10 Last Admin: 08/28/24 23:49 Dose: 5 mg Hydralazine HCl (Hydralazine Inj 20 Mg/Ml Vial) 5 mg IV X1 ONE Stop: 08/29/24 03:50 Last Admin: 08/29/24 04:59 Dose: 5 mg Sodium Chloride (Ns) 1,000 mls @ 100 mls/hr IV .Q10H [facility] Stop: 09/27/24 16:44 Last Admin: 08/29/24 05:01 Dose: 100 mls/hr Calcium Chloride 10 ml/ (Dextrose) 110 mls @ 110 mls/hr IV X1 ONE Stop: 08/28/24 18:14 Last Infusion: 08/28/24 19:20 Dose: Infused Acetaminophen (Ofirmev Inj) 1,000 mg in 100 mls @ 250 mls/hr IV X1 ONE Stop: 08/28/24 19:10 Last Infusion: 08/28/24 19:59 Dose: Infused Magnesium Sulfate (Magnesium Sulfate Ivpb) 4 gm in 50 mls @ 12.5 mls/hr IV X1 ONE Stop: 08/29/24 12:39 Last Admin: 08/29/24 09:19 Dose: 12.5 mls/hr Losartan Potassium (Losartan Potassium 25 Mg Tablet) 50 mg PO QDAY [facility] Stop: 09/28/24 08:59 Last Admin: 08/29/24 09:20 Dose: 50 mg Assessment & Plan Plan Assessment and Plan: Summary: Ms. Blackman is a 48-year-old female with past medical history of hypothyroidism status post thyroidectomy [address] Olivas, hypertension, palpitations status post implantable loop recorder (April 2024) Takotsubo stress-induced cardiomyopathy, HFpEF EF 55 to 60%, diastolic heart failure, grade 1 diastolic dysfunction, depression, anxiety, obesity, COPD, ?obstructive sleep apnea and substance use who presented to [facility] emergency department on 08/28/2024 with a chief complaint of muscle cramps in upper and lower extremities, weakness, fatigue and some chest pain. Cardiology consulted for concern of symptomatic sinus bradycardia. #Sinus bradycardia #Dizziness, palpitations #Hypocalcemia #QT prolongation Patient complains of on and off symptoms like muscle cramps in upper and lower extremities, weakness fatigue dizziness and chest pain on and off. In ED troponin negative, BNP 218 corrected calcium 7.0, ionized calcium 3.4 Patient did have implantable loop recorder placed by Dr. Sena, follows Dr. Park internet architect in [place], did not see cardiology since last discharge in June 2024, did have an appointment in July was unable to go because of family emergency. Patient had a cardiac catheterization done in December 2023 at [facility] showed possible Takotsubo stress-induced cardiomyopathy with systolic heart failure EF 45%. Repeat echocardiogram December 2024 shows showed normal LV size and function, stage I diastolic dysfunction, EF 55 to 60%, normal RV size and function, mild MR, trace TR. Patient's echo images were not clear and was recommended to obtain echo with IV Definity as it was unavailable at this institution. EKG in the emergency department shows sinus bradycardia rate 41. Patient's TSH 6.42, free T41.14 PTH levels in June 22.7, normal, 25 OH vitamin D levels 23.1 in June Recommendations: -Patient was discharged in June on metoprolol succinate 25 and nifedipine 30 mg daily, hold beta-blockers and calcium channel blockers due to concern of sinus bradycardia avoid other medications that can contribute to bradycardia. -Patient has good chronotropic response, on walking today patient's heart rate improved to 63 from 43, patient will need outpatient follow-up to assess loop recorder data -For blood pressure control would recommend losartan-hydrochlorothiazide combination pill outpatient, start patient on hydrochlorothiazide 12.5 mg while patient is inpatient to assess response. -Patient is currently on losartan 50 mg twice daily, change to 100 mg daily to improve compliance -Agree with hydralazine for blood pressure control, can uptitrate dose as needed. -Patient needs close outpatient cardiology follow-up -Follow parathyroid and vitamin D levels, patient is scheduled to follow-up with endocrinology outpatient -Keep magnesium more than 2 and potassium more than 4, patient should continue magnesium supplements outpatient due to QT prolongation -Continue calcium carbonate 1200 mg twice daily and calcitriol 0.5 mg twice daily, improvement in calcium noted [facility] 08/25 #Heart failure with preserved ejection fraction, EF 55 to 60% #Diastolic heart failure, grade 1 diastolic dysfunction #Takotsubo syndrome, by history Patient had a cardiac catheterization done in December 2023 at [facility] showed possible Takotsubo stress-induced cardiomyopathy with systolic heart failure EF 45%. Repeat echocardiogram December 2024 shows showed normal LV size and function, stage I diastolic dysfunction, EF 55 to 60%, normal RV size and function, mild MR, trace TR. Patient's echo images were not clear and was recommended to obtain echo with IV Definity as it was unavailable at this institution. Did have moderate vascular congestion on chest x-ray during this admission, BNP 218, does have some shortness of breath on exertion. Will avoid Lasix due to hypocalcemia, patient will benefit from hydrochlorothiazide. Will hold beta-blockers in setting of sinus bradycardia Follow outpatient cardiology #Intermittent typical chest pain Patient does have chest pain, does have associated palpitations, underlying significant hypocalcemia causing symptoms. Troponin negative, EKG showed no acute ST-T T changes Patient had extensive outpatient workup, last cardiac cath from 2023 is negative for coronary artery disease Patient's chest pain can likely be secondary to palpitations due to hypocalcemia, should follow outpatient with cardiology for further workup. #Hypertension Hold metoprolol and nifedipine in setting of sinus bradycardia. Currently on hydralazine 25 twice daily and losartan 50 twice daily Recommendations: -Recommend changing losartan to 100 daily -Recommend starting patient on hydrochlorothiazide 12.5 mg daily while inpatient and can discharge patient on losartan hydrochlorothiazide combination pill -Continue hydralazine, can uptitrate as needed for blood pressure control #Hypothyroidism #Status post thyroidectomy, 2019 TSH 6.42, free T4 1.14. Patient is on levothyroxine 137 mcg daily, continue reports good compliance outpatient #?Obstructive sleep apnea Patient snores at night, did have sleep study in the past, reports never following up for result, not on any CPAP. Patient will benefit from sleep study outpatient #Depression #Anxiety #Substance use -Management per primary team Thank you for the consult and allowing to participate in the care of the patient. Cardiology will continue to follow. Case discussed with Attending Dr. Robert. Yenni Lainez PGY1 Disclaimer: This note was dictated by speech recognition. Minor errors in slip seat coverer may be present due to voice recognition software. Attending Provider Attestation/Addendum I have personally seen and examined the patient separately on the above date of service and discussed the plan of care with the resident. I reviewed the resident Dr. Yenni Lainez consultation progress note and agree with the resident findings and plan in the note above and have also edited the documentation to reflect my findings and plan. Patient known to me from one of the previous admissions. A 48-year-old female with a past medical history of Takotsubo stress-induced cardiomyopathy with HFpEF with diastolic dysfunction stage I on last echo with an EF of 55 to 60% in June 2024, history of mild systolic heart failure with an EF of around 45% in November 2023 at [facility], possible mild myocardial mid LAD bridging on cardiac cath but no overt CAD December 2023, palpitations with implantable recorder placed by her internet architect Dr. Park in January 2024, morbid obesity, essential hypertension, hypothyroidism, depression, anxiety, history of cholelithiasis, asthma, COPD, current smoker, history of scoliosis, alcohol dependence, history of marijuana use presented to the emergency department for further evaluation of muscle cramps in her upper and lower extremities, weakness, fatigue and some chest pain. Patient also was noted to be bradycardic in the 40s and complained of some intermittent chest pain which appears to be atypical. Also complained of shortness of breath dizziness as well as of palpitations.. Patient apparently did follow-up with Dr. Park in July. Dr. Garcia in [place] also follows up with her implantable loop recorder. Unclear of the results for now. During last admission patient was discharged on metoprolol XL as her heart rate was 60 in the normal range and patient had mild myocardial bridging based on the cardiac catheterization. At approximately discontinued but patient is on nifedipine XL. During my examination today she denied any Chest pain or chest pressure and is feeling better. In the emergency department patient blood pressure was elevated from 95 to 1.5 mmHg heart rate of 52/min respiratory rate of 18 afebrile sats of 99% on room air. BUN of 11, creatinine of 0.9 corrected calcium 7.0 and ionized calcium 3.4. Magnesium was 1.9 normal liver function test, BNP of 218, TSH 6.42 and free T4 normal at 1.14. Parathyroid and vitamin D levels were pending. Chest x-ray with some vascular congestion but EKG showed sinus bradycardia at 41 She has been having on and off chest pains for the last year along with some palpitations for which she had extensive workup done at [facility] by primary internet architect Dr. Park. Patient apparently had a Holter monitoring and eventually a loop recorder was placed in January 2024. I reviewed the records from [facility] and it showed that patient did have mild systolic congestive heart failure with an EF of 45% suggestive of possible Takotsubo syndrome and patient did have a left heart cardiac catheterization did not show any overt CAD but there was questionable mild myocardial bridging that was noted. Cardiology now consulted for the bradycardia. 1. Sinus bradycardia 2. Hypocalcemia recurrent 3. QT prolongation 4. Dizziness and palpitations 5. Atypical chest pain 6. HFpEF-previous history of mild systolic congestive heart failure with an EF of 45% 7. History of Takotsubo syndrome 8. Essential hypertension-uncontrolled 9. Hypothyroidism status post thyroidectomy 10. Obstructive sleep apnea with history of obesity 11. Depression and anxiety 12. Substance abuse EKG reviewed and showed sinus bradycardia and QTc is slightly prolonged but patient does have hypocalcemia on presentation. Patient states that she does have a history of long QT syndrome. She is being followed by EP doctors in [place] Dr. Beckett and has a loop recorder in place placed by him. On passive exercise and walking the patient patient does have good heart rate response up to the 60s indicating good chronotropic response. Recommend to stop any beta-blockers or calcium channel blockers except for amlodipine if required for blood pressure control. No further workup required for the sinus bradycardia as patient has good chronotropic response and recommended to follow-up with her internet architect seen in [place] Uncontrolled hypertension-patient is on losartan 100 mg once daily and added hydrochlorothiazide to the regimen. Also started on hydralazine 25 mg every 8 hours and can be uptitrated to 100 mg every 8 hours. If blood pressure continues to be elevated please start amlodipine 2.5 mg once daily and continue to uptitrate to 10 mg once daily. Do not give any other retractions or blockers or beta-blockers at the present point of time. Regarding her chest pain chest pain is completely atypical and that she did have a cardiac cath in 2023 showing normal coronaries without any evidence of any significant obstruction except for possible mild myocardial bridging. History of HFpEF with an last EF of 55 to 60% previously had mild systolic congestive heart failure with an EF of around 45%. Patient is mildly fluid overloaded on exam with mildly elevated BNP and some vascular congestion on the chest x-ray. Recommend to start the patient on hydralazine 12.5 mg once daily and uptitrated to 25 mg once daily as it can also help the patient with the hypocalcemia. Avoid Lasix in view of possible hypocalcemia with it. Strict input output elevation 2 g sodium diet. Patient does have recurrent hypocalcemia without any clear etiology and TSH and free T4 appear to be in the normal range. Parathyroid hormone levels are pending. Patient should be on calcium supplements at home along with some magnesium supplements. Primary team continuing the workup for the hypocalcemia. Patient counseled against any kind of substance abuse and recommended to lose weight given her obesity and obstructive sleep apnea which could be contributing to her shortness of breath. Management of rest of the medical conditions as per primary team. Thank you for the consult and allowing me to participate in the care of the patient. Cardiology will continue to follow. Asher Robert M.D. Interventional Cardiology
[2024-08-29] MEDS: ENOXAPARIN SOD INJ 40 MG/0.4 ML SYRINGE SC (16:54)
[2024-08-29] MEDS: ACETAMINOPHEN 325 MG TABLET 650 MG PO (19:33)
[2024-08-29 20:06] LABS: Magnesium 1.9 mg/dL (1.6-2.6)
[2024-08-30] VITALS (14 sets, daily range): BP systolic 133–198; BP diastolic 62–114; PULSE 41–109; RESP 15–19; TEMP 36–36.6; O2SAT 96–99
[2024-08-30] MEDS: ACETAMINOPHEN 325 MG TABLET 650 MG PO ×3 (03:44→18:03)
[2024-08-30 04:09] LABS: Parathyroid Hormone Intact 17.3 pg/ml (18.5-88.0)
[2024-08-30 04:13] LABS: Vitamin D 25 Hydroxy Total 55.8 ng/mL (7.3-40.2)
[2024-08-30] MEDS: LEVOTHYROXINE SODIUM 25 MCG TABLET PO (05:08)
[2024-08-30] MEDS: LEVOTHYROXINE SODIUM 112 MCG TABLET PO (05:08)
[2024-08-30 06:24] LABS: Basophils # (Auto) 0.1 Thou/mm3 (0.0-0.2); Basophils % (Auto) 1 % (0-2.5); Eosinophils # (Auto) 0.2 Thou/mm3 (0.0-0.5); Eosinophils % (Auto) 3 % (0-10); Hematocrit 38.1 % (36.0-46.0); Hemoglobin 12.6 g/dL (12.0-16.0); Immature Granulocytes % (Auto) 0 % (0-0); Immature Granulocytes Auto 0.01 Thou/mm3 (0.00-0.00); Lymphocytes # (Auto) 1.8 Thou/mm3 (1.0-4.8); Lymphocytes % (Auto) 32 % (10-50); Mean Corpuscular HGB Conc 33.1 g/dl (31.0-37.0); Mean Corpuscular Hemoglobin 30.2 pg (25.0-35.0); Mean Corpuscular Volume 91 fL (80-100); Monocytes # (Auto) 0.4 Thou/mm3 (0.0-0.8); Monocytes % (Auto) 6 % (0-12); Neutrophils # (Auto) 3.4 Thou/mm3 (1.8-7.7); Neutrophils % (Auto) 58 % (37-80); Nucleated Red Blood Cell % 0 /100 WBC (0); Platelet Count 191 Thou/mm3 (140-440); RDW Standard Deviation 43.1 fL (36.4-46.3); Red Blood Count 4.17 Miln/mm3 (4.00-5.20); White Blood Count 5.8 Thou/mm3 (3.6-11.0)
[2024-08-30 06:55] LABS: Alanine Aminotransferase 33 U/L (10-49); Albumin, Serum 3.8 gm/dL (3.5-5.0); Albumin/Globulin Ratio 1.4 (1.2-2.2); Alkaline Phosphatase 80 U/L (46-116); Anion Gap 11 (7-16); Aspartate Amino Transferase 14 U/L (0-34); BUN/Creatinine Ratio 11 Ratio (12-20); Bilirubin,Total 0.8 mg/dL (0.3-1.2); Blood Urea Nitrogen 9 mg/dL (9-23); Calcium 8.3 mg/dL (8.3-10.6); Calcium (Corrected) 8.5 mg/dL (8.5-10.1); Carbon Dioxide 26.7 mMol/L (20.0-31.0); Chloride 103 mMol/L (98-107); Creatinine (Component) 0.8 mg/dL (0.6-1.3); Estimated Creatinine Clearance 106.1 mL/min (>60); Globulin 2.8 gm/dL (2.3-3.5); Glucose 93 mg/dL (74-106); Magnesium 2.5 mg/dL (1.6-2.6); Osmolality,Calculated 279 (275-295); Phosphorous 6.5 mg/dL (2.4-5.1); Potassium 3.6 mMol/L (3.4-5.1); Sodium 141 mMol/L (136-145); Total Protein 6.6 gm/dL (5.7-8.2); eGFR > 60 See Note
[2024-08-30] MEDS: hydroCHLOROthiazide 12.5 MG CAPSULE PO (08:45)
[2024-08-30] MEDS: CALCIUM CARBONATE 600 MG TABLET 1200 MG PO ×2 (08:45→20:18)
[2024-08-30] MEDS: CALCITRIOL 0.25 mCg CAPSULE 0.5 MCG PO ×2 (08:45→20:18)
[2024-08-30] MEDS: ENOXAPARIN SOD INJ 40 MG/0.4 ML SYRINGE SC (08:46)
[2024-08-30] MEDS: LOSARTAN POTASSIUM 25 MG TABLET 100 MG PO (08:46)
[2024-08-30] MEDS: ASPIRIN EC 81 MG TABEC PO (08:46)
[2024-08-30] MEDS: POTASSIUM CHLORIDE 20 mEq TABCR 40 MEQ PO (08:47)
[2024-08-30] MEDS: hydrALAZINE INJ 20 MG/ML VIAL 5 MG IV ×2 (08:47→20:37)
[2024-08-30] MEDS: GABAPENTIN 300 MG CAPSULE PO ×2 (09:20→20:37)
[2024-08-30] MEDS: DULoxetine HCL 30 MG CAPSULE 60 MG PO (09:20)
[2024-08-30] MEDS: [UNRECOGNIZED DRUG - OTHER] SL (09:21)
[2024-08-30] MEDS: SEVELAMER CARBONATE 800 MG TABLET PO (14:25)
[2024-08-30] MEDS: hydrALAZINE HCL 25 MG TABLET PO ×2 (14:25→22:47)
--- NOTE | 2024-08-30 15:40 | ESPR_ITS ---
Documentation for date of: 08/30/24 Subjective Subjective Interval history: Patient seen and examined at bedside. Patient has good chronotropic response for underlying bradycardia, not a candidate for pacemaker placement currently. Calcium level has improved to 8.5, patient has hyperphosphatemia. Pending PTH and vitamin D levels. Exam Vital Signs Temp Pulse Resp BP Pulse Ox O2 Del Method 97.5 F 50 L 19 157/95 H 96 Room Air 08/30/24 11:57 08/30/24 14:25 08/30/24 11:57 08/30/24 14:25 08/30/24 11:57 08/30/24 11:57 Narrative Exam Physical Exam General: Awake and in no acute distress. Conversational and non-toxic appearing. HEENT: Normocephalic, atraumatic, mucous membranes moist. Heart: Regular rate and rhythm, no murmurs. Lungs: Clear to auscultation with no wheezing or crackles. Abdomen: Soft, obese, nondistended, nontender, positive bowel sounds. ?No guarding or rebound tenderness. Neurologic: Alert and oriented x3, no gross neurological deficit, and patient able to move all 4 extremities. Extremities: No edema. Skin: No rash or ecchymoses. Objective Labs 08/30/24 05:15 08/30/24 05:15 Labs: Laboratory Results - last 24 hr 08/28/24 08/29/24 08/30/24 16:44 19:06 05:15 WBC 5.8 RBC 4.17 Hgb 12.6 Hct 38.1 MCV 91 MCH 30.2 MCHC 33.1 RDW Std Deviation 43.1 Plt Count 191 Neut % (Auto) 58 Lymph % (Auto) 32 [place] % (Auto) 6 Eos % (Auto) 3 Baso % (Auto) 1 Neut # (Auto) 3.4 Lymph # (Auto) 1.8 [place] # (Auto) 0.4 Eos # (Auto) 0.2 Baso # (Auto) 0.1 Immature Gran # (Auto) 0.01 H Absolute Nucleated RBC 0.00 Immature Gran % 0 Nucleated RBC % 0 Sodium 141 Potassium 3.6 D Chloride 103 Carbon Dioxide 26.7 Anion Gap 11 BUN 9 Creatinine 0.8 Estim Creat Clear Calc 106.1 eGFR > 60 BUN/Creatinine Ratio 11 L Glucose 93 Calculated Osmolality 279 Calcium 8.3 Corrected Calcium 8.5 Phosphorus 6.5 H Magnesium 1.9 2.5 Total Bilirubin 0.8 AST 14 ALT 33 Alkaline Phosphatase 80 Total Protein 6.6 Albumin 3.8 Globulin 2.8 Albumin/Globulin Ratio 1.4 25-OH Vitamin D Total 55.8 H PTH Intact 17.3 L Quality Measures Quality Measures none Assessment & Plan Assessment Current Active Medications: Generic Name Dose Route Start Last Admin Trade Name Freq PRN Reason Stop Dose Admin Acetaminophen 650 mg 08/28/24 22:56 08/30/24 12:03 Acetaminophen 325 Mg Tablet PO 09/27/24 22:55 650 mg Q6H PRN Administration Fever >100 or pain 1-3 Aspirin 81 mg 08/29/24 09:00 08/30/24 08:46 Aspirin Ec 81 Mg Tabec PO 09/28/24 08:59 81 mg QDAY MASSIMO Administration Atropine Sulfate 1 mg 08/29/24 04:14 Atropine Sulf Inj 0.1 Mg/Ml Syr 10 Ml IV Q3MIN PRN for bradycardia 30 or below Calcitriol 0.5 mcg 08/29/24 09:00 08/30/24 08:45 Calcitriol 0.25 Mcg Capsule PO 09/28/24 08:59 0.5 mcg BID MASSIMO Administration Calcium Carbonate 1,200 mg 08/29/24 09:00 08/30/24 08:45 Calcium Carbonate 600 Mg Tablet PO 09/28/24 08:59 1,200 mg BID MASSIMO Administration Patient Own Medication 1 ea/ 0 ea 08/29/24 13:06 08/30/24 09:21 IV Miscellaneous Supplies 1 SL 09/28/24 10:31 1 film btl Q8H PRN Administration OPIOID WITHDDRAWAL Duloxetine HCl 60 mg 08/30/24 09:00 08/30/24 09:20 Duloxetine Hcl 30 Mg Capsule PO 09/29/24 08:59 60 mg DAILY MASSIMO Administration Enoxaparin Sodium 40 mg 08/29/24 15:15 08/30/24 08:46 Enoxaparin Sod Inj 40 Mg/0.4 Ml Syringe SC 09/12/24 15:14 40 mg QDAY MASSIMO Administration Gabapentin 300 mg 08/28/24 23:10 08/30/24 09:20 Gabapentin 300 Mg Capsule PO 09/28/24 05:59 300 mg TID PRN Administration cramps and neuropathic pain Hydralazine HCl 5 mg 08/29/24 03:50 08/30/24 08:47 Hydralazine Inj 20 Mg/Ml Vial IV 09/28/24 03:49 5 mg Q4H PRN Administration SBP above 180 Hydralazine HCl 25 mg 08/30/24 14:00 08/30/24 14:25 Hydralazine Hcl 25 Mg Tablet PO 09/29/24 13:59 25 mg TID MASSIMO Administration Hydrochlorothiazide 12.5 mg 08/30/24 09:00 08/30/24 08:45 Hydrochlorothiazide 12.5 Mg Capsule PO 09/29/24 08:59 12.5 mg QDAY MASSIMO Administration Levothyroxine Sodium 25 mcg 08/29/24 06:00 08/30/24 05:08 Levothyroxine Sodium 25 Mcg Tablet PO 09/28/24 05:59 25 mcg ACBR MASSIMO Administration Levothyroxine Sodium 112 mcg 08/29/24 06:00 08/30/24 05:08 Levothyroxine Sodium 112 Mcg Tablet PO 09/28/24 05:59 112 mcg ACBR MASSIMO Administration Losartan Potassium 100 mg 08/30/24 09:00 08/30/24 08:46 Losartan Potassium 25 Mg Tablet PO 09/29/24 08:59 100 mg QDAY MASSIMO Administration Plan Assessment and Plan: Summary: Ms. Blackman is a 48-year-old female with past medical history of hypothyroidism status post thyroidectomy [address] Olivas, hypertension, palpitations status post implantable loop recorder (April 2024) Takotsubo stress-induced cardiomyopathy, HFpEF EF 55 to 60%, diastolic heart failure, grade 1 diastolic dysfunction, depression, anxiety, obesity, COPD, ?obstructive sleep apnea and substance use who presented to [facility] emergency department on 08/28/2024 with a chief complaint of muscle cramps in upper and lower extremities, weakness, fatigue and some chest pain. Cardiology consulted for concern of symptomatic sinus bradycardia. #Sinus bradycardia #Dizziness, palpitations #Hypocalcemia #QT prolongation Patient complains of on and off symptoms like muscle cramps in upper and lower extremities, weakness fatigue dizziness and chest pain on and off. In ED troponin negative, BNP 218 corrected calcium 7.0, ionized calcium 3.4 Patient did have implantable loop recorder placed by Dr. Sena, follows Dr. Park warehouse distribution associate in [place], did not see cardiology since last discharge in June 2024, did have an appointment in July was unable to go because of family emergency. Patient had a cardiac catheterization done in December 2023 at [facility] showed possible Takotsubo stress-induced cardiomyopathy with systolic heart failure EF 45%. Repeat echocardiogram December 2024 shows showed normal LV size and function, stage I diastolic dysfunction, EF 55 to 60%, normal RV size and function, mild MR, trace TR. Patient's echo images were not clear and was recommended to obtain echo with IV Definity as it was unavailable at this institution. EKG in the emergency department shows sinus bradycardia rate 41. Patient's TSH 6.42, free T41.14 PTH levels in July 07.7, normal, 25 [place] vitamin D levels 23.1 in June Recommendations: -Hold beta-blockers and calcium channel blockers due to concern of sinus bradycardia avoid other medications that can contribute to bradycardia. -Patient has good chronotropic response, on walking today patient's heart rate improved to 63 from 43, patient will need outpatient follow-up to assess loop recorder data -Continue losartan 100 mg daily, hydrochlorothiazide 12.5 mg daily, uptitrate hydrochlorothiazide to 25 mg in a.m. -Agree with hydralazine for blood pressure control, can uptitrate dose as needed. -Patient needs close outpatient cardiology follow-up -Follow parathyroid and vitamin D levels, patient is scheduled to follow-up with endocrinology outpatient -Keep magnesium more than 2 and potassium more than 4, patient should continue magnesium supplements outpatient due to QT prolongation -Continue calcium carbonate 1200 mg twice daily and calcitriol 0.5 mg twice daily, improvement in calcium noted [facility] 08/25 #Heart failure with preserved ejection fraction, EF 55 to 60% #Diastolic heart failure, grade 1 diastolic dysfunction #Takotsubo syndrome, by history Patient had a cardiac catheterization done in December 2023 at [facility] showed possible Takotsubo stress-induced cardiomyopathy with systolic heart failure EF 45%. Repeat echocardiogram December 2024 shows showed normal LV size and function, stage I diastolic dysfunction, EF 55 to 60%, normal RV size and function, mild MR, trace TR. Patient's echo images were not clear and was recommended to obtain echo with IV Definity as it was unavailable at this institution. Did have moderate vascular congestion on chest x-ray during this admission, BNP 218, does have some shortness of breath on exertion. Will avoid Lasix due to hypocalcemia, patient will benefit from hydrochlorothiazide. Will hold beta-blockers in setting of sinus bradycardia Follow outpatient cardiology #Intermittent typical chest pain Patient does have chest pain, does have associated palpitations, underlying significant hypocalcemia causing symptoms. Troponin negative, EKG showed no acute ST-T T changes Patient had extensive outpatient workup, last cardiac cath from 2023 is negative for coronary artery disease Patient's chest pain can likely be secondary to palpitations due to hypocalcemia, should follow outpatient with cardiology for further workup. #Hypertension Hold metoprolol and nifedipine in setting of sinus bradycardia. Currently on hydralazine 25 twice daily and losartan 50 twice daily Recommendations: -Recommend changing losartan to 100 daily -Recommend starting patient on hydrochlorothiazide 12.5 mg daily while inpatient and can discharge patient on losartan hydrochlorothiazide combination pill -Continue hydralazine, can uptitrate as needed for blood pressure control #Hypothyroidism #Status post thyroidectomy, 2018 TSH 6.42, free T4 1.14. Patient is on levothyroxine 137 mcg daily, continue reports good compliance outpatient #?Obstructive sleep apnea Patient snores at night, did have sleep study in the past, reports never following up for result, not on any CPAP. Patient will benefit from sleep study outpatient #Depression #Anxiety #Substance use -Management per primary team Thank you for the consult and allowing to participate in the care of the patient. Cardiology will continue to follow. Case discussed with Attending Dr. Robert. Yenni Lainez PGY1 Disclaimer: This note was dictated by speech recognition. Minor errors in cinder pitman may be present due to voice recognition software. Attending Provider Attestation/Addendum I have personally seen and examined the patient separately on the above date of service and discussed the plan of care with the resident. I reviewed the resident Dr. Yenni Lainez consultation progress note and agree with the resident findings and plan in the note above and have also edited the documentation to reflect my findings and plan. Asher Robert M.D. Interventional Cardiology
--- NOTE | 2024-08-30 16:37 | ESPR_ITS ---
<Statement entered by Kayla Araujo MD - 08/30/24 19:10> Patient was seen and examined by me personally. I agree with most of the assessment and plan as discussed with the underwriting internship physician, and my attending, Dr. Sears. Hypocalcemia symptoms improving however BP remains elevated. Appreciate cardio recs, added HCTZ and increased losartan & hydralazine. Noted improvement by nearly 25%. Labs reviewed, added severlamer for hyperphosphatemia. Will reevaluate in the morning and consider DC if patient is stable. Kayla Araujo MD, PGY-3 Documentation for date of: 08/30/24 Subjective Subjective Interval history: Overnight team reported patient had episodes of bradycardia with heart rate in the 30s to low 40s while patient was asleep. Patient seen and examined at bedside this morning patient is saturating on room air, patient endorses still feeling much better denies any chest pain palpitations or headaches. Per cardiology recs patient is started on losartan 100 daily and hydrochlorothiazide 12.5 and increased the hydralazine p.o. to 3 times daily. This morning patient's blood pressure was elevated at 198/101 patient had not received her antihypertensive medications however she denied any headaches. Pertinent labs include potassium 3.6 and 40 mEq is repleted and phosphorus 6.3 and sevelamer x 1 is given. Calcium today is 8.5 and PTH is 17.3. Patient is to continue calcium carbonate 1200 mg twice daily and Calcitrol 0.5 mcg twice daily. Will continue to monitor daily labs. Patient has no other complaints. Exam Vital Signs Temp Pulse Resp BP Pulse Ox O2 Del Method 96.8 F 58 L 18 169/82 H 97 Room Air 08/30/24 16:00 08/30/24 16:00 08/30/24 16:00 08/30/24 16:00 08/30/24 16:08/30/24 16:00 Narrative Exam GENERAL: A&Ox3 morbidly obese female pleasant to speak to NEURO: no focal neurological deficits HEENT: Atraumatic, Normocephalic. mucous membranes moist. Eyes open, symmetrical, & clear HEART: Normal Heart Sounds LUNGS: Clear to auscultation with no wheezing or crackles. ABDOMEN: soft, non-distended, non-tender, bowel sounds heard, no guarding or rebound tenderness SKIN: No Rash or ecchymoses EXTREMITIES: No edema, tenderness, able to move all 4 extremities, pedal pulses palpated Objective Labs 08/30/24 05:15 08/30/24 05:15 Labs: Laboratory Results - last 24 hr 08/28/24 08/29/24 08/30/24 16:44 19:06 05:15 WBC 5.8 RBC 4.17 Hgb 12.6 Hct 38.1 MCV 91 MCH 30.2 MCHC 33.1 RDW Std Deviation 43.1 Plt Count 191 Neut % (Auto) 58 Lymph % (Auto) 32 [place] % (Auto) 6 Eos % (Auto) 3 Baso % (Auto) 1 Neut # (Auto) 3.4 Lymph # (Auto) 1.8 [place] # (Auto) 0.4 Eos # (Auto) 0.2 Baso # (Auto) 0.1 Immature Gran # (Auto) 0.01 H Absolute Nucleated RBC 0.00 Immature Gran % 0 Nucleated RBC % 0 Sodium 141 Potassium 3.6 D Chloride 103 Carbon Dioxide 26.7 Anion Gap 11 BUN 9 Creatinine 0.8 Estim Creat Clear Calc 106.1 eGFR > 60 BUN/Creatinine Ratio 11 L Glucose 93 Calculated Osmolality 279 Calcium 8.3 Corrected Calcium 8.5 Phosphorus 6.5 H Magnesium 1.9 2.5 Total Bilirubin 0.8 AST 14 ALT 33 Alkaline Phosphatase 80 Total Protein 6.6 Albumin 3.8 Globulin 2.8 Albumin/Globulin Ratio 1.4 25-OH Vitamin D Total 55.8 H PTH Intact 17.3 L Quality Measures Quality Measures none Assessment & Plan Assessment Current Active Medications: Generic Name Dose Route Start Last Admin Trade Name Freq PRN Reason Stop Dose Admin Acetaminophen 650 mg 08/28/24 22:56 08/30/24 12:03 Acetaminophen 325 Mg Tablet PO 09/27/24 22:55 650 mg Q6H PRN Administration Fever >100 or pain 1-3 Aspirin 81 mg 08/29/24 09:00 08/30/24 08:46 Aspirin Ec 81 Mg Tabec PO 09/28/24 08:59 81 mg QDAY MASISMO Administration Atropine Sulfate 1 mg 08/29/24 04:14 Atropine Sulf Inj 0.1 Mg/Ml Syr 10 Ml IV Q3MIN PRN for bradycardia 30 or below Calcitriol 0.5 mcg 08/29/24 09:00 08/30/24 08:45 Calcitriol 0.25 Mcg Capsule PO 09/28/24 08:59 0.5 mcg BID MASSIMO Administration Calcium Carbonate 1,200 mg 08/29/24 09:00 08/30/24 08:45 Calcium Carbonate 600 Mg Tablet PO 09/28/24 08:59 1,200 mg BID MASSIMO Administration Patient Own Medication 1 ea/ 0 ea 08/29/24 13:06 08/30/24 09:21 IV Miscellaneous Supplies 1 SL 09/28/24 10:31 1 film btl Q8H PRN Administration OPIOID WITHDDRAWAL Duloxetine HCl 60 mg 08/30/24 09:00 08/30/24 09:20 Duloxetine Hcl 30 Mg Capsule PO 09/29/24 08:59 60 mg DAILY MASSIMO Administration Enoxaparin Sodium 40 mg 08/29/24 15:15 08/30/24 08:46 Enoxaparin Sod Inj 40 Mg/0.4 Ml Syringe SC 09/12/24 15:14 40 mg QDAY MASSIMO Administration Gabapentin 300 mg 08/28/24 23:10 08/30/24 09:20 Gabapentin 300 Mg Capsule PO 09/28/24 05:59 300 mg TID PRN Administration cramps and neuropathic pain Hydralazine HCl 5 mg 08/29/24 03:50 08/30/24 08:47 Hydralazine Inj 20 Mg/Ml Vial IV 09/28/24 03:49 5 mg Q4H PRN Administration SBP above 180 Hydralazine HCl 25 mg 08/30/24 14:00 08/30/24 14:25 Hydralazine Hcl 25 Mg Tablet PO 09/29/24 13:59 25 mg TID MASSIMO Administration Hydrochlorothiazide 12.5 mg 08/30/24 09:00 08/30/24 08:45 Hydrochlorothiazide 12.5 Mg Capsule PO 09/29/24 08:59 12.5 mg QDAY MASSIMO Administration Levothyroxine Sodium 25 mcg 08/29/24 06:00 08/30/24 05:08 Levothyroxine Sodium 25 Mcg Tablet PO 09/28/24 05:59 25 mcg ACBR MASSIMO Administration Levothyroxine Sodium 112 mcg 08/29/24 06:00 08/30/24 05:08 Levothyroxine Sodium 112 Mcg Tablet PO 09/28/24 05:59 112 mcg ACBR MASSIMO Administration Losartan Potassium 100 mg 08/30/24 09:00 08/30/24 08:46 Losartan Potassium 25 Mg Tablet PO 09/29/24 08:59 100 mg QDAY MASSIMO Administration Plan Ivis is a 48 y/o female with PMHx of hypothyroidism s/p total thyroidectomy [address] Olivas, HTN, palpitations s/p implantable loop recorder (Done in April 2024), Takotsubo stress-induced cardiomyopathy, HFpEF (EF ~55-60%, G1DD), depression, anxiety, obesity, ? COPD, and substance abuse (Meth) who is admitted for evaluation of symptomatic bradycardia and hypocalcemia. #Symptomatic sinus bradycardia #RBBB, chronic #HFpEF with EF 55-60%, G1DD #S/p Implantable loop recorder #Hx of Takotsubo stress induced cardiomyopathy DDx: Hypothyroidism, CAD, medication side effect -Pt has ongoing symptoms of palpitations, and diziness, pt has an implantable loop recorder since April -EKG shows sinus bradycardia with a rate in the 40s and right bundle branch block -BNP 218 -TSH 6.42, T4 normal -bradycardia could be secondary to hypocalcemia and medications (pt takes metoprolol and nifedipine) Echo from June 2024: Normal LV size and function. Stage I diastolic dysfunction. Estimated EF 55-60% Normal RV size and function. Mild MR. Trace TR. EF appeared normal but images of the apex are not clear. Recommended to follow-up echo with primary volcanology teacher in [place] with Definity as it is unavailable at this institution. -Sees volcanology teacher Dr. Park in [place] Plan: -Keep magnesium and potassium above 2 and 4 respectively -Avoid beta-shira and any other medicines that can slow heart rate -Atropine 1 mg every 3 minutes as needed for bradycardia 30 or below -Cardio consulted, appreciate recommendations #Symptomatic chronic hypocalcemia likely secondary to #hypoparathyroidectomy #Status post total thyroidectomy, 2019 #Hx. Hypothyroidism -Patient is complaining of numbness, tingling around the mouth and hands and feet, Pt also has been experiencing cramps in LE, symptoms of tetany -PTH is 17.3, calcium 7.9 on admission Plan: -calcium chloride 10% and calcium carbonate 1200mg given x1 in the ED -continue home levothyroxine 137mcg daily -calcium carbonate 1200mg PO BID -calcitorol 0.5mcg PO BID #History of CAD #Hypertensive emergency #Essential hypertension -Patient is symptomatic including chest pains possible headache, no signs of endorgan damage at this time -Home medication losartan 50mg BID, nifidipine and metoprolol -In the ED hydralazine 5 mg IVx2 is given -Cardiac cath records show mild LAD bridging Plan: -Do not correct systolic blood pressure more than 25% within the first 24 hours -Hydralazine 5 mg IV every 4 hours as needed for SBP above 180 -Continued home aspirin -Continue home medication losartan 100 mg by mouth every day -hydralazine 25mg PO TID -Hydrochlorothiazide 12.5mg daily #Hyperphosphatemia -phosphorous 6.3 -sevalamir x1 given #History of depression #History of anxiety #History of morbid obesity -resumed home suboxone with pain parameter of 5 -Resumed home Cymbalta 60 mg at bedtime #History of meth abuse #History of THC abuse -U tox shows marijuana -Patient has not used meth in over 20 years per patient Health Maintenance Disposition: telemetry DVT Prophylaxis: levonox 40mg SC Qday GI Prophylaxis: not indicated Diet: Cardiac Diet Lines: Peripheral lines Code status: Full Assessment and plan discussed with my senior resident Dr. Araujo & attending physician Dr. Renu Preston (PGY-1)- Internal medicine resident Attending Provider Attestation/Addendum I have discussed and was present for the essential components of the history, physical examination, diagnosis, and treatment plan with the resident. I agree with the patient's care as documented by the resident and amended herein by me. Bert Sears DO. Although this document has been carefully reviewed, there may still be some phonetic and other typographical errors. These errors are purely grammatical due to imperfections in the software program and should not be construed in any way to compromise the substance of the patient's medical care during this visit.
[2024-08-31] VITALS (10 sets, daily range): BP systolic 132–167; BP diastolic 78–102; PULSE 45–61; RESP 13–18; TEMP 36.1–36.5; O2SAT 95–98; BMI 47.8
[2024-08-31] MEDS: MELATONIN 3 MG TABLET PO (00:32)
[2024-08-31 05:23] LABS: Basophils # (Auto) 0.1 Thou/mm3 (0.0-0.2); Basophils % (Auto) 1 % (0-2.5); Eosinophils # (Auto) 0.2 Thou/mm3 (0.0-0.5); Eosinophils % (Auto) 3 % (0-10); Hematocrit 38.4 % (36.0-46.0); Hemoglobin 12.6 g/dL (12.0-16.0); Immature Granulocytes % (Auto) 0 % (0-0); Immature Granulocytes Auto 0.01 Thou/mm3 (0.00-0.00); Lymphocytes # (Auto) 2.1 Thou/mm3 (1.0-4.8); Lymphocytes % (Auto) 35 % (10-50); Mean Corpuscular HGB Conc 32.8 g/dl (31.0-37.0); Mean Corpuscular Hemoglobin 30.3 pg (25.0-35.0); Mean Corpuscular Volume 92 fL (80-100); Monocytes # (Auto) 0.4 Thou/mm3 (0.0-0.8); Monocytes % (Auto) 6 % (0-12); Neutrophils # (Auto) 3.3 Thou/mm3 (1.8-7.7); Neutrophils % (Auto) 55 % (37-80); Nucleated Red Blood Cell % 0 /100 WBC (0); Platelet Count 187 Thou/mm3 (140-440); RDW Standard Deviation 43.3 fL (36.4-46.3); Red Blood Count 4.16 Miln/mm3 (4.00-5.20)
[2024-08-31 06:06] LABS: Alanine Aminotransferase 26 U/L (10-49); Albumin, Serum 4.1 gm/dL (3.5-5.0); Albumin/Globulin Ratio 1.5 (1.2-2.2); Alkaline Phosphatase 77 U/L (46-116); Anion Gap 10 (7-16); Aspartate Amino Transferase 15 U/L (0-34); BUN/Creatinine Ratio 11 Ratio (12-20); Bilirubin,Total 0.7 mg/dL (0.3-1.2); Blood Urea Nitrogen 9 mg/dL (9-23); Calcium 8.7 mg/dL (8.3-10.6); Calcium (Corrected) 8.7 mg/dL (8.5-10.1); Carbon Dioxide 29.7 mMol/L (20.0-31.0); Chloride 101 mMol/L (98-107); Creatinine (Component) 0.8 mg/dL (0.6-1.3); Estimated Creatinine Clearance 106.1 mL/min (>60); Globulin 2.7 gm/dL (2.3-3.5); Glucose 96 mg/dL (74-106); Magnesium 1.7 mg/dL (1.6-2.6); Osmolality,Calculated 279 (275-295); Potassium 3.8 mMol/L (3.4-5.1); Sodium 141 mMol/L (136-145); Total Protein 6.8 gm/dL (5.7-8.2); eGFR > 60 See Note
[2024-08-31] MEDS: LEVOTHYROXINE SODIUM 112 MCG TABLET PO (07:05)
[2024-08-31] MEDS: LEVOTHYROXINE SODIUM 25 MCG TABLET PO (07:06)
[2024-08-31] MEDS: hydrALAZINE HCL 25 MG TABLET PO (07:06)
[2024-08-31] MEDS: CALCIUM CARBONATE 600 MG TABLET 1200 MG PO (09:48)
[2024-08-31] MEDS: hydroCHLOROthiazide 12.5 MG CAPSULE PO (09:48)
[2024-08-31] MEDS: LOSARTAN POTASSIUM 25 MG TABLET 100 MG PO (09:50)
[2024-08-31] MEDS: DULoxetine HCL 30 MG CAPSULE 60 MG PO (09:50)
[2024-08-31] MEDS: ASPIRIN EC 81 MG TABEC PO (09:50)
[2024-08-31] MEDS: CALCITRIOL 0.25 mCg CAPSULE 0.5 MCG PO (09:51)
[2024-08-31] MEDS: Magnesium Sulfate 4 GM Ivpb 4 GM/50 ML BAG IV (10:02)
[2024-08-31] MEDS: GABAPENTIN 300 MG CAPSULE PO (10:02)
--- NOTE | 2024-08-31 10:09 | ESPR_ITS ---
Documentation for date of: 08/31/24 Subjective Subjective Interval history: Patient seen and examined at bedside. Patient has good chronotropic response for underlying bradycardia, not a candidate for pacemaker placement currently. Patient's resting heart rate is 45-50, will need outpatient monitoring, does have loop recorder. Corrected calcium 8.7 today, phosphorus 6.0 PTH 17.3, vitamin D 55.8 Patient will need close outpatient follow-up with cardiology, recommended follow-up outpatient in 1 week postdischarge Exam Vital Signs Temp Pulse Resp BP Pulse Ox O2 Del Method 97.6 F 59 L 18 164/102 H 97 Room Air 08/31/24 08:00 08/31/24 09:50 08/31/24 08:00 08/31/24 09:50 08/31/24 08:00 08/31/24 08:00 Narrative Exam Physical Exam General: Awake and in no acute distress. Conversational and non-toxic appearing. HEENT: Normocephalic, atraumatic, mucous membranes moist. Heart: Regular rate and rhythm, no murmurs. Lungs: Clear to auscultation with no wheezing or crackles. Abdomen: Soft, obese, nondistended, nontender, positive bowel sounds. ?No guarding or rebound tenderness. Neurologic: Alert and oriented x3, no gross neurological deficit, and patient able to move all 4 extremities. Extremities: No edema. Skin: No rash or ecchymoses. Objective Labs 08/31/24 04:10 08/31/24 04:10 Labs: Laboratory Results - last 24 hr 08/31/24 04:10 WBC 6.0 RBC 4.16 Hgb 12.6 Hct 38.4 MCV 92 MCH 30.3 MCHC 32.8 RDW Std Deviation 43.3 Plt Count 187 Neut % (Auto) 55 Lymph % (Auto) 35 [place] % (Auto) 6 Eos % (Auto) 3 Baso % (Auto) 1 Neut # (Auto) 3.3 Lymph # (Auto) 2.1 [place] # (Auto) 0.4 Eos # (Auto) 0.2 Baso # (Auto) 0.1 Immature Gran # (Auto) 0.01 H Absolute Nucleated RBC 0.00 Immature Gran % 0 Nucleated RBC % 0 Sodium 141 Potassium 3.8 Chloride 101 Carbon Dioxide 29.7 Anion Gap 10 BUN 9 Creatinine 0.8 Estim Creat Clear Calc 106.1 eGFR > 60 BUN/Creatinine Ratio 11 L Glucose 96 Calculated Osmolality 279 Calcium 8.7 Corrected Calcium 8.7 Phosphorus 6.0 H Magnesium 1.7 Total Bilirubin 0.7 AST 15 ALT 26 Alkaline Phosphatase 77 Total Protein 6.8 Albumin 4.1 Globulin 2.7 Albumin/Globulin Ratio 1.5 Quality Measures Quality Measures none Assessment & Plan Assessment Current Active Medications: Generic Name Dose Route Start Last Admin Trade Name Freq PRN Reason Stop Dose Admin Acetaminophen 650 mg 08/28/24 22:56 08/30/24 18:03 Acetaminophen 325 Mg Tablet PO 09/27/24 22:55 650 mg Q6H PRN Administration Fever >100 or pain 1-3 Aspirin 81 mg 08/29/24 09:00 08/31/24 09:50 Aspirin Ec 81 Mg Tabec PO 09/28/24 08:59 81 mg QDAY MASSIMO Administration Atropine Sulfate 1 mg 08/29/24 04:14 Atropine Sulf Inj 0.1 Mg/Ml Syr 10 Ml IV Q3MIN PRN for bradycardia 30 or below Calcium Carbonate 1,200 mg 08/29/24 09:00 08/31/24 09:48 Calcium Carbonate 600 Mg Tablet PO 09/28/24 08:59 1,200 mg BID MASSIMO Administration Patient Own Medication 1 ea/ 0 ea 08/29/24 13:06 08/30/24 09:21 IV Miscellaneous Supplies 1 SL 09/28/24 10:31 1 film btl Q8H PRN Administration OPIOID WITHDDRAWAL Duloxetine HCl 60 mg 08/30/24 09:00 08/31/24 09:50 Duloxetine Hcl 30 Mg Capsule PO 09/29/24 08:59 60 mg DAILY MASSIMO Administration Enoxaparin Sodium 40 mg 08/29/24 15:15 08/31/24 09:51 Enoxaparin Sod Inj 40 Mg/0.4 Ml Syringe SC 09/12/24 15:14 Not Given QDAY MASSIMO Gabapentin 300 mg 08/28/24 23:10 08/31/24 10:02 Gabapentin 300 Mg Capsule PO 09/28/24 05:59 300 mg TID PRN Administration cramps and neuropathic pain Hydralazine HCl 5 mg 08/29/24 03:50 08/30/24 20:37 Hydralazine Inj 20 Mg/Ml Vial IV 09/28/24 03:49 5 mg Q4H PRN Administration SBP above 180 Hydralazine HCl 25 mg 08/30/24 14:00 08/31/24 07:06 Hydralazine Hcl 25 Mg Tablet PO 09/29/24 13:59 25 mg TID MASSIMO Administration Hydrochlorothiazide 12.5 mg 08/30/24 09:00 08/31/24 09:48 Hydrochlorothiazide 12.5 Mg Capsule PO 09/29/24 08:59 12.5 mg QDAY MASSIMO Administration Magnesium Sulfate 4 gm in 50 mls @ 12.5 mls/hr 08/31/24 08:03 08/31/24 10:02 Magnesium Sulfate Ivpb IV 08/31/24 12:02 12.5 mls/hr X1 ONE Administration Levothyroxine Sodium 25 mcg 08/29/24 06:00 08/31/24 07:06 Levothyroxine Sodium 25 Mcg Tablet PO 09/28/24 05:59 25 mcg ACBR MASSIMO Administration Levothyroxine Sodium 112 mcg 08/29/24 06:00 08/31/24 07:05 Levothyroxine Sodium 112 Mcg Tablet PO 09/28/24 05:59 112 mcg ACBR MASSIMO Administration Losartan Potassium 100 mg 08/30/24 09:00 08/31/24 09:50 Losartan Potassium 25 Mg Tablet PO 09/29/24 08:59 100 mg QDAY MASSIMO Administration Plan Assessment and Plan: Summary: Ms. Blackman is a 48-year-old female with past medical history of hypothyroidism status post thyroidectomy [address] Olivas, hypertension, palpitations status post implantable loop recorder (April 2024) Takotsubo stress-induced cardiomyopathy, HFpEF EF 55 to 60%, diastolic heart failure, grade 1 diastolic dysfunction, depression, anxiety, obesity, COPD, ?obstructive sleep apnea and substance use who presented to [facility] [place] emergency department on 08/28/2024 with a chief complaint of muscle cramps in upper and lower extremities, weakness, fatigue and some chest pain. Cardiology consulted for concern of symptomatic sinus bradycardia. #Sinus bradycardia #Dizziness, palpitations #Hypocalcemia #QT prolongation Patient complains of on and off symptoms like muscle cramps in upper and lower extremities, weakness fatigue dizziness and chest pain on and off. In ED troponin negative, BNP 218 corrected calcium 7.0, ionized calcium 3.4 Patient did have implantable loop recorder placed by Dr. 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 Patient had a cardiac catheterization done in December 2023 at [facility] showed possible Takotsubo stress-induced cardiomyopathy with systolic heart failure EF 45%. Repeat echocardiogram December 2024 shows showed normal LV size and function, stage I diastolic dysfunction, EF 55 to 60%, normal RV size and function, mild MR, trace TR. Patient's echo images were not clear and was recommended to obtain echo with IV Definity as it was unavailable at this institution. EKG in the emergency department shows sinus bradycardia rate 41. Patient's TSH 6.42, free T41.14 PTH levels in June 22.7, normal, 25 OH vitamin D levels 23.1 in June. PTH 17.3, vitamin D 55.8 Recommendations: -Hold beta-blockers and calcium channel blockers due to concern of sinus bradycardia avoid other medications that can contribute to bradycardia. -Patient has good chronotropic response, on walking today patient's heart rate improved to 63 from 43, patient will need outpatient follow-up to assess loop recorder data -Discharge patient on losartan hydrochlorothiazide combination pill 100-25 mg -Agree with hydralazine for blood pressure control, can uptitrate dose as needed. -Patient needs close outpatient cardiology follow-up -Keep magnesium more than 2 and potassium more than 4, patient should continue magnesium supplements outpatient due to QT prolongation -Continue calcium carbonate 1200 mg twice daily and calcitriol 0.5 mg twice daily, improvement in calcium noted fo08/25 -Patient following up with endocrinology outpatient for hypocalcemia. #Heart failure with preserved ejection fraction, EF 55 to 60% #Diastolic heart failure, grade 1 diastolic dysfunction #Takotsubo syndrome, by history Patient had a cardiac catheterization done in December 2023 at [facility] showed possible Takotsubo stress-induced cardiomyopathy with systolic heart failure EF 45%. Repeat echocardiogram December 2024 shows showed normal LV size and function, stage I diastolic dysfunction, EF 55 to 60%, normal RV size and function, mild MR, trace TR. Patient's echo images were not clear and was recommended to obtain echo with IV Definity as it was unavailable at this institution. Did have moderate vascular congestion on chest x-ray during this admission, BNP 218, does have some shortness of breath on exertion. Will avoid Lasix due to hypocalcemia, patient will benefit from hydrochlorothiazide. Will hold beta-blockers in setting of sinus bradycardia Follow outpatient cardiology #Intermittent typical chest pain Patient does have chest pain, does have associated palpitations, underlying significant hypocalcemia causing symptoms. Troponin negative, EKG showed no acute ST-T T changes Patient had extensive outpatient workup, last cardiac cath from 2023 is negative for coronary artery disease Patient's chest pain can likely be secondary to palpitations due to hypocalcemia, should follow outpatient with cardiology for further workup. #Hypertension Hold metoprolol and nifedipine in setting of sinus bradycardia. Currently on hydralazine 25 twice daily and losartan 50 twice daily Recommendations: -Recommend changing losartan to 100 daily -Recommend starting patient on hydrochlorothiazide 12.5 mg daily while inpatient and can discharge patient on losartan hydrochlorothiazide combination pill -Continue hydralazine, can uptitrate as needed for blood pressure control #Hypothyroidism #Status post thyroidectomy, 2018 TSH 6.42, free T4 1.14. Patient is on levothyroxine 137 mcg daily, continue reports good compliance outpatient #?Obstructive sleep apnea Patient snores at night, did have sleep study in the past, reports never following up for result, not on any CPAP. Patient will benefit from sleep study outpatient #Depression #Anxiety #Substance use -Management per primary team Thank you for the consult and allowing to participate in the care of the patient. Cardiology will continue to follow. Case discussed with Attending Dr. Robert. Yenni Lainez PGY1 Disclaimer: This note was dictated by speech recognition. Minor errors in solar pool heating installer may be present due to voice recognition software. Attending Provider Attestation/Addendum I have personally seen and examined the patient separately on the above date of service and discussed the plan of care with the resident. I reviewed the resident Dr. Yenni Lainez consultation progress note and agree with the resident findings and plan in the note above and have also edited the documentation to reflect my findings and plan. Asher Robert M.D. Interventional Cardiology
[2024-08-31] MEDS: SEVELAMER CARBONATE 800 MG TABLET PO (10:15)
[2024-08-31] MEDS: [UNRECOGNIZED DRUG - OTHER] SL (10:15)
[2024-08-31 11:13] LABS: Calcium, Random Urine 22 mg/dL (2-18)
--- NOTE | 2024-08-31 11:46 | ESDS_ITS ---
<Statement entered by Les Infante MD - 08/31/24 21:39> I saw and examined the patient, and I agree with current management stated by Dr Mohan MD,PGY1. Plan of care was discussed with the attending physician and resident physician. Disclaimer: Despite multiple revisions, due to the dictation software being used, the document bellow may not be free of grammatical errors including phonetic/typographic errors. However, this does not deter from our commitment to providing health care in the patient's best interest in mind. Dr. Apple MD, PGY 2 Planned Discharge Date 08/31/24 DS: Providers Provider Date of admission: 08/29/24 15:13 Primary care physician: NGOZI Cortez Admitting Provider: Lyn Tam MD Attending Provider on Admission: Michael Sears DO Consults: 08/29/24 14:30 Consult to Cardiology Routine Comment: Consulting Provider: Asher Robert Instructions: symptomatic bradycardia Attending Provider on DC: Michael Sears DO Discharging Provider: Michael Sears DO DS: Diagnosis Problem List Completed Was Problem List Reviewed/Reconciled?: Yes Hospital Course Hospital Course Hospital course: This 48-year-old female with a medical history of hypothyroidism (status post total thyroide[place] [address] Olivas), hypertension, palpitations (status post implantable loop recorder placement in 2023), Takotsubo stress-induced cardiomyopathy, HFpEF (EF 55-60%), depression, anxiety, obesity, COPD, and methamphetamine abuse was admitted for evaluation of symptomatic bradycardia and hypocalcemia. She reported ongoing symptoms of palpitations, dizziness, muscle cramps in the upper and lower extremities, weakness, fatigue, and chest pain. Prior to admission, she had presented to the ED with similar complaints and was discharged on low-dose calcium supplements, but her symptoms persisted, prompting her return. On admission, she was found to have symptomatic bradycardia with a heart rate of 40 bpm and hypocalcemia, with a corrected calcium level of 7 mg/dL and a TSH of 6.42 (T4 was normal). Patient's home medication, levothyroxine was continued. She received calcium carbonate and calcium chloride in the ER. The hypocalcemia was attributed to likely hypoparathyroidism secondary to her prior thyroidectomy. An EKG revealed sinus bradycardia with a right bundle branch block (RBBB), and an echocardiogram from June 2024 showed stage I diastolic dysfunction, an EF of 55-60%, and mild mitral regurgitation.Cardiology was consulted, and her beta-shira was held, with atropine added as needed. She was started on calcium carbonate 1200 mg twice daily and calcitriol 0.5 mcg twice daily for hypocalcemia. Due to a hypertensive emergency, hydralazine 25 mg three times daily was initiated, and cardiology recommended adding hydralazine 12.5 mg while continuing her home losartan 100 mg daily. Beta-blockers and calcium channel blockers were discontinued. By the morning of discharge, her symptoms, including leg numbness and cramps, had improved, and her serum calcium levels were within normal limits. She was deemed stable for discharge home with appropriate follow-up.She was advised to follow up with craft center director after a week and follow with her laborer stores on September. #Discharge diagnosis #Symptomatic sinus bradycardia #RBBB, chronic #HFpEF with EF 55-60%, G1DD #S/p Implantable loop recorder #Hx of Takotsubo stress induced cardiomyopathy DDx: Hypothyroidism, CAD, medication side effect #Symptomatic chronic hypocalcemia likely secondary to #hypoparathyroidectomy #Status post total thyroidectomy, 2018 #Hx. Hypothyroidism #History of CAD #Hypertensive emergency #Essential hypertension #Hyperphosphatemia #History of depression #History of anxiety #History of morbid obesity #History of meth abuse DC instructions: -Follow up with your primary care within 2 weeks -You blood pressure medications have been changed to hydralazine three times a day and combination pill of losartan-hydrocholorothiazide once daily. You can stop taking metoprolol and nifidipine. -Follow up with craft center director Dr. Asher Robert within 2 weeks -follow up with endrocrinologist at your scheduled appointment on september 14. -Take your home medications as directed, your calcium carbonate dose have been increased to 1200 twice daily -if your symptoms worsen or return please return to the ED Assessment and plan discussed with attending physician Dr. Renu Preston (PGY-1)- Internal medicine resident Time Spent with Patient Time attestation: Total time spent providing and/or coordinating discharge services: Exam Vital Signs Temp Pulse Resp BP Pulse Ox O2 Del Method 97.6 F 59 L 18 164/102 H 97 Room Air 08/31/24 08:00 08/31/24 09:50 08/31/24 08:00 08/31/24 09:50 08/31/24 08:00 08/31/24 08:00 Narrative Exam GENERAL: A&Ox3 morbidly obese female pleasant to speak to. Sat well NEURO: no focal neurological deficits HEENT: Atraumatic, Normocephalic. mucous membranes moist. Eyes open, symmetrical, & clear HEART: Normal Heart Sounds LUNGS: Clear to auscultation with no wheezing or crackles. ABDOMEN: soft, non-distended, non-tender, bowel sounds heard, no guarding or rebound tenderness SKIN: No Rash or ecchymoses EXTREMITIES: No edema, tenderness, able to move all 4 extremities, pedal pulses palpated Discharge Plan Plan Patient Disposition: HOME (Self Care) Patient condition on transfer: Stable Care Plan Goals: -Follow up with your primary care within 2 weeks -You blood pressure medications have been changed to hydralazine three times a day and combination pill of losartan-hydrocholorothiazide once daily. You can stop taking metoprolol and nifidipine. -Follow up with craft center director Dr. Asher Robert within 2 weeks -follow up with endrocrinologist at your scheduled appointment on september 14. -Take your home medications as directed, your calcium carbonate dose have been increased to 1200 twice daily -if your symptoms worsen or return please return to the ED Prescriptions/Referrals Prescriptions/Med Rec: New calcium carbonate 600 mg calcium (1,500 mg) Tablet 1,200 mg PO BID Qty: 90 3RF hydralazine 25 mg Tablet 25 mg PO TID Qty: 90 3RF losartan-hydrochlorothiazide 100-12.5 mg tablet 1 tab PO QDAY Qty: 30 3RF Continued levothyroxine 137 mcg tablet 137 mcg PO 1XD Patient Comments: TAKE ONE TABLET BY MOUTH ONCE DAILY BEFORE BREAKFAST gabapentin 300 mg capsule 300 mg PO 3XD buprenorphine-naloxone 8-2 mg film 1 film BUCCAL 3XD Patient Comments: COMPLETELY DISSOLVE 1 FILM UNDER THE TONGUE THREE TIMES A DAY FOR 4 TO 8 MINUTES aspirin 81 mg Tablet 81 mg PO QDAY duloxetine 60 mg capsule,delayed release(DR/EC) 60 mg PO DAILY cholecalciferol (vitamin D3) 250 mcg (10,000 unit) capsule 250 mcg PO QWEEK Qty: 10 0RF cholecalciferol (vitamin D3) 125 mcg (5,000 unit) capsule 125 mcg PO BID Patient Comments: TAKE TWO CAPSULES BY MOUTH EVERY DAY VITAMIN Discontinued calcium carbonate 500 mg calcium (1,250 mg) tablet 500 mg PO DAILY Patient Comments: TAKE ONE TABLET BY MOUTH EVERY DAY WITH FOOD Rx Instructions: last dose a month ago before admission. losartan 50 mg tablet 50 mg PO BID Patient Comments: TAKE ONE TABLET BY MOUTH TWICE DAILY FOR BLOOD PRESSURE No Action magnesium oxide 400 mg (241.3 mg magnesium) tablet 400 mg PO BID Rx Instructions: last dose a wek ago before admission. ramelteon 8 mg tablet 8 mg PO HS PRN (Reason: Sleep) Referrals: Asher Robert MD [Physician] - Micheline Becerril FNP [Primary Care Provider] - Patient/Caregiver Discharge Instructions Discharge Activity: activity as tolerated Education Materials: Discharge Instructions for ..., Understanding Bradycardia, ED Hypocalcemia (Adult) Print Language: Scottish Stand Alone Forms: Evelia Award Info., Patient Portal Info Letter Discharge Order Discharge Orders: Discharge (Routine); Ordered 08/31/24 Ordered By: Winsome Preston Quality Discharge Quality Measures VTE prophylaxis (Lovenox) Attestestation MD Attestation I have discussed and was present for the essential components of the discharge history, physical examination, diagnosis, and discharge treatment plan with the resident. I agree with the patient's discharge care as documented by the resident and amended herein by me. Bert Sears DO. The patient understood all discharge instructions, all questions were answered satisfactorily. The patient was instructed to return to the Emergency Department is symptoms worsened or persisted. Patient will need close endocrine follow-up, she states she has an appointment on 14 September 2024. Will continue calcium supplementation and discharged with losartan/hydrochlorothiazide. The patient was stable, afebrile, tolerating p.o. intake and ambulatory time of discharge. Although this document has been carefully reviewed, there may still be some phonetic and other typographical errors. These errors are purely grammatical due to imperfections in the software program and should not be construed in any way to compromise the substance of the patient's medical care during this visit.
[2024-08-31] MEDS: ACETAMINOPHEN 325 MG TABLET 650 MG PO (11:59)
--- NOTE | 2024-08-31 15:32 | PC.NURSE ---
Discharge needs met, patient left with all belongings, in stable condition.
== END 2024-08-31 15:32 | disposition home or self-care (01) | DRG 425 ==
LOC: SERX 19:28 → SERHOLD 22:56 → S2SX 08-30 07:26 → S3NX 08-30 07:26
PROVIDERS: Family Medicine; Student in an Organized Health Care Education/Training Program; Admitting Provider Internal Medicine; Emergency Provider Emergency Medicine; PCP Nurse Practitioner Family; Visit Provider Student in an Organized Health Care Education/Training Program
DX: E83.51 Hypocalcemia (principal); I51.81 Takotsubo syndrome; I50.42 Chronic combined systolic (congestive) and diastolic (congestive) heart failure; F32.A Depression, unspecified; F41.9 Anxiety disorder, unspecified; I45.10 Unspecified right bundle-branch block; E89.0 Postprocedural hypothyroidism; I25.10 Atherosclerotic heart disease of native coronary artery without angina pectoris; D64.9 Anemia, unspecified; G47.33 Obstructive sleep apnea (adult) (pediatric); F15.10 Other stimulant abuse, uncomplicated; I16.1 Hypertensive emergency; E66.01 Morbid (severe) obesity due to excess calories; E83.39 Other disorders of phosphorus metabolism; J44.9 Chronic obstructive pulmonary disease, unspecified; R91.1 Solitary pulmonary nodule; F12.10 Cannabis abuse, uncomplicated; Z68.42 Body mass index [BMI] 45.0-49.9, adult; R00.1 Bradycardia, unspecified; Z87.891 Personal history of nicotine dependence; Z79.82 Long term (current) use of aspirin; Z79.890 Hormone replacement therapy; Z79.899 Other long term (current) drug therapy
CPT/HCPCS: 36415; 71045; 80048; 80053; 81001; 82306; 82330; 82340; 83690; 83735; 83880; 83970; 84100; 84439; 84443; 84484; 85025; 85610; 85730; 87081; 93005; 96365; 96367; 99291; G0378; J0131; J0360; J1650; J3475; J7030; A9270

== ENCOUNTER 2024-09-10 16:00 | Emergency (ER) | payer MEDICAID, SELFPAY ==
--- NOTE | 2024-09-10 16:49 | EKG_ITS ---
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
--- NOTE | 2024-09-10 16:49 | PD.EDRME ---
Rapid Medical Screening Exam RME Arrival date/time: 09/10/24 16:00 48-year-old female history of hypocalcemia presents to the emergency department with complaints of body twitching and cramping and reports tachycardia. I have greeted and performed a focused initial assessment of this patient. Initial appropriate labs ordered at this time. A comprehensive ED assessment and evaluation of the patient and analysis of all test and completion of medical decision making process will be conducted by additional ED provider. Chief Complaint: Recheck/Abnormal Lab/Rx Time Seen by Provider: 09/10/24 16:31
--- NOTE | 2024-09-10 17:04 | PC.NURSE ---
pt asked about which provider will be here tontwin. Pt was advised the ER doctor who will be coming on at 1800 and Pt stated they wanted to leave. Pt stayed to complete EKG and then walked out.
[2024-09-10 17:12] LABS: Basophils # (Auto) 0.1 Thou/mm3 (0.0-0.2); Basophils % (Auto) 1 % (0-2.5); Eosinophils # (Auto) 0.2 Thou/mm3 (0.0-0.5); Eosinophils % (Auto) 2 % (0-10); Hematocrit 38.7 % (36.0-46.0); Hemoglobin 13.2 g/dL (12.0-16.0); Immature Granulocytes % (Auto) 0 % (0-0); Immature Granulocytes Auto 0.02 Thou/mm3 (0.00-0.00); Lymphocytes # (Auto) 3.1 Thou/mm3 (1.0-4.8); Lymphocytes % (Auto) 33 % (10-50); Mean Corpuscular HGB Conc 34.1 g/dl (31.0-37.0); Mean Corpuscular Hemoglobin 30.9 pg (25.0-35.0); Mean Corpuscular Volume 91 fL (80-100); Monocytes # (Auto) 0.6 Thou/mm3 (0.0-0.8); Monocytes % (Auto) 6 % (0-12); Neutrophils # (Auto) 5.6 Thou/mm3 (1.8-7.7); Neutrophils % (Auto) 59 % (37-80); Nucleated Red Blood Cell % 0 /100 WBC (0); Platelet Count 251 Thou/mm3 (140-440); RDW Standard Deviation 41.9 fL (36.4-46.3); Red Blood Count 4.27 Miln/mm3 (4.00-5.20); White Blood Count 9.5 Thou/mm3 (3.6-11.0)
[2024-09-10 17:28] LABS: Partial Thromboplastin Time 27.1 Seconds (22.0-36.0); Prothrombin Time 11.1 Seconds (9.0-12.2)
[2024-09-10 17:29] LABS: B-Type Natriuretic Peptide 29 pg/mL (0-100)
[2024-09-10 17:42] LABS: Alanine Aminotransferase 8 U/L (10-49); Albumin, Serum 4.4 gm/dL (3.5-5.0); Albumin/Globulin Ratio 1.5 (1.2-2.2); Alkaline Phosphatase 73 U/L (46-116); Anion Gap 6 (7-16); Aspartate Amino Transferase 13 U/L (0-34); BUN/Creatinine Ratio 10 Ratio (12-20); Bilirubin,Total 0.4 mg/dL (0.3-1.2); Blood Urea Nitrogen 9 mg/dL (9-23); Calcium 10.3 mg/dL (8.3-10.6); Calcium (Corrected) 10.3 mg/dL (8.5-10.1); Carbon Dioxide 32.2 mMol/L (20.0-31.0); Chloride 101 mMol/L (98-107); Creatinine (Component) 0.9 mg/dL (0.6-1.3); Glucose 96 mg/dL (74-106); Lipase 23 U/L (12-53); Magnesium 1.8 mg/dL (1.6-2.6); Osmolality,Calculated 276 (275-295); Sodium 139 mMol/L (136-145); Total Protein 7.4 gm/dL (5.7-8.2); Troponin I < 0.020 ng/mL (0.0-0.045); eGFR > 60 See Note
== END 2024-09-10 19:31 | disposition left against medical advice (07) ==
PROVIDERS: Nurse Practitioner Primary Care; Emergency Provider Emergency Medicine
DX: R25.3 Fasciculation (principal); R25.2 Cramp and spasm; R00.0 Tachycardia, unspecified; Z53.29 Procedure and treatment not carried out because of patient's decision for other reasons
CPT/HCPCS: 36415; 80053; 83690; 83735; 83880; 84484; 85025; 85610; 85730; 93005; 99281

== ENCOUNTER 2024-11-21 11:44 | Emergency (ER) | payer MEDICAID, SELFPAY ==
[2024-11-21 11:44] VITALS: BMI 44.9
[2024-11-21 12:10] VITALS: BP 148/88; PULSE 56; RESP 18; TEMP 36.7; O2SAT 96
--- NOTE | 2024-11-21 12:46 | XR_ITS ---
Examination: Venous duplex lower extremity sonogram, bilateral. Date and time of exam: November 21, 2024 1257 hrs. Indications: Bilateral leg swelling and pain this week Technique: Multiple sonographic images of the deep venous system have been obtained. B-mode/2-D grayscale imaging of vascular structures and Doppler spectral analysis (waveforms) and color performed Both legs are examined. Findings: Deep venous systems do not demonstrate abnormal echogenicity. All visualized deep veins exhibit compressibility. All visualized deep veins exhibit augmentation. Impression: Negative for deep vein thrombosis
--- NOTE | 2024-11-21 12:47 | PD.EDRME ---
Rapid Medical Screening Exam RME Arrival date/time: 11/21/24 11:44 This is a 49-year-old female who came in in the emergency room due to both lower extremities pain swelling and some redness on the left lower extremities no history of injury or trauma no chest pain no shortness of breath Chief Complaint: General Adult/Misc Complain Time Seen by Provider: 11/21/24 12:43 Vital signs: Vital Signs Temperature 98.0 F 11/21/24 12:10 Pulse Rate 56 L 11/21/24 12:10 Respiratory Rate 18 11/21/24 12:10 Blood Pressure 148/88 H 11/21/24 12:10 Pulse Oximetry (%) 96 11/21/24 12:10 Oxygen Delivery Method Room Air 11/21/24 12:10
[2024-11-21 13:01] LABS: Basophils # (Auto) 0.1 Thou/mm3 (0.0-0.2); Basophils % (Auto) 1 % (0-2.5); Eosinophils # (Auto) 0.3 Thou/mm3 (0.0-0.5); Eosinophils % (Auto) 3 % (0-10); Hematocrit 34.9 % (36.0-46.0); Hemoglobin 11.9 g/dL (12.0-16.0); Immature Granulocytes % (Auto) 0 % (0-0); Immature Granulocytes Auto 0.02 Thou/mm3 (0.00-0.00); Lymphocytes # (Auto) 2.1 Thou/mm3 (1.0-4.8); Lymphocytes % (Auto) 27 % (10-50); Mean Corpuscular HGB Conc 34.1 g/dl (31.0-37.0); Mean Corpuscular Hemoglobin 30.3 pg (25.0-35.0); Mean Corpuscular Volume 89 fL (80-100); Monocytes # (Auto) 0.6 Thou/mm3 (0.0-0.8); Monocytes % (Auto) 7 % (0-12); Neutrophils # (Auto) 4.8 Thou/mm3 (1.8-7.7); Neutrophils % (Auto) 61 % (37-80); Nucleated Red Blood Cell % 0 /100 WBC (0); Platelet Count 192 Thou/mm3 (140-440); RDW Standard Deviation 41.4 fL (36.4-46.3); Red Blood Count 3.93 Miln/mm3 (4.00-5.20); White Blood Count 7.8 Thou/mm3 (3.6-11.0)
[2024-11-21 13:18] LABS: B-Type Natriuretic Peptide 86 pg/mL (0-100)
[2024-11-21 13:20] LABS: Alanine Aminotransferase 12 U/L (10-49); Albumin, Serum 4.5 gm/dL (3.5-5.0); Albumin/Globulin Ratio 1.7 (1.2-2.2); Alkaline Phosphatase 78 U/L (46-116); Anion Gap 10 (7-16); BUN/Creatinine Ratio 16 Ratio (12-20); Bilirubin,Total 0.5 mg/dL (0.3-1.2); Blood Urea Nitrogen 16 mg/dL (9-23); Calcium 10.4 mg/dL (8.3-10.6); Calcium (Corrected) 10.4 mg/dL (8.5-10.1); Carbon Dioxide 33.8 mMol/L (20.0-31.0); Chloride 101 mMol/L (98-107); Estimated Creatinine Clearance 87.4 mL/min (>60); Globulin 2.7 gm/dL (2.3-3.5); Glucose 101 mg/dL (74-106); Osmolality,Calculated 289 (275-295); Potassium 3.8 mMol/L (3.4-5.1); Sodium 145 mMol/L (136-145); Total Protein 7.2 gm/dL (5.7-8.2); eGFR > 60 See Note
[2024-11-21 15:19] VITALS: BP 173/98; PULSE 55; RESP 18; TEMP 36.6; O2SAT 98
--- NOTE | 2024-11-21 15:25 | PD.EDADULT ---
ED General RME/HPI General Chief complaint: General Adult/Misc Complain Stated complaint: BILAT LL SWELLING Time Seen by Provider: 11/21/24 12:43 Arrival date/time: 11/21/24 11:44 Limitations: no limitations RME / HPI RME / HPI narrative: 11/21/24 11:44 This is a 49-year-old female who came in in the emergency room due to both lower extremities pain swelling and some redness on the left lower extremities no history of injury or trauma no chest pain no shortness of breath. Has appoint with Dr. Park coverage analyst in 3 days. States no contributing history other than hypertension but PCP elected to send her to coverage analyst. Related Data Home Medications ?Medication ?Instructions ?Recorded ?Confirmed buprenorphine 8 mg-naloxone 2 mg 1 film buccal 3XD 06/22/24 08/29/24 sublingual film gabapentin 300 mg capsule 300 mg PO 3XD 06/22/24 08/29/24 levothyroxine 137 mcg tablet 137 mcg PO 1XD 06/22/24 08/29/24 aspirin 81 mg tablet 81 mg PO QDAY 06/23/24 08/29/24 duloxetine 60 mg capsule,delayed 60 mg PO DAILY 06/23/24 08/29/24 release magnesium oxide 400 mg (241.3 mg 400 mg PO BID 06/23/24 08/29/24 magnesium) tablet ramelteon 8 mg tablet 8 mg PO HS PRN Sleep 06/23/24 08/29/24 cholecalciferol (vitamin D3) 125 125 mcg PO BID 08/29/24 08/29/24 mcg (5,000 unit) capsule Previous Rx's ?Medication ?Instructions ?Recorded cholecalciferol (vitamin D3) 250 250 mcg PO QWEEK #10 caps 06/23/24 mcg (10,000 unit) capsule calcium carbonate 1,200 mg (2 x 600 mg calcium 08/31/24 (1,500 mg)) PO BID #90 tabs hydralazine 25 mg tablet 25 mg PO TID #90 tabs 08/31/24 losartan 100 1 tab PO QDAY #30 tabs 08/31/24 mg-hydrochlorothiazide 12.5 mg tablet furosemide 20 mg tablet (Lasix) 20 mg PO QAM #30 tabs 11/21/24 potassium chloride 10 mEq 10 meq PO QDAY #30 caps 11/21/24 capsule,extended release Allergies Allergy/AdvReac Type Severity Reaction Status Date / Time No Known Allergies Allergy Verified 11/21/24 11:48 Review of Systems Review of Systems Systems Reviewed: All systems reviewed, normal except as documented Constitutional Constitutional: Denies fever(s) Musculoskeletal Musculoskeletal: Reports as per HPI Integumentary/Breasts Skin/Breast: Reports as per HPI ED Exam General Limitations: Present no limitations General appearance: Present alert and in no apparent distress Eye Eye exam: Present normal appearance, PERRL and EOMI Respiratory Respiratory exam: Present normal lung sounds bilaterally Cardiovascular Cardiovascular exam: Present regular rate, normal rhythm and normal heart sounds Abdominal Exam Abdominal exam: Present soft and normal bowel sounds Extremities Exam Extremities exam: Present full ROM and tenderness (Trace bilateral edema) Back Exam Back exam: Present normal inspection and full ROM Psychiatric Psychiatric exam: Present normal affect and normal mood Skin Skin exam: Present warm, dry, intact and normal color Course Quality Measures none Orders Category Date Time Status US venous duplex LE BI Stat Exams 11/21/24 12:46 Completed BNP [B-Type Natriuretic Peptide] Stat Lab 11/21/24 12:52 Completed CBC Stat Lab 11/21/24 12:52 Completed CMP [Comprehensive Metabolic Panel] Stat Lab 11/21/24 12:52 Completed Vital Signs Vital signs: Vital Signs Temperature 98.0 F 11/21/24 12:10 Pulse Rate 56 L 11/21/24 12:10 Respiratory Rate 18 11/21/24 12:10 Blood Pressure 148/88 H 11/21/24 12:10 Pulse Oximetry (%) 96 11/21/24 12:10 Oxygen Delivery Method Room Air 11/21/24 12:10 Discharge Plan Plan Patient Disposition: HOME (Self Care) Discharge Disposition comment: f./u with pcp in 2-3days Prescriptions/Referrals Prescriptions/Med Rec: New furosemide [Lasix] 20 mg tablet 20 mg PO QAM Qty: 30 0RF potassium chloride 10 mEq capsule, extended release 10 meq PO QDAY Qty: 30 0RF No Action levothyroxine 137 mcg tablet 137 mcg PO 1XD Patient Comments: TAKE ONE TABLET BY MOUTH ONCE DAILY BEFORE BREAKFAST gabapentin 300 mg capsule 300 mg PO 3XD buprenorphine-naloxone 8-2 mg film 1 film BUCCAL 3XD Patient Comments: COMPLETELY DISSOLVE 1 FILM UNDER THE TONGUE THREE TIMES A DAY FOR 4 TO 8 MINUTES aspirin 81 mg Tablet 81 mg PO QDAY duloxetine 60 mg capsule,delayed release(DR/EC) 60 mg PO DAILY magnesium oxide 400 mg (241.3 mg magnesium) tablet 400 mg PO BID Rx Instructions: last dose a wek ago before admission. ramelteon 8 mg tablet 8 mg PO HS PRN (Reason: Sleep) cholecalciferol (vitamin D3) 250 mcg (10,000 unit) capsule 250 mcg PO QWEEK Qty: 10 0RF cholecalciferol (vitamin D3) 125 mcg (5,000 unit) capsule 125 mcg PO BID Patient Comments: TAKE TWO CAPSULES BY MOUTH EVERY DAY VITAMIN calcium carbonate 600 mg calcium (1,500 mg) Tablet 1,200 mg PO BID Qty: 90 3RF hydralazine 25 mg Tablet 25 mg PO TID Qty: 90 3RF losartan-hydrochlorothiazide 100-12.5 mg tablet 1 tab PO QDAY Qty: 30 3RF Problem List Clinical Impression: Edema, Left leg pain Patient/Caregiver Discharge Instructions Education Materials: ED Lymphedema Print Language: Albanian Stand Alone Forms: Evelia Award Info., Patient Portal Info Letter PA/CHEMICAL WEIGHER Supervising Physician PA/CHEMICAL WEIGHER Supervising Physician: Dr. godwin MDM Narrative MDM hospital course: Patient remained stable during her hospital stay did not require medications here Clinical Information Provided by patient and family Medical Records Reviewed [facility] Meds/Rx Considered, not Ordered Describe details: All medications that were considered were ordered Labs/Rad/Tests considered, not Ordered Describe details: CTA of the chest was considered however patient is not having shortness of breath unlikely to change the course of today's plan EKG EKG not done (No chest pain or shortness of breath) Lab Interpretation Lab(s) interpretation(s): BNP within normal limits, within normal limits and Doppler also within normal limits Imaging Provider imaging interpretation(s): Doppler within normal limits Medication Administration(s) None given today Diagnosis Differential diagnosis: DVT, edema, heart failure, PE Most likely dx, and/or detailed dx discussion: Edema Hypertension Dispositon Disposition: Discharge Home
== END 2024-11-21 15:42 | disposition home or self-care (01) ==
LOC: SERX 15:52
PROVIDERS: Nurse Practitioner Family; Emergency Provider Family Medicine
DX: R60.9 Edema, unspecified (principal); M79.605 Pain in left leg; M79.604 Pain in right leg
CPT/HCPCS: 36415; 80053; 83880; 85025; 93970; 99284

== ENCOUNTER 2024-12-01 15:35 | Emergency (ER) | payer MEDICAID, SELFPAY ==
[2024-12-01 15:36] VITALS: BMI 48.2
[2024-12-01 15:46] VITALS: BP 138/92; PULSE 60; RESP 20; TEMP 36.9; O2SAT 95
--- NOTE | 2024-12-01 15:58 | XR_ITS ---
Examination: Venous duplex lower extremity sonogram, bilateral. Date and time of exam: December 01, 2024 1611 hours INDICATION: Bilateral leg pain beginning 2 years ago Technique: Multiple sonographic images of the deep venous system have been obtained. B-mode/2-D grayscale imaging of vascular structures and Doppler spectral analysis (waveforms) and color performed Both legs are examined. Findings: Deep venous systems do not demonstrate abnormal echogenicity. All visualized deep veins exhibit compressibility. All visualized deep veins exhibit augmentation. Impression: Negative for deep vein thrombosis
--- NOTE | 2024-12-01 15:59 | PD.EDEXREM ---
ED Extremity Problem RME/HPI General Chief complaint: Extremity Problem,Nontraumatic Stated complaint: LEFT LEG SWELLING R/O DVT WITH TOE NUMBNESS Time Seen by Provider: 12/01/24 15:52 Arrival date/time: 12/01/24 15:35 RME / HPI RME / HPI Narrative: 49-year-old female patient was brought in for evaluation regarding bilateral lower leg swelling. Patient's been having worsening bilateral lower leg swelling, associated with discomfort, numbness to the lower leg. Patient was seen here 10 days ago and ultrasound came back negative. Follow-up with PCP today and was advised to come to the emergency room for repeat ultrasound of the lower extremity. Denies any shortness of breath denies any chest pain. Related Data Home Medications ?Medication ?Instructions ?Recorded ?Confirmed buprenorphine 8 mg-naloxone 2 mg 1 film buccal 3XD 06/22/24 08/29/24 sublingual film gabapentin 300 mg capsule 300 mg PO 3XD 06/22/24 08/29/24 levothyroxine 137 mcg tablet 137 mcg PO 1XD 06/22/24 08/29/24 aspirin 81 mg tablet 81 mg PO QDAY 06/23/24 08/29/24 duloxetine 60 mg capsule,delayed 60 mg PO DAILY 06/23/24 08/29/24 release magnesium oxide 400 mg (241.3 mg 400 mg PO BID 06/23/24 08/29/24 magnesium) tablet ramelteon 8 mg tablet 8 mg PO HS PRN Sleep 06/23/24 08/29/24 cholecalciferol (vitamin D3) 125 125 mcg PO BID 08/29/24 08/29/24 mcg (5,000 unit) capsule Previous Rx's ?Medication ?Instructions ?Recorded cholecalciferol (vitamin D3) 250 250 mcg PO QWEEK #10 caps 06/23/24 mcg (10,000 unit) capsule calcium carbonate 1,200 mg (2 x 600 mg calcium 08/31/24 (1,500 mg)) PO BID #90 tabs hydralazine 25 mg tablet 25 mg PO TID #90 tabs 08/31/24 losartan 100 1 tab PO QDAY #30 tabs 08/31/24 mg-hydrochlorothiazide 12.5 mg tablet furosemide 20 mg tablet (Lasix) 20 mg PO QAM #30 tabs 11/21/24 potassium chloride 10 mEq 10 meq PO QDAY #30 caps 11/21/24 capsule,extended release Allergies Allergy/AdvReac Type Severity Reaction Status Date / Time No Known Allergies Allergy Verified 12/01/24 15:39 Review of Systems Review of Systems Narrative Review of Systems: Review of system reviewed and within normal limits except mentioned in HPI ED Exam Narrative Physical exam: VITAL SIGNS: Reviewed. GENERAL APPEARANCE: Alert and interactive, follows commands, no acute distress, HEAD AND FACE: Non-traumatic. ENT: PERRL, pink conjunctivitis, eyelid no trauma, Mucous membrane moist. NECK: Supple, nontender, no nuchal rigidity. CHEST: No tenderness, no crepitus, no paradoxical movement, no retractions. LUNGS: Clear, well ventilated, symmetric, no rales, no wheezing, no ronchi, no stridor, good breath sounds bilaterally. HEART: Regular rate, regular rhythm, no murmur, no gallops. ABDOMEN: Soft, positive bowel sounds, nondistended, no guarding, nontender, no rebound, no masses, RECTAL: Deferred. GENITAL: Deferred. NEUROLOGICAL: Gross motor function intact sensory function intact, Appropriate for age. MUSCULOSKELETAL: low back nontender, full range of motion. EXTREMITIES: Bilateral lower extremity swelling, no redness tenderness noted of the calf muscle, full range of motion. Distal neurovascular status intact bilateral SKIN: Color pink, dry, no rash, no lacerations, no abrasions, no contusions. LYMPHATICS: Deferred. Course Quality Measures none Orders Category Date Time Status US venous doppler LE BI Stat Exams 12/01/24 15:58 Completed Vital Signs Vital signs: Vital Signs Temperature 98.4 F 12/01/24 15:46 Pulse Rate 60 12/01/24 15:46 Respiratory Rate 20 12/01/24 15:46 Blood Pressure 138/92 H 12/01/24 15:46 Pulse Oximetry (%) 95 12/01/24 15:46 Oxygen Delivery Method Room Air 12/01/24 15:46 Extremity Problem MDM Narrative MDM Narrative:: 49-year-old female patient was brought in for evaluation regarding bilateral lower leg swelling. Patient's been having worsening bilateral lower leg swelling, associated with discomfort, numbness to the lower leg. Patient was seen here 10 days ago and ultrasound came back negative. Follow-up with PCP today and was advised to come to the emergency room for repeat ultrasound of the lower extremity. Denies any shortness of breath denies any chest pain. Ultrasound of bilateral lower extremities negative for DVT. Results discussed with the patient. Patient was advised to elevate the leg as needed and wear compression stocking as needed. Patient data External records reviewed:: None Clinical information provided by:: patient Social determinants that could affect healthcare access:: none Patient has the following chronic illnesses:: None How is presenting disease/condition affected by chronic disease/condition?: exacerbated by Evaluation data The following diagnostics were reviewed and interpreted by me:: radiology exam(s) Lab and/or radiology exams considered but not ordered:: None Interpretation Summary: Ultrasound bilateral lower extremity negative for DVT Medications / Prescriptions Medications or Prescriptions considered but not ordered:: None Medication administrations:: None Consultations Consultation(s) initiated? (list below): No Diagnosis Extremity Problem Differential Diagnosis: lower extremity edema and deep vein thrombosis of lower extremity Most likely diagnosis given after review of the tests above:: Lower extremity edema bilateral Admission Indicated Admission indicated?: not indicated Admission Request Was there a request for admission?: No Disposition Plan Disposition Plan: Discharge Discharge Attestation Discharge Attestation: The patient was given an opportunity to ask questions and understood the discharge instructions. Discharge instructions specifically effects, indications for sooner follow up or return to the emergency department, and the expected course of current diagnosis. Patient condition: Stable Discharge Plan Plan Patient Disposition: HOME (Self Care) Discharge Disposition comment: Stable Prescriptions/Referrals Prescriptions/Med Rec: No Action levothyroxine 137 mcg tablet 137 mcg PO 1XD Patient Comments: TAKE ONE TABLET BY MOUTH ONCE DAILY BEFORE BREAKFAST gabapentin 300 mg capsule 300 mg PO 3XD buprenorphine-naloxone 8-2 mg film 1 film BUCCAL 3XD Patient Comments: COMPLETELY DISSOLVE 1 FILM UNDER THE TONGUE THREE TIMES A DAY FOR 4 TO 8 MINUTES aspirin 81 mg Tablet 81 mg PO QDAY duloxetine 60 mg capsule,delayed release(DR/EC) 60 mg PO DAILY magnesium oxide 400 mg (241.3 mg magnesium) tablet 400 mg PO BID Rx Instructions: last dose a wek ago before admission. ramelteon 8 mg tablet 8 mg PO HS PRN (Reason: Sleep) cholecalciferol (vitamin D3) 250 mcg (10,000 unit) capsule 250 mcg PO QWEEK Qty: 10 0RF furosemide [Lasix] 20 mg tablet 20 mg PO QAM Qty: 30 0RF potassium chloride 10 mEq capsule, extended release 10 meq PO QDAY Qty: 30 0RF cholecalciferol (vitamin D3) 125 mcg (5,000 unit) capsule 125 mcg PO BID Patient Comments: TAKE TWO CAPSULES BY MOUTH EVERY DAY VITAMIN calcium carbonate 600 mg calcium (1,500 mg) Tablet 1,200 mg PO BID Qty: 90 3RF hydralazine 25 mg Tablet 25 mg PO TID Qty: 90 3RF losartan-hydrochlorothiazide 100-12.5 mg tablet 1 tab PO QDAY Qty: 30 3RF Referrals: No Primary/Family,Physician [Primary Care Provider] - In 1 week Problem List Clinical Impression: Lower extremity edema Patient/Caregiver Discharge Instructions Discharge Activity: activity as tolerated Education Materials: ED Leg Swelling in Both Legs Additional Instructions: Thank you for the opportunity for serving you today. You are stable for discharged . You are advised to: Follow-up with your PCP in 1 to 2 days Return to ED for worsening of symptoms Elevate your legs as instructed Please wear compression stocking in the morning remove it during the night Print Language: Telugu Stand Alone Forms: Evelia Award Info., Patient Portal Info Letter PA/NGOZI Supervising Physician PA/NGOZI Supervising Physician: MD Karen
== END 2024-12-01 18:12 | disposition home or self-care (01) ==
PROVIDERS: Emergency Provider Emergency Medicine
DX: R60.0 Localized edema (principal); M79.605 Pain in left leg; M79.604 Pain in right leg
CPT/HCPCS: 93970; 99284

== ENCOUNTER 2024-12-09 20:02 | Emergency (ER) | payer MEDICAID, SELFPAY ==
[2024-12-09 20:05] VITALS: BMI 47.8
[2024-12-09 20:26] VITALS: BP 163/104; PULSE 50; RESP 18; TEMP 36.7; O2SAT 96
--- NOTE | 2024-12-09 20:33 | XR_ITS ---
Examination: CT brain head without contrast. 2-D sagittal coronal reconstructions Date and time of exam:December 09, 2024, 2041 hours Comparison August 25, 2024 INDICATIONS: Onset headache slurred speech facial paresthesias 2 days CTDI: vol (mGy):51 DLP: (mGycm):1133. Technique: Multiple CT axial sections of the brain have been obtained, 5 mm slice thickness. Contrast has not been administered. 2-D sagittal, coronal reconstructions have been obtained Low dose protocols were performed. One or more of the following dose reduction techniques were used; automated exposure control, adjustment of the mA and/or KV according to patient size, use of iterative reconstruction technique. Findings: No significant ventricular enlargement. Intra-axial or extra-axial hemorrhage density is not seen. No mass effect or midline shift Basal cisterns are not remarkable. Fourth ventricle is midline. Cranial vault intact. Impression: Negative for acute hemorrhage, mass effect or midline shift As clinically warranted, brain MRI follow-up would best assess for demyelinating disease, acute ischemic change
--- NOTE | 2024-12-09 20:33 | EKG_ITS ---
[facility] Test Date: 2024-12-09 Pat Name: LUZ MEZA Department: Room: - Gender: Female [employer] Faculty Member: : 1975 Requested By: Charlee Howell Order Number: [id number] Reading MD: Charlee Howell Measurements Intervals [place] Rate: 47 P: 62 IA: 173 QRS: 118 QRSD: 158 T: 61 QT: 486 QTc: 433 Interpretive Statements SINUS BRADYCARDIA RIGHT BUNDLE BRANCH BLOCK [120+ ms QRS DURATION, UPRIGHT V1, 40+ ms S IN I/aVL/V4/V5/V6] LEFT POSTERIOR FASCICULAR BLOCK [QRS AXIS > 109, INFERIOR Q] Compared to ECG 09/10/2024 16:59:58 Left posterior fascicular block now present Sinus rhythm no longer present Right-axis deviation no longer present /store/S0/[id number].pdf
--- NOTE | 2024-12-09 20:34 | EDNOTE_ITS ---
<Statement entered by Krista Rey MD - 12/10/24 23:29> As co-signing physician, I was present and available for consult prn. I concur with the plan and care as documented by the midlevel provider. ED Headache RME/HPI General Chief Complaint: Headache Stated Complaint: HEADACHE Time Seen by Provider: 12/09/24 20:29 Arrival date/time: 12/09/24 20:02 RME / HPI RME / HPI Narrative: 49-year-old female patient with significant history of hypertension came in for evaluation regarding headache. Patient's been having on and off headache, for the last 2 days, associated with generalized body weakness, and according to the family the patient is having headache patient has difficulty talking normal. Patient denies any upper or lower extremity weakness. Currently patient is not having any problem with speech. Patient is talking normal. Her headache is described as dull ache, severity moderate. Denies any fever denies any neck pain. Related Data Home Medications ?Medication ?Instructions ?Recorded ?Confirmed buprenorphine 8 mg-naloxone 2 mg 1 film buccal 3XD 01/0708/29/24 sublingual film gabapentin 300 mg capsule 300 mg PO 3XD 06/22/2408/29 levothyroxine 137 mcg tablet 137 mcg PO 1XD 06/22/24 0 08/29/24 aspirin 81 mg tablet 81 mg PO QDAY 06/23/2408/29 duloxetine 60 mg capsule,delayed 60 mg PO DAILY 08/29/24 release magnesium oxide 400 mg (241.3 mg 400 mg PO BID 5 08/29/24 magnesium) tablet ramelteon 8 mg tablet 8 mg PO HS PRN Sleep 5 08/29/24 cholecalciferol (vitamin D3) 125 125 mcg PO BID 08/29/24 mcg (5,000 unit) capsule Previous Rx's ?Medication ?Instructions ?Recorded cholecalciferol (vitamin D3) 250 250 mcg PO QWEEK #10 caps 06/23/24 mcg (10,000 unit) capsule calcium carbonate 1,200 mg (2 x 600 mg calcium 08/31/24 (1,500 mg)) PO BID #90 tabs hydralazine 25 mg tablet 25 mg PO TID #90 tabs losartan 100 1 tab PO QDAY #30 tabs 08/31 mg-hydrochlorothiazide 12.5 mg tablet furosemide 20 mg tablet (Lasix) 20 mg PO QAM #30 tabs 11/21/24 potassium chloride 10 mEq 10 meq PO QDAY #30 caps 02/07 capsule,extended release ibuprofen 800 mg tablet 800 mg PO Q8H PRN pain #30 t abs 12/09/24 Allergies Allergy/AdvReac Type Severity Reaction Status Date / Time No Known Allergies Allergy Verified 12/01/24 15:39 Review of Systems Review of Systems Narrative Review of Systems: Review of system reviewed and within normal limits except mentioned in HPI ED Exam Narrative Physical exam: VITAL SIGNS: Reviewed. GENERAL APPEARANCE: Alert and interactive, follows commands, no acute distress, HEAD AND FACE: Non-traumatic. ENT: PERRL, pink conjunctivitis, eyelid no trauma, Mucous membrane moist. NECK: Supple, nontender, no nuchal rigidity. CHEST: No tenderness, no crepitus, no paradoxical movement, no retractions. LUNGS: Clear, well ventilated, symmetric, no rales, no wheezing, no ronchi, no stridor, good breath sounds bilaterally. HEART: Regular rate, regular rhythm, no murmur, no gallops. ABDOMEN: Soft, positive bowel sounds, nondistended, no guarding, nontender, no rebound, no masses, RECTAL: Deferred. GENITAL: Deferred. NEUROLOGICAL: Gross motor function intact sensory function intact, Appropriate for age. MUSCULOSKELETAL: low back nontender, full range of motion. EXTREMITIES: Nontender, full range of motion. SKIN: Color pink, dry, no rash, no lacerations, no abrasions, no contusions. LYMPHATICS: Deferred. Course Quality Measures none Orders Category Date Time Status EKG (ED ONLY) *Do not use* NOW Care 12/09/24 20:[address] head/brain wo con Stat Exams 12/09/24 20:33 Completed EKG (ED Only) Stat Exams 12/09/24 20:33 Draft CBC [CBC] Stat Lab 12/09/24 21:09 Completed CMP [Comprehensive Metabolic Panel] Stat Lab 12/09/24 21:09 Completed UA, C/S IF [Urinalysis, C/S if Indicated] Stat Lab 12/09/24 20:52 Completed Acetaminophen Tab [Tylenol ES Tab] Med 12/09/24 20:34 Discontinued 1,000 mg PO X1 ONE DiphenhydrAMINE [Benadryl] Med 12/09/24 20:34 Discontinued 25 mg PO X1 ONE Metoclopramide [Reglan] Med 12/09/24 20:34 Discontinued 10 mg PO X1 ONE Vital Signs Vital signs: Vital Signs Temperature 98.1 F 12/09/24 20:26 Pulse Rate 50 L 12/09/24 20:26 Respiratory Rate 18 12/09/24 20:26 Blood Pressure 163/104 H 12/09/24 20:26 Pulse Oximetry (%) 96 12/09/24 20:26 Oxygen Delivery Method Room Air 12/09/24 20:26 Headache MDM Narrative [facility] Narrative:: 49-year-old female patient with significant history of hypertension came in for evaluation regarding headache. Patient's been having on and off headache, for the last 2 days, associated with generalized body weakness, and according to the family the patient is having headache patient has difficulty talking normal. Patient denies any upper or lower extremity weakness. Currently patient is not having any problem with speech. Patient is talking normal. Her headache is described as dull ache, severity moderate. Denies any fever denies any neck pain. CT scan of the head came back unremarkable. There is of the labs unremarkable. Patient results discussed with both of them. Patient told me that her headache is totally gone with Tylenol Benadryl and Reglan. Patient appears nontoxic and hemodynamically stable .Decision to discharge the patient. The patient/family was given an opportunity to ask questions and understood their discharge instructions. Discharge instructions specifically included follow up provider and time frame, current and/or new medications and possible side effects, indications for sooner follow up or return to the emergency department, and the expected course of current diagnosis. Patient reports feeling better as well and giving evidence of significant clinical improvement, I believe patient is now a candidate for discharge. Patient data External records reviewed:: None Clinical information provided by:: patient and family Social determinants that could affect healthcare access:: none Patient has the following chronic illnesses:: Hypertension How is presenting disease/condition affected by chronic disease/condition?: exacerbated by Evaluation data The following diagnostics were reviewed and interpreted by me:: lab results and radiology exam(s) Lab and/or radiology exams considered but not ordered:: None Interpretation Summary: See results MDM Medications / Prescriptions Medications or Prescriptions considered but not ordered:: None Medication administrations:: Medication Administration History Discontinued Medications Acetaminophen (Acetaminophen 500 Mg Tablet) 1,000 mg PO X1 ONE Stop: 12/09/24 20:35 Last Admin: 12/09/24 20:56 Dose: 1,000 mg Documented By: Diphenhydramine HCl (Diphenhydramine 25 Mg Capsule) 25 mg PO X1 ONE Stop: 12/09/24 20:35 Last Admin: 12/09/24 20:56 Dose: 25 mg Documented By: Metoclopramide HCl (Metoclopramide 5 Mg Tablet) 10 mg PO X1 ONE Stop: 12/09/24 20:35 Last Admin: 12/09/24 20:56 Dose: 10 mg Documented By: Regmaria l Benadryl and Tylenol Consultations Consultation(s) initiated? (list below): No Diagnosis Differential diagnosis headache: migraine, tension headache and headache Most likely diagnosis given after review of the tests above:: Headache Admission Indicated Admission indicated?: not indicated Admission Request Was there a request for admission?: No Disposition Plan Disposition Plan: Discharge Discharge Attestation Discharge Attestation: The patient and all family members were given an opportunity to ask questions and understood the discharge instructions. Discharge instructions specifically effects, indications for sooner follow up or return to the emergency department, and the expected course of current diagnosis. Patient condition: Stable Discharge Plan Plan Patient Disposition: HOME (Self Care) Discharge Disposition comment: Stable Prescriptions/Referrals Prescriptions/Med Rec: New ibuprofen 800 mg tablet 800 mg PO Q8H PRN (Reason: pain) Qty: 30 0RF No Action levothyroxine 137 mcg tablet 137 mcg PO 1XD Patient Comments: TAKE ONE TABLET BY MOUTH ONCE DAILY BEFORE BREAKFAST gabapentin 300 mg capsule 300 mg PO 3XD buprenorphine-naloxone 8-2 mg film 1 film BUCCAL 3XD Patient Comments: COMPLETELY DISSOLVE 1 FILM UNDER THE TONGUE THREE TIMES A DAY FOR 4 TO 8 M INUTES aspirin 81 mg Tablet 81 mg PO QDAY duloxetine 60 mg capsule,delayed release(DR/EC) 60 mg PO DAILY magnesium oxide 400 mg (241.3 mg magnesium) tablet 400 mg PO BID Rx Instructions: last dose a wek ago before admission. ramelteon 8 mg tablet 8 mg PO HS PRN (Reason: Sleep) cholecalciferol (vitamin D3) 250 mcg (10,000 unit) capsule 250 mcg PO QWEEK Qty: 10 0RF furosemide [Lasix] 20 mg tablet 20 mg PO QAM Qty: 30 0RF potassium chloride 10 mEq capsule, extended release 10 meq PO QDAY Qty: 30 0RF cholecalciferol (vitamin D3) 125 mcg (5,000 unit) capsule 125 mcg PO BID Patient Comments: TAKE TWO CAPSULES BY MOUTH EVERY DAY VITAMIN calcium carbonate 600 mg calcium (1,500 mg) Tablet 1,200 mg PO BID Qty: 90 3RF hydralazine 25 mg Tablet 25 mg PO TID Qty: 90 3RF losartan-hydrochlorothiazide 100-12.5 mg tablet 1 tab PO QDAY Qty: 30 3RF Referrals: Amelia Ibarra FNP-C [Primary Care Provider] - In 1 week Problem List Clinical Impression: Headache Patient/Caregiver Discharge Instructions Discharge Activity: activity as tolerated Education Materials: Self-Care for Headaches Additional Instructions: Thank you for the opportunity for serving you today. You are stable for discharged . You are advised to: Follow-up with your PCP in 1 to 2 days Return to ED for worsening of symptoms Increase oral fluids Take medication as prescribed Print Language: Bengali Stand Alone Forms: Evelia Award Info., Patient Portal Info Letter JOSSELIN/NGOZI Supervising Physician JOSSELIN/NGOZI Supervising Physician: MD Krissy
[2024-12-09] MEDS: DiphenhydrAMINE 25 MG CAPSULE PO (20:56)
[2024-12-09] MEDS: ACETAMINOPHEN 500 MG TABLET 1000 MG PO (20:56)
[2024-12-09] MEDS: METOCLOPRAMIDE 5 MG TABLET 10 MG PO (20:56)
[2024-12-09 21:03] LABS: Collection Type, Urine Clean Catch
[2024-12-09 21:20] LABS: Amorphous Crystals,Urine Present (Absent); Bilirubin,Urine Negative (Negative); Blood,Urine Negative (Negative); Color,Urine Yellow (Lt Yel-Yel); Culture Indicated,Urine Not Indicated; Glucose, Urine Negative (Negative); Ketones,Urine Negative (Negative); Leukocyte Esterase,Urine Negative (Negative); Nitrite,Urine Negative (Negative); Protein,Urine Negative (Neg - Trace); RBC,Urine 3 /hpf (0-3); Specific Gravity,Urine 1.015 (1.001-1.035); Squamous Epithelial Cell,Urine 4 /hpf (0-5); Urobilinogen,Urine Negative mg/dL (0.0-1.0); WBC,Urine 7 /hpf (0-5)
[2024-12-09 21:25] LABS: Clarity,Urine Turbid (Clear/Hazy)
[2024-12-09 21:35] LABS: Basophils # (Auto) 0.1 Thou/mm3 (0.0-0.2); Basophils % (Auto) 1 % (0-2.5); Eosinophils # (Auto) 0.3 Thou/mm3 (0.0-0.5); Eosinophils % (Auto) 3 % (0-10); Immature Granulocytes % (Auto) 0 % (0-0); Immature Granulocytes Auto 0.02 Thou/mm3 (0.00-0.00); Lymphocytes # (Auto) 2.4 Thou/mm3 (1.0-4.8); Lymphocytes % (Auto) 26 % (10-50); Mean Corpuscular HGB Conc 33.3 g/dl (31.0-37.0); Mean Corpuscular Hemoglobin 29.8 pg (25.0-35.0); Mean Corpuscular Volume 89 fL (80-100); Monocytes # (Auto) 0.7 Thou/mm3 (0.0-0.8); Monocytes % (Auto) 8 % (0-12); Neutrophils # (Auto) 5.7 Thou/mm3 (1.8-7.7); Neutrophils % (Auto) 63 % (37-80); Nucleated Red Blood Cell % 0 /100 WBC (0); Platelet Count 199 Thou/mm3 (140-440); RDW Standard Deviation 41.2 fL (36.4-46.3); Red Blood Count 3.69 Miln/mm3 (4.00-5.20)
[2024-12-09 21:47] LABS: Alanine Aminotransferase 18 U/L (10-49); Albumin, Serum 4.5 gm/dL (3.5-5.0); Albumin/Globulin Ratio 1.7 (1.2-2.2); Alkaline Phosphatase 76 U/L (46-116); Anion Gap 9 (7-16); Aspartate Amino Transferase 21 U/L (0-34); BUN/Creatinine Ratio 13 Ratio (12-20); Bilirubin,Total 0.5 mg/dL (0.3-1.2); Blood Urea Nitrogen 20 mg/dL (9-23); Calcium 11.7 mg/dL (8.3-10.6); Calcium (Corrected) 11.7 mg/dL (8.5-10.1); Carbon Dioxide 32.6 mMol/L (20.0-31.0); Chloride 98 mMol/L (98-107); Creatinine (Component) 1.6 mg/dL (0.6-1.3); Estimated Creatinine Clearance 52.8 mL/min (>60); Globulin 2.6 gm/dL (2.3-3.5); Glucose 109 mg/dL (74-106); Osmolality,Calculated 283 (275-295); Sodium 140 mMol/L (136-145); Total Protein 7.1 gm/dL (5.7-8.2); eGFR 39 See Note
[2024-12-09 23:16] VITALS: RESP 18
== END 2024-12-09 23:17 | disposition home or self-care (01) ==
PROVIDERS: Nurse Practitioner Family; Emergency Provider Emergency Medicine
DX: R51.9 Headache, unspecified (principal); I10 Essential (primary) hypertension; I45.10 Unspecified right bundle-branch block; I44.5 Left posterior fascicular block
CPT/HCPCS: 36415; 70450; 80053; 81001; 85025; 93005; 99284; A9270

== ENCOUNTER 2024-12-15 18:11 | Emergency (ER) | payer MEDICAID, SELFPAY ==
--- NOTE | 2024-12-15 18:15 | EKG_ITS ---
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
[2024-12-15 18:28] VITALS: BP 138/80; PULSE 65; RESP 16; TEMP 36.8; O2SAT 96; BMI 47.8
--- NOTE | 2024-12-15 19:49 | PC.NURSE ---
CALLED PATIENT IN THE LOBBY AND OUTSIDE, NO ANSWER RECEIVED. WILL INFORMED BY SERGEANT AT [facility] THAT PATIENT DIDN'T WANT SEE THE ED PROVIDER AND LEFT THE ED.
--- NOTE | 2024-12-15 20:02 | PC.NURSE ---
CALLED PATIENT IN THE LOBBY AND OUTSIDE, NO ANSWER RECEIVED.
--- NOTE | 2024-12-15 20:10 | PC.NURSE ---
CALLED PATIENT IN THE LOBBY AND OUTSIDE, NO ANSWER RECEIVED FROM PATIENT.
== END 2024-12-15 20:11 | disposition left against medical advice (07) ==
LOC: SERX 19:19
PROVIDERS: Emergency Provider Emergency Medicine
DX: Z53.21 Procedure and treatment not carried out due to patient leaving prior to being seen by health care provider (principal); I45.10 Unspecified right bundle-branch block
CPT/HCPCS: 93005; 99281

== ENCOUNTER 2025-01-23 16:03 | Emergency (ER) | payer MEDICAID, SELFPAY ==
[2025-01-23 16:05] VITALS: BMI 47.8
--- NOTE | 2025-01-23 16:08 | EKG_ITS ---
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
[2025-01-23 16:12] VITALS: BP 169/114; PULSE 59; RESP 20; TEMP 36.9; O2SAT 95
--- NOTE | 2025-01-23 16:23 | XR_ITS ---
Examination: PA lateral chest 2 views TECHNIQUE: Upright PA and lateral chest 2 views Date and time: January 23, 2025 1649 hours Comparison August 28, 2024 INDICATIONS: Chest pain beginning 2 days ago FINDINGS: Mild enlargement cardiac contour Moderate vascular congestion. No lobar pneumonia. No pulmonary edema. 10 mm pulmonary nodule left upper lobe IMPRESSION: Recommend CT chest without contrast follow-up to exclude 10 mm pulmonary nodule left upper lobe
--- NOTE | 2025-01-23 16:24 | PD.EDRME ---
Rapid Medical Screening Exam RME Arrival date/time: 01/23/25 16:03 49-year-old female presents to the emergency department complaints of chest pressure concerned about low calcium Chief Complaint: Chest Pain Vital signs: Vital Signs Temperature 98.5 F 01/23/25 16:12 Pulse Rate 59 L 01/23/25 16:12 Respiratory Rate 20 01/23/25 16:12 Blood Pressure 169/114 H 01/23/25 16:12 Pulse Oximetry (%) 95 01/23/25 16:12 Oxygen Delivery Method Room Air 01/23/25 16:12
[2025-01-23 16:59] LABS: Basophils # (Auto) 0.0 Thou/mm3 (0.0-0.2); Basophils % (Auto) 1 % (0-2.5); Eosinophils # (Auto) 0.1 Thou/mm3 (0.0-0.5); Eosinophils % (Auto) 2 % (0-10); Hematocrit 35.2 % (36.0-46.0); Hemoglobin 11.8 g/dL (12.0-16.0); Immature Granulocytes Auto 0.02 Thou/mm3 (0.00-0.00); Lymphocytes # (Auto) 2.5 Thou/mm3 (1.0-4.8); Lymphocytes % (Auto) 33 % (10-50); Mean Corpuscular HGB Conc 33.5 g/dl (31.0-37.0); Mean Corpuscular Hemoglobin 30.3 pg (25.0-35.0); Mean Corpuscular Volume 90 fL (80-100); Monocytes # (Auto) 0.5 Thou/mm3 (0.0-0.8); Monocytes % (Auto) 6 % (0-12); Neutrophils # (Auto) 4.4 Thou/mm3 (1.8-7.7); Neutrophils % (Auto) 59 % (37-80); Nucleated Red Blood Cell # 0.00 Thou/mm3 (0.00-0.00); Nucleated Red Blood Cell % 0 /100 WBC (0); Platelet Count 227 Thou/mm3 (140-440); RDW Standard Deviation 41.1 fL (36.4-46.3); Red Blood Count 3.90 Miln/mm3 (4.00-5.20); White Blood Count 7.5 Thou/mm3 (3.6-11.0)
[2025-01-23 17:05] LABS: INR 1.0 (0.9-1.3); Partial Thromboplastin Time 26.6 Seconds (22.0-36.0); Prothrombin Time 11.3 Seconds (9.0-12.2)
[2025-01-23 17:08] LABS: B-Type Natriuretic Peptide 125 pg/mL (0-100)
[2025-01-23 17:11] LABS: Alanine Aminotransferase 13 U/L (10-49); Albumin, Serum 4.1 gm/dL (3.5-5.0); Albumin/Globulin Ratio 1.5 (1.2-2.2); Alkaline Phosphatase 91 U/L (46-116); Anion Gap 10 (7-16); Aspartate Amino Transferase 17 U/L (0-34); BUN/Creatinine Ratio 9 Ratio (12-20); Bilirubin,Total 0.6 mg/dL (0.3-1.2); Blood Urea Nitrogen 11 mg/dL (9-23); Calcium 9.9 mg/dL (8.3-10.6); Calcium (Corrected) 9.9 mg/dL (8.5-10.1); Carbon Dioxide 34.2 mMol/L (20.0-31.0); Chloride 96 mMol/L (98-107); Creatinine (Component) 1.2 mg/dL (0.6-1.3); Estimated Creatinine Clearance 70.4 mL/min (>60); Globulin 2.7 gm/dL (2.3-3.5); Glucose 97 mg/dL (74-106); Lipase 23 U/L (12-53); Magnesium 1.6 mg/dL (1.6-2.6); Osmolality,Calculated 278 (275-295); Potassium 3.3 mMol/L (3.4-5.1); Sodium 140 mMol/L (136-145); Total Protein 6.8 gm/dL (5.7-8.2); Troponin I < 0.020 ng/mL (0.0-0.045); eGFR 55 See Note
[2025-01-23 17:12] LABS: Collection Type, Urine Clean Catch; RBC,Urine 0 /hpf (0-3); WBC,Urine 0 /hpf (0-5)
[2025-01-23 17:24] LABS: Bacteria,Urine Rare; Bilirubin,Urine Negative (Negative); Blood,Urine Negative (Negative); Clarity,Urine Turbid (Clear/Hazy); Color,Urine Lt-Yellow (Lt Yel-Yel); Glucose, Urine Negative (Negative); Hyaline Casts,Urine < 1 /hpf (0-1); Ketones,Urine Negative (Negative); Leukocyte Esterase,Urine Negative (Negative); Nitrite,Urine Negative (Negative); PH,Urine 7.5 (5.0-7.0); Protein,Urine Negative (Neg - Trace); Specific Gravity,Urine 1.011 (1.001-1.035); Squamous Epithelial Cell,Urine 5 /hpf (0-5); Urobilinogen,Urine Negative mg/dL (0.0-1.0)
[2025-01-23 17:32] LABS: Amphetamine/Methamp Scrn,U Negative (Negative); Barbiturate Screen,Urine Negative (Negative); Benzodiazepines Screen,Urine Negative (Negative); Benzoylecgonine Screen, Ur Negative (Negative); Fentanyl Screen,Urine Negative (Negative); Opiate Screen,Urine Negative (Negative); THC Screen,Urine Positive (Negative)
[2025-01-23 17:56] LABS: HCG Qualitative,Urine Negative
[2025-01-23 18:14] VITALS: BP 196/103; PULSE 58; RESP 16; TEMP 36.8; O2SAT 95
--- NOTE | 2025-01-23 18:28 | PD.EDCHEST ---
ED Chest Pain RME/HPI General Chief Complaint: Chest Pain Stated Complaint: CXP x 2 DAYS, WITH N/V, FATIGUE, NOT SLEEPING Time Seen by Provider: 01/23/25 17:02 Arrival date/time: 01/23/25 16:03 Patient is a 49-year-old presents the emergency room for chest pain, nausea and fatigue. Per patient has been at bedside, patient has had a very stressful year. Patient lost her granddaughter earlier this year. Patient has a history of chronic kidney disease and sees a high school counselor. Per patient also has history of stress-induced cardiomyopathy. Per patient, patient currently has a loop recorder. Patient also states that she has an appointment with her algorithm design engineer this week. Patient has a history of high blood pressure thyroidectomy, tubal ligatiomn, uterine ablation, hypothyroidism and depression. Patient also complains of a mild headache. Patient does report that she takes edibles of marijuana but has not been taking them for couple days. RME / HPI RME / HPI narrative: 01/23/25 16:03 49-year-old female presents to the emergency department complaints of chest pressure concerned about low calcium Related Data Home Medications ?Medication ?Instructions ?Recorded ?Confirmed buprenorphine 8 mg-naloxone 2 mg 1 film buccal 3XD 06/22/24 08/29/24 sublingual film gabapentin 300 mg capsule 300 mg PO 3XD 06/22/24 08/29/24 levothyroxine 137 mcg tablet 137 mcg PO 1XD 06/22/24 08/29/24 aspirin 81 mg tablet 81 mg PO QDAY 06/23/24 08/29/24 duloxetine 60 mg capsule,delayed 60 mg PO DAILY 06/23/24 08/29/24 release magnesium oxide 400 mg (241.3 mg 400 mg PO BID 06/23/24 08/29/24 magnesium) tablet ramelteon 8 mg tablet 8 mg PO HS PRN Sleep 06/23/24 08/29/24 cholecalciferol (vitamin D3) 125 125 mcg PO BID 08/29/24 08/29/24 mcg (5,000 unit) capsule Previous Rx's ?Medication ?Instructions ?Recorded cholecalciferol (vitamin D3) 250 250 mcg PO QWEEK #10 caps 06/23/24 mcg (10,000 unit) capsule calcium carbonate 1,200 mg (2 x 600 mg calcium 08/31/24 (1,500 mg)) PO BID #90 tabs hydralazine 25 mg tablet 25 mg PO TID #90 tabs 08/31/24 losartan 100 1 tab PO QDAY #30 tabs 08/31/24 mg-hydrochlorothiazide 12.5 mg tablet furosemide 20 mg tablet (Lasix) 20 mg PO QAM #30 tabs 11/21/24 potassium chloride 10 mEq 10 meq PO QDAY #30 caps 11/21/24 capsule,extended release ibuprofen 800 mg tablet 800 mg PO Q8H PRN pain #30 tabs 12/09/24 Allergies Allergy/AdvReac Type Severity Reaction Status Date / Time No Known Allergies Allergy Verified 01/23/25 16:07 Review of Systems Review of Systems Systems Reviewed: All systems reviewed, normal except as documented Past Medical History Past Medical History Comments PMH COMMENT: PMH: Positive for hypothyroidism status post thyroidectomy [address] 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 Patient is on Suboxone, has history of opiate use urine tox screen positive for marijuana -Martial Status: lives with kids and has been Family History: Family history significant for cardiac disease, reports 2 brothers had heart disease and in 50s, history of pacemaker placement in both sisters ED Exam Narrative Physical exam: VITAL SIGNS: Reviewed. GENERAL APPEARANCE: Alert and interactive, follows commands, no acute distress, HEAD AND FACE: Non-traumatic. ENT: PERRL, conjuctiva pink and clear, eyelid no trauma, Mucous membrane moist. NECK: Supple, nontender, no nuchal rigidity. CHEST: No tenderness, no crepitus, no paradoxical movement, no retractions. LUNGS: Clear, well ventilated, symmetric, no rales, no wheezing, no rhonchi, no stridor, good breath sounds bilaterally. HEART: Regular rate, regular rhythm, no murmur, no gallops. ABDOMEN: Soft, nondistended, no guarding, nontender NEUROLOGICAL: Gross motor function intact sensory function intact, Appropriate for age. MUSCULOSKELETAL: low back nontender, full range of motion. EXTREMITIES: No redness no swelling no skin breakdown on bilateral foot and leg. Distal neurovascular status intact bilateral foot SKIN: Color pink, dry, no rash, no lacerations, no abrasions, no contusions. Course Quality Measures none Orders Category Date Time Status EKG (ED ONLY) *Do not use* NOW Care 01/23/25 16:08 Completed EKG (ED Only) Stat Exams 01/23/25 16:08 Draft XR chest 2V Stat Exams 01/23/25 16:23 Completed B-Type Natriuretic Peptide Stat Lab 01/23/25 16:39 Completed CBC Stat Lab 01/23/25 16:39 Completed Comprehensive Metabolic Panel Stat Lab 01/23/25 16:39 Completed Drug Screen,Urine Stat Lab 01/23/25 16:52 Completed HCG Qualitative,Urine Stat Lab 01/23/25 16:52 Completed Lipase Stat Lab 01/23/25 16:39 Completed Magnesium Stat Lab 01/23/25 16:39 Completed Partial Thromboplastin Time Stat Lab 01/23/25 16:39 Completed Prothrombin Time with INR Stat Lab 01/23/25 16:39 Completed Troponin I Stat Lab 01/23/25 16:39 Completed Urinalysis Stat Lab 01/23/25 16:52 Completed Acetaminophen Tab [Tylenol ES Tab] Med 01/23/25 18:22 Discontinued 1,000 mg PO X1 ONE DiphenhydrAMINE INJ [Benadryl Inj] Med 01/23/25 18:22 Discontinued 25 mg IM X1 ONE Ketorolac Inj [Toradol Inj] Med 01/23/25 18:22 Discontinued 30 mg IM X1 ONE Metoclopramide Inj [Reglan Inj] Med 01/23/25 18:22 Discontinued 10 mg IM X1 ONE Vital Signs Vital signs: Vital Signs Temperature 98.5 F 01/23/25 16:12 Pulse Rate 59 L 01/23/25 16:12 Respiratory Rate 20 01/23/25 16:12 Blood Pressure 169/114 H 01/23/25 16:12 Pulse Oximetry (%) 95 01/23/25 16:12 Oxygen Delivery Method Room Air 01/23/25 16:12 PROCEDURES: EKG Interpretation #1: Date of EK01/23/25 Time of EK:15 Rate: 52 Interpretation: Interpreted by me (Sinus bradycardia with a right bundle branch block.) EKG Impression: No ectopy and Normal intervals Chest Pain MDM Narrative MDM Narrative:: Spoke to patient at length. Discuss repeating troponin, but pt would prefer to follow up with algorithm design engineer . She has an appointment this week. Patient is blood pressure elevated but states she takes her medication in the evening. Patient states she takes losartan. Patient states she will take it at home when she gets home. I also talked to her about taking potassium as her potassium 3.3. Patient is on diuretics. She states she will take it when she gets home. Today I gave patient a dose of Toradol 30 mg Benadryl 25 mg, Reglan 10 mg and Tylenol 1 g. Patient already has a follow-up appointment with algorithm design engineer Dr. Park this week. Patient told to come back to the emergency room symptoms change or worsen. I also talked to patient about pulmonary nodules seen on chest x-ray. Patient states she is already aware of this but will follow-up with primary provider. EKG showed sinus rhythm patient has a right bundle branch block that is not new. CBC unremarkable BNP shows a potassium of 3.3 chloride of 96 bicarb 34.2 BUN and creatinine of 11 and 1.2, magnesium 1.6 LFTs essentially normal, BNP is 125 and troponin is less than 0.020, UA was unremarkable but drug screen was positive for marijuana. chest x ray: FINDINGS: Mild enlargement cardiac contour Moderate vascular congestion. No lobar pneumonia. No pulmonary edema. 10 mm pulmonary nodule left upper lobe IMPRESSION: Recommend CT chest without contrast follow-up to exclude 10 mm pulmonary nodule left upper lobe Patient data External records reviewed:: [facility] previous records Clinical information provided by:: patient Social determinants that could affect healthcare access:: none Patient has the following chronic illnesses:: see hpi How is presenting disease/condition affected by chronic disease/condition?: no chronic disease Evaluation data The following diagnostics were reviewed and interpreted by me:: lab results, radiology exam(s) and EKG tracing(s) Lab and/or radiology exams considered but not ordered:: none Interpretation Summary: see note Medications / Prescriptions Medications or Prescriptions considered but not ordered:: none Medication administrations:: Medication Administration History Discontinued Medications Acetaminophen (Acetaminophen 500 Mg Tablet) 1,000 mg PO X1 ONE Stop: 01/23/25 18:23 Last Admin: 01/23/25 18:59 Dose: 1,000 mg Documented By: GRAHAM Diphenhydramine HCl (Diphenhydramine Inj 50 Mg/Ml Vial) 25 mg IM X1 ONE Stop: 01/23/25 18:23 Last Admin: 01/23/25 18:59 Dose: 25 mg Documented By: GRAHAM Ketorolac Tromethamine (Ketorolac Inj 60 Mg/2 Ml Vial) 30 mg IM X1 ONE Stop: 01/23/25 18:23 Last Admin: 01/23/25 19:01 Dose: 30 mg Documented By: GRAHAM Metoclopramide HCl (Metoclopramide Inj 5 Mg/Ml Vial 2 Ml) 10 mg IM X1 ONE; Protocol Stop: 01/23/25 18:23 Last Admin: 01/23/25 19:05 Dose: 10 mg Documented By: GRAHAM see mar Consultations Consultation(s) initiated? (list below): No Diagnosis Chest Pain Differential Diagnosis: fracture of rib, pneumothorax, unstable angina pectoris, atypical chest pain and st elevation myocardial infarction Most likely diagnosis given after review of the tests above:: headache Admission Indicated Admission indicated?: not indicated Admission Request Was there a request for admission?: No Disposition Plan Disposition Plan: Discharge Discharge Attestation Discharge Attestation: The patient and all family members were given an opportunity to ask questions and understood the discharge instructions. Discharge instructions specifically effects, indications for sooner follow up or return to the emergency department, and the expected course of current diagnosis. Patient condition: Stable Discharge Plan Plan Patient Disposition: HOME (Self Care) Patient condition on transfer: Stable Prescriptions/Referrals Prescriptions/Med Rec: No Action levothyroxine 137 mcg tablet 137 mcg PO 1XD Patient Comments: TAKE ONE TABLET BY MOUTH ONCE DAILY BEFORE BREAKFAST gabapentin 300 mg capsule 300 mg PO 3XD buprenorphine-naloxone 8-2 mg film 1 film BUCCAL 3XD Patient Comments: COMPLETELY DISSOLVE 1 FILM UNDER THE TONGUE THREE TIMES A DAY FOR 4 TO 8 MINUTES aspirin 81 mg Tablet 81 mg PO QDAY duloxetine 60 mg capsule,delayed release(DR/EC) 60 mg PO DAILY magnesium oxide 400 mg (241.3 mg magnesium) tablet 400 mg PO BID Rx Instructions: last dose a wek ago before admission. ramelteon 8 mg tablet 8 mg PO HS PRN (Reason: Sleep) cholecalciferol (vitamin D3) 250 mcg (10,000 unit) capsule 250 mcg PO QWEEK Qty: 10 0RF furosemide [Lasix] 20 mg tablet 20 mg PO QAM Qty: 30 0RF potassium chloride 10 mEq capsule, extended release 10 meq PO QDAY Qty: 30 0RF ibuprofen 800 mg tablet 800 mg PO Q8H PRN (Reason: pain) Qty: 30 0RF cholecalciferol (vitamin D3) 125 mcg (5,000 unit) capsule 125 mcg PO BID Patient Comments: TAKE TWO CAPSULES BY MOUTH EVERY DAY VITAMIN calcium carbonate 600 mg calcium (1,500 mg) Tablet 1,200 mg PO BID Qty: 90 3RF hydralazine 25 mg Tablet 25 mg PO TID Qty: 90 3RF losartan-hydrochlorothiazide 100-12.5 mg tablet 1 tab PO QDAY Qty: 30 3RF Referrals: Amelia Ibarra FNP-C [Primary Care Provider] - In 1 week Problem List Clinical Impression: Headache, Nausea, Chest pain, Pulmonary nodule Patient/Caregiver Discharge Instructions Discharge Activity: activity as tolerated Education Materials: Self-Care for Headaches Additional Instructions: Follow up with primary provider in 1-2 days. Come back to ED if symptoms change or worsen. Print Language: Danish Stand Alone Forms: Evelia Award Info., Patient Portal Info Letter JOSSELIN/NGOZI Supervising Physician DAMARIS Supervising Physician: gisell
[2025-01-23] MEDS: ACETAMINOPHEN 500 MG TABLET 1000 MG PO (18:59)
[2025-01-23] MEDS: KETOROLAC INJ 60 MG/2 ML VIAL 30 MG IM (19:01)
[2025-01-23] MEDS: METOCLOPRAMIDE INJ 5 MG/ML VIAL 2 ML 10 MG IM (19:05)
[2025-01-23 19:15] VITALS: BP 199/105; PULSE 61; RESP 18; TEMP 36.7; O2SAT 94
== END 2025-01-23 19:17 | disposition home or self-care (01) ==
PROVIDERS: Nurse Practitioner Primary Care; Emergency Provider Family Medicine
DX: R51.9 Headache, unspecified (principal); R07.89 Other chest pain; R11.0 Nausea; R91.8 Other nonspecific abnormal finding of lung field; I45.10 Unspecified right bundle-branch block; I13.0 Hypertensive heart and chronic kidney disease with heart failure and stage 1 through stage 4 chronic kidney disease, or unspecified chronic kidney disease; I50.32 Chronic diastolic (congestive) heart failure; N18.9 Chronic kidney disease, unspecified; E89.0 Postprocedural hypothyroidism; J44.9 Chronic obstructive pulmonary disease, unspecified; E66.9 Obesity, unspecified; Z68.42 Body mass index [BMI] 45.0-49.9, adult; Z95.818 Presence of other cardiac implants and grafts; Z87.891 Personal history of nicotine dependence; Z79.890 Hormone replacement therapy; Z79.899 Other long term (current) drug therapy; Z79.82 Long term (current) use of aspirin
CPT/HCPCS: 36415; 71046; 80053; 80307; 81001; 81025; 83690; 83735; 83880; 84484; 85025; 85610; 85730; 93005; 99283; J1200; J1885; J2765; A9270

== ENCOUNTER 2025-04-28 10:43 | Emergency (ER) | payer MEDICAID, SELFPAY ==
[2025-04-28 10:47] VITALS: PULSE 58; RESP 20; O2SAT 94
[2025-04-28 10:48] VITALS: BP 141/85; PULSE 57; RESP 18; TEMP 36.9; O2SAT 97; BMI 44.9
--- NOTE | 2025-04-28 10:53 | EKG_ITS ---
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
--- NOTE | 2025-04-28 11:07 | PD.EDRME ---
Rapid Medical Screening Exam RME Arrival date/time: 04/28/25 10:43 49-year-old female presents to the emergency room today for complaints of Vital signs: Vital Signs Temperature 98.5 F 04/28/25 10:48 Pulse Rate 57 L 04/28/25 10:48 Respiratory Rate 18 04/28/25 10:48 Blood Pressure 141/85 H 04/28/25 10:48 Pulse Oximetry (%) 97 04/28/25 10:48 Oxygen Delivery Method Room Air 04/28/25 10:48 Vital signs reviewed by provider: Yes Exam: On exam patient well-appearing does not appear ill or toxic Clinical Impression: Lab work imaging EKG obtained
--- NOTE | 2025-04-28 11:19 | XR_ITS ---
EXAMINATION: PA lateral chest 2 views TECHNIQUE: Upright PA lateral chest 2 views Date and time: April 28, 2025, 1137 hours, comparison January 23, 2025 INDICATIONS: Chest pain shortness of breath beginning 3 days ago. FINDINGS: Normal heart size No interval pneumonia or pulmonary edema Stable pulmonary nodule left upper lobe Prominent osteopenia IMPRESSION: No interval pneumonia or pulmonary edema
[2025-04-28 11:36] LABS: Collection Type, Urine Clean Catch
[2025-04-28 11:53] LABS: Amphetamine/Methamp Scrn,U Negative (Negative); Barbiturate Screen,Urine Negative (Negative); Benzodiazepines Screen,Urine Negative (Negative); Benzoylecgonine Screen, Ur Negative (Negative); Fentanyl Screen,Urine Negative (Negative); Opiate Screen,Urine Negative (Negative); THC Screen,Urine Positive (Negative)
[2025-04-28 12:02] LABS: Bacteria,Urine Rare; Bilirubin,Urine Negative (Negative); Blood,Urine Negative (Negative); Color,Urine Lt-Yellow (Lt Yel-Yel); Culture Indicated,Urine Not Indicated; Glucose, Urine Negative (Negative); Hyaline Casts,Urine < 1 /hpf (0-1); Ketones,Urine Negative (Negative); Leukocyte Esterase,Urine Negative (Negative); Nitrite,Urine Negative (Negative); PH,Urine 7.5 (5.0-7.0); Protein,Urine Negative (Neg - Trace); RBC,Urine 2 /hpf (0-3); Specific Gravity,Urine 1.010 (1.001-1.035); Squamous Epithelial Cell,Urine 7 /hpf (0-5); Urobilinogen,Urine Negative mg/dL (0.0-1.0); WBC,Urine 1 /hpf (0-5)
[2025-04-28 12:03] LABS: B-Type Natriuretic Peptide 145 pg/mL (0-100)
[2025-04-28 12:08] LABS: Alanine Aminotransferase 8 U/L (10-49); Albumin, Serum 4.6 gm/dL (3.5-5.0); Albumin/Globulin Ratio 1.7 (1.2-2.2); Alkaline Phosphatase 75 U/L (46-116); Anion Gap 7 (7-16); Aspartate Amino Transferase 19 U/L (0-34); BUN/Creatinine Ratio 11 Ratio (12-20); Bilirubin,Total 0.9 mg/dL (0.3-1.2); Blood Urea Nitrogen 11 mg/dL (9-23); Calcium 9.4 mg/dL (8.3-10.6); Calcium (Corrected) 9.4 mg/dL (8.5-10.1); Carbon Dioxide 32.2 mMol/L (20.0-31.0); Chloride 104 mMol/L (98-107); Creatinine (Component) 1.0 mg/dL (0.6-1.3); Estimated Creatinine Clearance 81.5 mL/min (>60); Free T4 (Free Thyroxine) 1.73 ng/dL (0.89-1.76); Globulin 2.7 gm/dL (2.3-3.5); Glucose 100 mg/dL (74-106); INR 1.0 (0.9-1.3); Magnesium 2.1 mg/dL (1.6-2.6); Osmolality,Calculated 284 (275-295); Partial Thromboplastin Time 28.5 Seconds (22.0-36.0); Potassium 3.9 mMol/L (3.4-5.1); Prothrombin Time 10.9 Seconds (9.0-12.2); Sodium 143 mMol/L (136-145); Thyroid Stimulating Hormone 0.33 uIU/mL (0.55-4.78); Total Protein 7.3 gm/dL (5.7-8.2); Troponin I < 0.020 ng/mL (0.0-0.045); eGFR > 60 See Note
[2025-04-28 12:24] LABS: Clarity,Urine Hazy (Clear/Hazy)
[2025-04-28 12:38] LABS: HCG Qualitative,Urine Negative
[2025-04-28 13:17] LABS: Basophils # (Auto) 0.1 Thou/mm3 (0.0-0.2); Basophils % (Auto) 1 % (0-2.5); Eosinophils # (Auto) 0.1 Thou/mm3 (0.0-0.5); Eosinophils % (Auto) 2 % (0-10); Hematocrit 38.2 % (36.0-46.0); Hemoglobin 12.6 g/dL (12.0-16.0); Immature Granulocytes Auto 0.03 Thou/mm3 (0.00-0.00); Lymphocytes # (Auto) 1.9 Thou/mm3 (1.0-4.8); Lymphocytes % (Auto) 28 % (10-50); Mean Corpuscular HGB Conc 33.0 g/dl (31.0-37.0); Mean Corpuscular Hemoglobin 29.5 pg (25.0-35.0); Mean Corpuscular Volume 90 fL (80-100); Monocytes # (Auto) 0.4 Thou/mm3 (0.0-0.8); Monocytes % (Auto) 7 % (0-12); Neutrophils # (Auto) 4.1 Thou/mm3 (1.8-7.7); Neutrophils % (Auto) 62 % (37-80); Nucleated Red Blood Cell # 0.00 Thou/mm3 (0.00-0.00); Nucleated Red Blood Cell % 0 /100 WBC (0); Platelet Count 220 Thou/mm3 (140-440); RDW Standard Deviation 41.9 fL (36.4-46.3); Red Blood Count 4.27 Miln/mm3 (4.00-5.20); White Blood Count 6.6 Thou/mm3 (3.6-11.0)
--- NOTE | 2025-04-28 13:45 | PD.EDADULT ---
ED General RME/HPI General Stated complaint: ANXIETY Time Seen by Provider: 04/28/25 12:14 Arrival date/time: 04/28/25 10:43 49-year-old female patient with significant history of depression hypothyroidism hypertension came in for evaluation regarding multiple complaints. Patient's been having nausea, anxious, jittery, headache, palpitation, hyperventilation, which been going for the last several weeks. Patient family told me that they are under a lot of stress lately due to somebody in the family recently and have to take care of the grandkids. Patient denies any homicidal or suicidal ideation. RME / HPI RME / HPI narrative: 04/28/25 10:43 49-year-old female presents to the emergency room today for complaints of Exam: On exam patient well-appearing does not appear ill or toxic Impression: Lab work imaging EKG obtained Related Data Home Medications ?Medication ?Instructions ?Recorded ?Confirmed buprenorphine 8 mg-naloxone 2 mg 1 film buccal 3XD 06/22/24 08/29/24 sublingual film gabapentin 300 mg capsule 300 mg PO 3XD 06/22/24 08/29/24 levothyroxine 137 mcg tablet 137 mcg PO 1XD 06/22/24 08/29/24 aspirin 81 mg tablet 81 mg PO QDAY 06/23/24 08/29/24 duloxetine 60 mg capsule,delayed 60 mg PO DAILY 06/23/24 08/29/24 release magnesium oxide 400 mg (241.3 mg 400 mg PO BID 06/23/24 08/29/24 magnesium) tablet ramelteon 8 mg tablet 8 mg PO HS PRN Sleep 06/23/24 08/29/24 cholecalciferol (vitamin D3) 125 125 mcg PO BID 08/29/24 08/29/24 mcg (5,000 unit) capsule Previous Rx's ?Medication ?Instructions ?Recorded cholecalciferol (vitamin D3) 250 250 mcg PO QWEEK #10 caps 06/23/24 mcg (10,000 unit) capsule calcium carbonate 1,200 mg (2 x 600 mg calcium 08/31/24 (1,500 mg)) PO BID #90 tabs hydralazine 25 mg tablet 25 mg PO TID #90 tabs 08/31/24 losartan 100 1 tab PO QDAY #30 tabs 08/31/24 mg-hydrochlorothiazide 12.5 mg tablet furosemide 20 mg tablet (Lasix) 20 mg PO QAM #30 tabs 11/21/24 potassium chloride 10 mEq 10 meq PO QDAY #30 caps 11/21/24 capsule,extended release ibuprofen 800 mg tablet 800 mg PO Q8H PRN pain #30 tabs 12/09/24 ondansetron HCl 4 mg tablet 4 mg PO Q8H PRN nausea and 04/28/25 vomiting 5 days #20 tabs Allergies Allergy/AdvReac Type Severity Reaction Status Date / Time No Known Allergies Allergy Verified 01/23/25 16:07 Review of Systems Review of Systems Narrative Review of Systems: Review of system reviewed and within normal limits except mentioned in HPI ED Exam Narrative Physical exam: VITAL SIGNS: Reviewed. GENERAL APPEARANCE: Alert and interactive, follows commands, no acute distress, HEAD AND FACE: Non-traumatic. ENT: PERRL, pink conjunctivitis, eyelid no trauma, Mucous membrane moist. NECK: Supple, nontender, no nuchal rigidity. CHEST: No tenderness, no crepitus, no paradoxical movement, no retractions. LUNGS: Clear, well ventilated, symmetric, no rales, no wheezing, no ronchi, no stridor, good breath sounds bilaterally. HEART: Regular rate, regular rhythm, no murmur, no gallops. ABDOMEN: Soft, positive bowel sounds, nondistended, no guarding, nontender, no rebound, no masses, RECTAL: Deferred. GENITAL: Deferred. NEUROLOGICAL: Gross motor function intact sensory function intact, Appropriate for age. MUSCULOSKELETAL: low back nontender, full range of motion. EXTREMITIES: Nontender, full range of motion. SKIN: Color pink, dry, no rash, no lacerations, no abrasions, no contusions. LYMPHATICS: Deferred. Course Quality Measures none Orders Category Date Time Status EKG (ED ONLY) *Do not use* NOW Care 04/28/25 10:53 Completed EKG (ED Only) Stat Exams 04/28/25 10:53 Draft XR chest 2V Stat Exams 04/28/25 11:19 Completed B-Type Natriuretic Peptide Stat Lab 04/28/25 11:32 Completed CBC Stat Lab 04/28/25 11:32 Completed Comprehensive Metabolic Panel Stat Lab 04/28/25 11:32 Completed Drug Screen,Urine Stat Lab 04/28/25 11:22 Completed Free T4 (Free Thyroxine) Stat Lab 04/28/25 11:32 Completed HCG Qualitative,Urine Stat Lab 04/28/25 11:22 Completed Magnesium Stat Lab 04/28/25 11:32 Completed Partial Thromboplastin Time Stat Lab 04/28/25 11:32 Completed Prothrombin Time with INR Stat Lab 04/28/25 11:32 Completed TSH [Thyroid Stimulating Hormone] Stat Lab 04/28/25 11:32 Completed Troponin I Stat Lab 04/28/25 11:32 Completed Urinalysis, C/S if Indicated Stat Lab 04/28/25 11:22 Completed Ondansetron Odt [Zofran Odt] Med 04/28/25 13:43 Discontinued 4 mg PO X1 ONE Vital Signs Vital signs: Vital Signs Temperature 98.5 F 04/28/25 10:48 Pulse Rate 57 L 04/28/25 10:48 Respiratory Rate 18 04/28/25 10:48 Blood Pressure 141/85 H 04/28/25 10:48 Pulse Oximetry (%) 97 04/28/25 10:48 Oxygen Delivery Method Room Air 04/28/25 10:48 Discharge Plan Plan Patient Disposition: HOME (Self Care) Discharge Disposition comment: stable Prescriptions/Referrals Prescriptions/Med Rec: New ondansetron HCl 4 mg tablet 4 mg PO Q8H PRN (Reason: nausea and vomiting) 5 Days Qty: 20 0RF No Action levothyroxine 137 mcg tablet 137 mcg PO 1XD Patient Comments: TAKE ONE TABLET BY MOUTH ONCE DAILY BEFORE BREAKFAST gabapentin 300 mg capsule 300 mg PO 3XD buprenorphine-naloxone 8-2 mg film 1 film BUCCAL 3XD Patient Comments: COMPLETELY DISSOLVE 1 FILM UNDER THE TONGUE THREE TIMES A DAY FOR 4 TO 8 MINUTES aspirin 81 mg Tablet 81 mg PO QDAY duloxetine 60 mg capsule,delayed release(DR/EC) 60 mg PO DAILY magnesium oxide 400 mg (241.3 mg magnesium) tablet 400 mg PO BID Rx Instructions: last dose a wek ago before admission. ramelteon 8 mg tablet 8 mg PO HS PRN (Reason: Sleep) cholecalciferol (vitamin D3) 250 mcg (10,000 unit) capsule 250 mcg PO QWEEK Qty: 10 0RF furosemide [Lasix] 20 mg tablet 20 mg PO QAM Qty: 30 0RF potassium chloride 10 mEq capsule, extended release 10 meq PO QDAY Qty: 30 0RF ibuprofen 800 mg tablet 800 mg PO Q8H PRN (Reason: pain) Qty: 30 0RF cholecalciferol (vitamin D3) 125 mcg (5,000 unit) capsule 125 mcg PO BID Patient Comments: TAKE TWO CAPSULES BY MOUTH EVERY DAY VITAMIN calcium carbonate 600 mg calcium (1,500 mg) Tablet 1,200 mg PO BID Qty: 90 3RF hydralazine 25 mg Tablet 25 mg PO TID Qty: 90 3RF losartan-hydrochlorothiazide 100-12.5 mg tablet 1 tab PO QDAY Qty: 30 3RF Referrals: Amelia Ibarra FNP-C [Primary Care Provider] - In 1 week Problem List Clinical Impression: Acute stress reaction Patient/Caregiver Discharge Instructions Discharge Activity: activity as tolerated Education Materials: Identifying Causes of Stress Additional Instructions: Thank you for the opportunity for serving you today. You are stable for discharged . You are advised to: Follow-up with your PCP in 1 to 2 days Return to ED for worsening of symptoms Increase oral fluids Take medication as prescribed Print Language: Bulgarian Stand Alone Forms: Sharetribe Award Info., Patient Portal Info Letter DAMARIS Supervising Physician DAMARIS Supervising Physician: MD Arti MDM Narrative MDM hospital course (for use when minimal MDM required): 49-year-old female patient with significant history of depression hypothyroidism hypertension came in for evaluation regarding multiple complaints. Patient's been having nausea, anxious, jittery, headache, palpitation, hyperventilation, which been going for the last several weeks. Patient family told me that they are under a lot of stress lately due to somebody in the family recently and have to take care of the grandkids. Patient denies any homicidal or suicidal ideation. Patient's workup today all came back unremarkable including CBC CMP urinalysis. Unremarkable. Drug toxicity positive for marijuana. I personally reviewed and interpreted the x-ray of this patient. There is no acute abnormalities found, no infiltrates no pneumothorax no hemothorax normal chest x-ray. Review of other structures was without significant abnormal findings also. I additionally reviewed the radiologist report and agree with the interpretation. EKG showed sinus bradycardia ventricular rate of [address] segment elevation or depression noted. Patient was noted to be guarding in the emergency room. Patient was given Zofran. Patient was advised to follow-up with PCP and asked for referral to mental health. Patient agrees with the plan. Stable for discharge home. Medication Administration(s) Medication Administration History Discontinued Medications Ondansetron HCl (Ondansetron Odt 4 Mg Tabrap) 4 mg PO X1 ONE; Protocol Stop: 04/28/25 13:44 Diagnosis Differential Diagnosis ED Complaint MDM: Acute anxiety reaction, depression, vomiting Diagnoses ruled out and/or further discussions: Acute stress reaction
[2025-04-28] MEDS: ONDANSETRON ODT 4 MG TABRAP PO (13:57)
== END 2025-04-28 14:10 | disposition home or self-care (01) ==
PROVIDERS: Nurse Practitioner Primary Care; Emergency Provider Family Medicine
DX: F43.0 Acute stress reaction (principal); I10 Essential (primary) hypertension
CPT/HCPCS: 36415; 71046; 80053; 80307; 81001; 81025; 83735; 83880; 84439; 84443; 84484; 85025; 85610; 85730; 93005; 99283; Q0162